=== PATIENT | male | born 1955 | race Caucasian/White ===

== ENCOUNTER 2021-09-11 08:28 | Day surgery (SDC) | payer MEDICARE, SELFPAY ==
[2021-09-11] VITALS (10 sets, daily range): BP systolic 112–179; BP diastolic 60–86; PULSE 55–83; RESP 16–22; TEMP 36.8–37; O2SAT 96–99; BMI 29.0
--- NOTE | ~2021-09-11 | FL_ITS ---
EXAMINATION: XR FLUOROSCOPY WITH IMAGES CLINICAL INFORMATION: Left UVJ calculus. Stent placement. COMPARISON: CT abdomen and pelvis with contrast 09/11/2021. TECHNIQUE: Fluoroscopy performed by Dr. Braulio Silverman. Fluoroscopy time: 34 seconds Cumulative dose: 13.57 mGy Images: 3 FINDINGS: Initial image shows contrast in the left urinary tract guidewire. Final image shows a left ureteral stent overlying left collecting system. No extravasation of contrast. FL/FL guidance in OR IMPRESSION: Fluoroscopy for urologic procedure.
--- NOTE | ~2021-09-11 | CT_ITS ---
EXAMINATION: CT ABDOMEN AND PELVIS WITH CONTRAST CLINICAL INFORMATION: Left lower quadrant and left flank abdominal pain COMPARISON: None TECHNIQUE: Multidetector volumetric images were obtained from the superior aspect of the liver through the pubic symphysis following administration 85 mL of Omnipaque 350 intravenous contrast. Sagittal and coronal reformatted images were obtained on the technologist's workstation. Oral contrast: Yes This CT examination was performed using dose optimization techniques as appropriate, variously including the following: *Automated exposure control *Adjustment of mA and/or kV according to patient size (this includes techniques or standardized protocols for targeted exams where dose is matched to indication/reason for exam; i.e. extremities or head) *Use of iterative reconstruction technique DLP: 689 mGy-cm FINDINGS: LUNG BASES: The visualized lung bases are unremarkable. LIVER, GALLBLADDER, AND BILIARY TREE: The liver is normal in size, shape, and attenuation. No focal hepatic lesion or biliary ductal dilatation is present. The gallbladder is unremarkable with no evidence of radiopaque gallstones, gallbladder wall thickening, or obvious pericholecystic inflammatory changes. PANCREAS: Unremarkable. SPLEEN: Unremarkable. ADRENAL GLANDS: Unremarkable. KIDNEYS AND URETERS: There is mild left hydronephrosis and ureteral dilatation from a 3 mm left UVJ stone. There is left perinephric fat stranding and stranding of the fat surrounding the left proximal ureter. This is probably secondary to obstruction. Differential would include infection. There is a small 1 mm stone in the upper pole of the left kidney. The right kidney is normal appearing. BLADDER: There is a 3 mm left UVJ stone. The bladder is otherwise normal. GASTROINTESTINAL TRACT: There are postsurgical changes to the sigmoid colon. There is mild diverticulosis. No evidence of diverticulitis is seen. Small and large bowel is otherwise unremarkable. The appendix is unremarkable. The stomach is unremarkable. ABDOMINAL WALL: No significant hernia is appreciated. LYMPH NODES: Normal. VASCULAR: Unremarkable. PELVIC VISCERA: Unremarkable. OSSEOUS STRUCTURES: Unremarkable. CT/CT abdomen pelvis w con IMPRESSION: Left hydronephrosis and ureteral dilatation from a 3 mm left UVJ stone. Stranding of the left perinephric fat and fat surrounding the left proximal ureter probably related to obstruction/backflow of urine. Differential would include infection. Small left upper pole renal stone. Diverticulosis. Fleischner guidelines were followed.
--- NOTE | 2021-09-11 09:29 | ED.ABDPAIN ---
HPI - Abdominal Pain General Chief Complaint: Abdominal Pain Stated Complaint: Colon rupture? Time Seen by Provider: 09/11/21 09:17 Source: patient Mode of arrival: ambulatory History of Present Illness HPI narrative: 65-year-old male with past medical history of diverticulitis s/p colon resection, renal stones, presenting to the ED complaining of left flank and LLQ abdominal pain since 03:00. Admits pain is constant with associated nausea, and dark BM this morning. Denies fever, chills, vomiting, diarrhea, dysuria/hematuria. Takes 81 ASA denies other AC MD elicited complaint: abdominal pain Pertinent past history: diverticulitis and kidney stones Related Data Home Medications Medication Instructions Recorded Confirmed aspirin 81 mg tablet,delayed 81 mg PO DAILY 09/11/21 09/11/21 release Allergies Allergy/AdvReac Type Severity Reaction Status Date / Time vancomycin Allergy Unknown Verified 09/11/21 08:52 Review of Systems Review of Systems Constitutional: No Fever, No Chills, No Fatigue, No Malaise ENT/Mouth: No Hearing loss, No Ear Pain, No Nasal Congestion, No sore throat, No Rhinorrhea, No Swallowing Difficulty Eyes: No Eye Pain, No Swelling, No Redness Cardiovascular: No Chest Pain, No SOB, No Edema, No Palpitations Respiratory: No Cough, No Sputum, No Dyspnea Gastrointestinal: + Nausea, No Vomiting, No Diarrhea, No Constipation, + Abdominal pain, No Hematochezia, + Melena Genitourinary: No Dysuria, No Urinary Frequency, No Hematuria, No Urinary Incontinence, No Urgency, + Flank Pain, No Urinary Flow Changes, No Hesitancy Musculoskeletal: No joint pain, No Myalgias, No Joint Swelling Skin: No Skin Lesions, No rash Neuro: No Weakness, No Numbness, No Loss of Consciousness, No Dizziness, No Headache Yes all other systems are reviewed and are negative [facility] Past Medical History Attestation statement: The following information was validated with the patient. Medical History Diverticulitis Surgical History History of resection of large bowel Social History Social History Patient Tobacco Use Status: Former Tobacco user Quit Date: 10/2007 Tobacco use type: Cigarette Smoked in Last 30 Days: No Are you DNR?: No Advance Directives: No Advance Directives Information Provided: Yes Physical Exam ED Vital Signs: Vital Signs - 24 hr 09/11/21 08:53 09/11/21 11:16 09/11/21 12:00 Temperature 98.3 F Pulse Rate 55 67 83 Respiratory Rate 20 22 H 18 Blood Pressure 137/86 179/80 H 148/60 H Pulse Oximetry 99 97 98 09/11/21 15:11 Temperature 98.5 F Pulse Rate 59 Respiratory Rate 16 Blood Pressure 119/63 Pulse Oximetry 97 BMI result Body Mass Index 29.0 Const General: cooperative, healthy appearing and no acute distress Orientation/consciousness: patient oriented x3 Limitations: no limitations HENMT Head: Yes normal to inspection and Yes atraumatic Ears: hearing grossly normal bilaterally General nose exam: Normal external nose present Face and sinus: Yes normal facial exam Eyes General: appearance normal, both eyes and all related structures EOM: EOMs intact bilaterally Neck Neck: Yes normal visual inspection and Yes no meningeal signs Resp Effort & Inspection: normal respiratory effort and no respiratory distress Cardio Rate: regular rate Heart sounds: S1 normal heart sound present and S2 normal heart sound present GI Inspection: Yes normal to inspection Palpation (GI): Soft to palpation, Tenderness to palpation present (GI) (Suprapubic) in the LLQ, no guarding and not rigid General: Yes CVA tenderness on the left Back/Spine/Pelvis Back: CVA tenderness Skin Rashes: no rashes Wounds: no wounds Neuro General: patient oriented x3, tone normal and no meningeal signs Gait exam (Neuro): Normal gait present Extrem General: Yes normal to inspection Course Course Course Narrative: -1020--leukocytosis of 19.2. Lactic acid 2.3 > blood cultures, 30mg/kg IVF and empiric Zosyn ordered. 1200-- CT abdomen pelvis w con IMPRESSION: Left hydronephrosis and ureteral dilatation from a 3 mm left UVJ stone. Stranding of the left perinephric fat and fat surrounding the left proximal ureter probably related to obstruction/backflow of urine. Differential would include infection. Small left upper pole renal stone. Diverticulosis. >> urology consulted -Dr. Silverman will evaluate patient in the ED, needs stent, added on procedure for later today. NPO at this time MDM - Abdominal Pain MDM Narrative Medical decision making narrative: 65-year-old male with past medical history of diverticulitis s/p colon resection, renal stones, presenting to the ED complaining of left flank and LLQ abdominal pain since 03:00. On exam vital signs stable, NAD, appears in pain, abdomen soft with lower/LLQ and left CVA tenderness, no rebound or guarding. On rectal brown stool noted. Concern for diverticulitis vs renal stone vs ?Pyelo vs occult GI bleeding Lower concern for appendicitis, cholecystitis/cholelithiasis or pancreatitis Plan: Labs, UA, IVF, CT abdomen/pelvis, symptomatic treatment, re-evaluate Differential Diagnosis Differential diagnosis: Likely abdominal pain and diverticulitis Medical Records Attestation: I reviewed the patient's medical records. Lab Data Attestation: I reviewed the patient's lab results. Result diagrams: 09/11/21 09:42 09/11/21 09:42 Labs: Lab Results 09/11/21 09/11/21 09/11/21 Range/Units 09:42 09:42 09:42 WBC 19.2 H (4.8-10.8) X10*3/uL RBC 4.38 L (4.60-5.80) X10*6/uL Hgb 14.5 (14.0-18.0) g/dl Hct 42.3 (42.0-52.0) % MCV 96.6 (80.0-98.0) fL MCH 33.1 H (27.0-33.0) pg MCHC 34.3 (31.0-36.0) g/dl RDW 13.3 (11.0-16.0) % Plt Count 223 (160-400) X10*3/uL MPV 10.2 (9.4-12.4) fL Immature Gran % (Auto) 0.9 H (0.0-0.4) % Neut % (Auto) 84.7 H (45-73) % Lymph % (Auto) 8.2 L (20-40) % [place] % (Auto) 5.9 (2-11) % Eos % (Auto) 0.1 (0-4) % Baso % (Auto) 0.2 (0-2) % Lymph # (Auto) 1.6 (1.2-4.9) X10*3/uL [place] # (Auto) 1.1 (0.1-1.2) X10*3/uL Eos # (Auto) 0.0 (0.0-0.4) X10*3/uL Baso # (Auto) 0.0 (0.0-0.2) X10*3/uL Abs Immat Gran (auto) 0.18 H (0.00-0.03) X10*3/uL Absolute Neuts (auto) 16.2 H (2.0-8.3) x10*3/uL Absolute Nucleated RBC 0.000 (0.0-0.012) X10*3/uL Nucleated RBC % (auto) 0.0 (0.0-0.2) /100WBC PT 10.6 (9.9-13.0) SEC INR 0.9 (0.9-1.1) Sodium 137 (135-145) mmol/L Potassium 4.6 (3.3-5.1) mmol/L Chloride 103 (96-108) mmol/L Carbon Dioxide 24 (22-29) mmol/L Anion Gap 15 (12-20) BUN 17 H (9-16) mg/dL Creatinine 1.17 (0.5-1.4) mg/dL Estim Creat Clear Calc 62.3 Estimated GFR > 60 Random Glucose 254 H (60-115) mg/dL Lactic Acid (0.5-2.0) mmol/L Lactic Acid F/U @ 2Hr (0.5-2.0) mmol/L Lactic Acid F/U @ 4Hr (0.5-2.0) mmol/L Calcium 9.3 (8.4-10.2) mg/dL Magnesium 1.9 (1.6-2.6) mg/dL Total Bilirubin 0.6 (0.0-1.0) mg/dL Direct Bilirubin 0.2 (0.0-0.5) mg/dL AST 14 (5-37) U/L ALT 23 (0-40) U/L Alkaline Phosphatase 91 (39-117) U/L Total Protein 6.8 (6.5-8.0) g/dL Albumin 3.9 (3.5-5.0) g/dL Lipase 20 (8-78) U/L Urine Color Urine Appearance Urine pH (5.0-8.0) Ur Specific [place] (1.005-1.025) Urine Protein (NEG-TRACE) MG/DL Urine Glucose (UA) (NEG) MG/DL Urine Ketones (NEG) MG/DL Urine Blood (NEG) Urine Nitrite (NEG) Ur Leukocyte Esterase (NEG) Urine RBC (0) /HPF Urine WBC (0-4) /HPF Ur Squamous Epith Cells /LPF Urine Bacteria /LPF Stool Occult Blood (NEGATIVE) COVID-19 (BALTAZAR) (Negative) COVID-19 Clin Com 09/11/21 09/11/21 09/11/21 Range/Units 09:42 11:15 11:41 WBC (4.8-10.8) X10*3/uL RBC (4.60-5.80) X10*6/uL Hgb (14.0-18.0) g/dl Hct (42.0-52.0) % MCV (80.0-98.0) fL MCH (27.0-33.0) pg MCHC (31.0-36.0) g/dl RDW (11.0-16.0) % Plt Count (160-400) X10*3/uL MPV (9.4-12.4) fL Immature Gran % (Auto) (0.0-0.4) % Neut % (Auto) (45-73) % Lymph % (Auto) (20-40) % [place] % (Auto) (2-11) % Eos % (Auto) (0-4) % Baso % (Auto) (0-2) % Lymph # (Auto) (1.2-4.9) X10*3/uL [place] # (Auto) (0.1-1.2) X10*3/uL Eos # (Auto) (0.0-0.4) X10*3/uL Baso # (Auto) (0.0-0.2) X10*3/uL Abs Immat Gran (auto) (0.00-0.03) X10*3/uL Absolute Neuts (auto) (2.0-8.3) x10*3/uL Absolute Nucleated RBC (0.0-0.012) X10*3/uL Nucleated RBC % (auto) (0.0-0.2) /100WBC PT (9.9-13.0) SEC INR (0.9-1.1) Sodium (135-145) mmol/L Potassium (3.3-5.1) mmol/L Chloride (96-108) mmol/L Carbon Dioxide (22-29) mmol/L Anion Gap (12-20) BUN (9-16) mg/dL Creatinine (0.5-1.4) mg/dL Estim Creat Clear Calc Estimated GFR Random Glucose (60-115) mg/dL Lactic Acid 2.3 H* (0.5-2.0) mmol/L Lactic Acid F/U @ 2Hr (0.5-2.0) mmol/L Lactic Acid F/U @ 4Hr (0.5-2.0) mmol/L Calcium (8.4-10.2) mg/dL Magnesium (1.6-2.6) mg/dL Total Bilirubin (0.0-1.0) mg/dL Direct Bilirubin (0.0-0.5) mg/dL AST (5-37) U/L ALT (0-40) U/L Alkaline Phosphatase (39-117) U/L Total Protein (6.5-8.0) g/dL Albumin (3.5-5.0) g/dL Lipase (8-78) U/L Urine Color YELLOW Urine Appearance CLEAR Urine pH 7.5 (5.0-8.0) Ur Specific [place] 1.010 (1.005-1.025) Urine Protein NEG (NEG-TRACE) MG/DL Urine Glucose (UA) 250 H (NEG) MG/DL Urine Ketones NEG (NEG) MG/DL Urine Blood TRACE (NEG) Urine Nitrite NEG (NEG) Ur Leukocyte Esterase NEG (NEG) Urine RBC 5-9 H (0) /HPF Urine WBC 0 (0-4) /HPF Ur Squamous Epith Cells NONE /LPF Urine Bacteria NONE /LPF Stool Occult Blood NEGATIVE (NEGATIVE) COVID-19 (BALTAZAR) (Negative) COVID-19 Clin Com 09/11/21 09/11/21 09/11/21 Range/Units 12:12 12:12 14:26 WBC (4.8-10.8) X10*3/uL RBC (4.60-5.80) X10*6/uL Hgb (14.0-18.0) g/dl Hct (42.0-52.0) % MCV (80.0-98.0) fL MCH (27.0-33.0) pg MCHC (31.0-36.0) g/dl RDW (11.0-16.0) % Plt Count (160-400) X10*3/uL MPV (9.4-12.4) fL Immature Gran % (Auto) (0.0-0.4) % Neut % (Auto) (45-73) % Lymph % (Auto) (20-40) % [place] % (Auto) (2-11) % Eos % (Auto) (0-4) % Baso % (Auto) (0-2) % Lymph # (Auto) (1.2-4.9) X10*3/uL [place] # (Auto) (0.1-1.2) X10*3/uL Eos # (Auto) (0.0-0.4) X10*3/uL Baso # (Auto) (0.0-0.2) X10*3/uL Abs Immat Gran (auto) (0.00-0.03) X10*3/uL Absolute Neuts (auto) (2.0-8.3) x10*3/uL Absolute Nucleated RBC (0.0-0.012) X10*3/uL Nucleated RBC % (auto) (0.0-0.2) /100WBC PT (9.9-13.0) SEC INR (0.9-1.1) Sodium (135-145) mmol/L Potassium (3.3-5.1) mmol/L Chloride (96-108) mmol/L Carbon Dioxide (22-29) mmol/L Anion Gap (12-20) BUN (9-16) mg/dL Creatinine (0.5-1.4) mg/dL Estim Creat Clear Calc Estimated GFR Random Glucose (60-115) mg/dL Lactic Acid (0.5-2.0) mmol/L Lactic Acid F/U @ 2Hr 2.4 H* (0.5-2.0) mmol/L Lactic Acid F/U @ 4Hr 1.9 (0.5-2.0) mmol/L Calcium (8.4-10.2) mg/dL Magnesium (1.6-2.6) mg/dL Total Bilirubin (0.0-1.0) mg/dL Direct Bilirubin (0.0-0.5) mg/dL AST (5-37) U/L ALT (0-40) U/L Alkaline Phosphatase (39-117) U/L Total Protein (6.5-8.0) g/dL Albumin (3.5-5.0) g/dL Lipase (8-78) U/L Urine Color Urine Appearance Urine pH (5.0-8.0) Ur Specific [place] (1.005-1.025) Urine Protein (NEG-TRACE) MG/DL Urine Glucose (UA) (NEG) MG/DL Urine Ketones (NEG) MG/DL Urine Blood (NEG) Urine Nitrite (NEG) Ur Leukocyte Esterase (NEG) Urine RBC (0) /HPF Urine WBC (0-4) /HPF Ur Squamous Epith Cells /LPF Urine Bacteria /LPF Stool Occult Blood (NEGATIVE) COVID-19 (BALTAZAR) Negative (Negative) COVID-19 Clin Com See Note Discharge Plan Discharge Clinical Impression: Ureterovesical junction (UVJ) obstruction Patient Disposition: Admitted As Inpatient Discharge Date/Time: 09/11/21 15:25
[2021-09-11] MEDS: 0.9 % Sodium Chloride 1,000 ML 999 ML IV ×2 (09:43→10:26)
[2021-09-11] MEDS: ondansetron HCL 4 MG/2 ML VIAL IVPUSH (09:43)
[2021-09-11 09:45] LABS: MANUAL DIFF FLAG NO
[2021-09-11] MEDS: Morphine Sulfate 2 MG/ML CARTRIDGE IVPUSH ×2 (09:49→11:19)
[2021-09-11 09:51] LABS: Basophils Percent Auto 0.2 % (0-2); Eosinophils Percent Auto 0.1 % (0-4); Hematocrit 42.3 % (42.0-52.0); Hemoglobin 14.5 g/dl (14.0-18.0); Imm Gran Abs Auto 0.18 X10*3/uL (0.00-0.03); Imm Gran Pct Auto 0.9 % (0.0-0.4); Lymphocytes Absolute Auto 1.6 X10*3/uL (1.2-4.9); Lymphocytes Percent Auto 8.2 % (20-40); Mean Corpuscular HGB Conc 34.3 g/dl (31.0-36.0); Mean Corpuscular Hemoglobin 33.1 pg (27.0-33.0); Mean Corpuscular Volume 96.6 fL (80.0-98.0); Mean Platelet Volume 10.2 fL (9.4-12.4); Monocytes Absolute Auto 1.1 X10*3/uL (0.1-1.2); Monocytes Percent Auto 5.9 % (2-11); Neutrophils Absolute Auto 16.2 x10*3/uL (2.0-8.3); Neutrophils Percent Auto 84.7 % (45-73); Platelet Count 223 X10*3/uL (160-400); Red Blood Count 4.38 X10*6/uL (4.60-5.80); Red Cell Distribution Width 13.3 % (11.0-16.0); White Blood Count 19.2 X10*3/uL (4.8-10.8)
[2021-09-11 09:55] LABS: INTERNATIONAL NORM RATIO 0.9 (0.9-1.1); Prothrombin Time 10.6 SEC (9.9-13.0)
--- NOTE | 2021-09-11 10:03 | PC.NURSE ---
Pt comes in from home with complaints of LLQ abd pain, L flank pain and nausea with dry heaves since 0300 this morning. Pt has a PMHX of diverticulitis as well as kidney stones. Pt denies any trouble urinating at this time. Pt is A&Ox4, LCA, abd soft TTP with +BS at this time. IV established, medicated as per MAR orders, awaiting CT scan at this time. call chew within reach, will continue to monitor.
[2021-09-11 10:07] LABS: Alanine Aminotransferase 23 U/L (0-40); Albumin Level 3.9 g/dL (3.5-5.0); Alkaline Phosphatase 91 U/L (39-117); Anion Gap 15 (12-20); Aspartate Amino Transferase 14 U/L (5-37); Bilirubin Direct 0.2 mg/dL (0.0-0.5); Bilirubin Total 0.6 mg/dL (0.0-1.0); Blood Urea Nitrogen 17 mg/dL (9-16); Calcium 9.3 mg/dL (8.4-10.2); Carbon Dioxide 24 mmol/L (22-29); Chloride 103 mmol/L (96-108); Creatinine Clr Calc Pharmacy 62.3; Estimated Glomerular Filt Rate > 60; Glucose Random 254 mg/dL (60-115); Lipase 20 U/L (8-78); Magnesium 1.9 mg/dL (1.6-2.6); Potassium 4.6 mmol/L (3.3-5.1); Sodium 137 mmol/L (135-145); Total Protein 6.8 g/dL (6.5-8.0)
[2021-09-11 10:08] LABS: Lactic Acid 2.3 mmol/L (0.5-2.0)
[2021-09-11] MEDS: 0.9 % Sodium Chloride 500 ML 999 ML IV ×2 (10:27→13:55)
[2021-09-11] MEDS: iohexoL 350 MG/ML 100 ML INFUS..BTL IV (11:16)
[2021-09-11] MEDS: Piperacillin Sodium/Tazobactam 3.375 GM in 0.9 % Sodium Chloride 50 ML IV (11:19)
[2021-09-11 11:28] LABS: OBS Int Ctl Valid YES; OBS1 NEGATIVE (NEGATIVE)
[2021-09-11 11:49] LABS: Reflex Lactate? Lactic Acid Added
[2021-09-11 12:11] LABS: Appearance Urine CLEAR; Color Urine YELLOW; Glucose Urine UA 250 MG/DL (NEG); Leukocyte Esterase Urine NEG (NEG); Nitrite Urine NEG (NEG); PH 7.5 (5.0-8.0); UACC Culture Trigger NO; Urine Blood TRACE (NEG); Urine Ketones NEG (NEG); Urine Protein NEG (NEG-TRACE)
[2021-09-11 12:33] LABS: WBC Urine 0 /HPF (0-4)
[2021-09-11 12:35] LABS: COVID-19 Test Negative (Negative)
[2021-09-11] MEDS: Ketorolac Tromethamine 15 MG/ML VIAL IVPUSH (12:35)
[2021-09-11 12:43] LABS: ~Lactic Acid-LAB USE ONLY 2.4 mmol/L (0.5-2.0)
--- NOTE | 2021-09-11 12:50 | PHA.MEDREC ---
Pharmacy Consult ? Medication Reconciliation Pharmacy has completed the medication reconciliation.
[2021-09-11] MEDS: levoFLOXacin/D5W 500 MG/100 ML PIGGYBACK 100 MG IV (13:55)
[2021-09-11 14:14] LABS: Reflex Lactate? 2 Y
[2021-09-11 14:46] LABS: ~Lactic Acid-LAB USE ONLY 1.9 mmol/L (0.5-2.0)
--- NOTE | 2021-09-11 15:42 | PC.NURSE ---
500 ml bag of Normal Saline finished on arrival to preop area, 1000 ml RL started in preop
--- NOTE | 2021-09-11 16:19 | PM.UROCN ---
History of Present Illness Consult details Consult date: 09/11/21 Narrative: Ender is a pleasant 65-year-old male Presents to hospital with left-sided flank pain Prior history of stones which he has typically passed without intervention Unable to tolerate intake or medications Creatinine 1.[address] scan 3 mm distal left ureteric stone with hydroureteronephrosis and significant stranding around kidney Based on constellation of symptoms and imaging results recommend cystoscopy with left retrograde and stent placement Review of Systems Constitutional: Constitutional: Reports as per HPI and Reports no additional constitutional complaints Cardiovascular: Cardiovascular: Reports as per HPI and Reports no additional cardiovascular complaints Respiratory: Respiratory: Reports as per HPI and Reports no additional respiratory complaints Gastrointestinal: Gastrointestinal: Reports as per HPI and Reports no additional gastrointestinal complaints Genitourinary: Genitourinary: Reports as per HPI Musculoskeletal: Musculoskeletal: Reports no additional musculoskeletal complaints and Reports as per HPI Neurologic: Reports system reviewed and no additional complaints, except as documented and Reports as per HPI PMFSH Past Medical History Medical History Diverticulitis Surgical History Surgical History History of resection of large bowel Social History Social History Patient Tobacco Use Status: Former Tobacco user Quit Date: 10/2007 Tobacco use type: Cigarette Smoked in Last 30 Days: No Are you DNR?: No Advance Directives: No Advance Directives Information Provided: Yes Meds Allergies Allergy/AdvReac Type Severity Reaction Status Date / Time vancomycin Allergy Unknown Verified 09/11/21 08:52 Active Medications: Current Medications Pharmacy Consult (Consult Rx Perform Med Rec) 1 each MISCELLANE ONCE PRN PRN Reason: Consult order Home Medications Medication Instructions Recorded Confirmed Last Taken Type aspirin 81 mg tablet,delayed 81 mg PO DAILY 09/11/21 09/11/21 09/10/21 History release Physical Exam Vital Signs: Vital Signs: Last Vital Signs Temp 98.5 F 09/11/21 15:11 Pulse 59 09/11/21 15:11 Resp 16 09/11/21 15:11 BP 119/63 09/11/21 15:11 Pulse Ox 97 09/11/21 15:11 BMI result Body Mass Index 29.0 Const: General: cooperative, healthy appearing, comfortable and no acute distress Orientation/consciousness: patient oriented x3 HEENT: Face and sinus: Yes normal facial exam Mouth: moist mucous membranes Neck: Neck: Yes normal visual inspection, Yes full ROM and Yes trachea midline Chest: Chest palpation & inspection: normal inspection of the chest Resp: Effort & Inspection: normal respiratory effort, able to speak in complete sentences and no respiratory distress GI: Inspection: Yes normal to inspection Back/Spine/Pelvis: Cervical Spine: normal cervical lordosis Thoracic/Lumbar Spine: thoracic and lumbar spine normal to inspection Skin: General skin exam: no rashes or lesions noted Neuro: General: patient oriented x3, tone normal and moves all extremities Extrem: General: Yes normal to inspection and Yes capillary refill normal Results Labs Result diagrams: 09/11/21 09:42 09/11/21 09:42 Labs: Abnormal lab results 09/11/21 09/11/21 09/11/21 Range/Units 09:42 09:42 09:42 WBC 19.2 H (4.8-10.8) X10*3/uL RBC 4.38 L (4.60-5.80) X10*6/uL MCH 33.1 H (27.0-33.0) pg Immature Gran % (Auto) 0.9 H (0.0-0.4) % Neut % (Auto) 84.7 H (45-73) % Lymph % (Auto) 8.2 L (20-40) % Abs Immat Gran (auto) 0.18 H (0.00-0.03) X10*3/uL Absolute Neuts (auto) 16.2 H (2.0-8.3) x10*3/uL BUN 17 H (9-16) mg/dL Random Glucose 254 H (60-115) mg/dL Lactic Acid 2.3 H* (0.5-2.0) mmol/L Lactic Acid F/U @ 2Hr (0.5-2.0) mmol/L Urine Glucose (UA) (NEG) MG/DL Urine RBC (0) /HPF 09/11/21 09/11/21 Range/Units 11:41 12:12 WBC (4.8-10.8) X10*3/uL RBC (4.60-5.80) X10*6/uL MCH (27.0-33.0) pg Immature Gran % (Auto) (0.0-0.4) % Neut % (Auto) (45-73) % Lymph % (Auto) (20-40) % Abs Immat Gran (auto) (0.00-0.03) X10*3/uL Absolute Neuts (auto) (2.0-8.3) x10*3/uL BUN (9-16) mg/dL Random Glucose (60-115) mg/dL Lactic Acid (0.5-2.0) mmol/L Lactic Acid F/U @ 2Hr 2.4 H* (0.5-2.0) mmol/L Urine Glucose (UA) 250 H (NEG) MG/DL Urine RBC 5-9 H (0) /HPF Short CBC 09/11/21 Range/Units 09:42 WBC 19.2 H (4.8-10.8) X10*3/uL Hgb 14.5 (14.0-18.0) g/dl Hct 42.3 (42.0-52.0) % Plt Count 223 (160-400) X10*3/uL BMP 09/11/21 09:42 Sodium 137 Potassium 4.6 Chloride 103 Carbon Dioxide 24 BUN 17 H Creatinine 1.17 Calcium 9.3 Liver Function 09/11/21 Range/Units 09:42 Total Bilirubin 0.6 (0.0-1.0) mg/dL Direct Bilirubin 0.2 (0.0-0.5) mg/dL AST 14 (5-37) U/L ALT 23 (0-40) U/L Alkaline Phosphatase 91 (39-117) U/L Albumin 3.9 (3.5-5.0) g/dL Urine 09/11/21 Range/Units 11:41 Urine Color YELLOW Urine Appearance CLEAR Urine pH 7.5 (5.0-8.0) Ur Specific [place] 1.010 (1.005-1.025) Urine Protein NEG (NEG-TRACE) MG/DL Urine Glucose (UA) 250 H (NEG) MG/DL All other labs normal. Assessment and Plan (1) Nephrolithiasis: Status: Acute (2) Elevated white blood cell count: Status: Acute (3) Hydroureteronephrosis: Status: Acute (4) Flank pain: Status: Acute Plan Risks, benefits and alternatives to therapy were discussed. These include but are not limited to infection, bleeding, damage to local organs and tissues, need for further interventions. Anesthetic risks regarding cardiac arrhythmia, blood clots, and potential mortality were discussed. The patient understands the typical recovery time and the outpatient nature of the procedure. After consideration of these risks the patient gives full informed consent and they wish to move ahead with the procedure. Cystoscopy, left retrograde, left stent placement Procedures Date of Service Date of Service: 09/11/21
--- NOTE | 2021-09-11 17:45 | MHC.SHP ---
Pre-Procedural Eval Section A Date of Service: 09/11/21 The patient is an INPATIENT: No Changes since office visit: No Cold of Flu in the past 2 weeks, No New Medical Problems, No Changes in Medication and No Patient answered all questions The History & Physical has been completed within 30 days and I have reviewed it.: Yes Section B Chief Complaint: Colon rupture? Details of Present Illness: distal left ureteric stone with hydroureteronephrosis Relevant Family History (Specify if Yes): No Relevant Social History: None Present Medications: see Short Stay Collaborative assessment Medical History: No relevant PMH History of Previous Operations: No relevant previous surgery Allergies: Allergies Allergy/AdvReac Type Severity Reaction Status Date / Time vancomycin Allergy Unknown Verified 09/11/21 08:52 Review of Systems Sugical H&P ROS: Negative: Constitution, Cardiovascular, Respiratory, Neurological, Psychiatric, Hem-Onc, Allergic/Immunologic, Gastrointestinal, Genitourinary, Musculoskeletal, Integumentary, Endocrine and Eyes/Ears/Nose/Throat Exam Surgical H&P Exam: Normal: HEENT, Normal: Heart, Normal: Lungs, Normal: Extremities, Normal: Abdomen, Normal: Skin and Normal: Neurological Plan Diagnosis/Plan: Unchanged ( cystoscopy, left retrograde, left stent placement) I have reviewed the history and physical and performed a pertinent physical examination on my patient. No changes have occurred unless specified.
--- NOTE | 2021-09-11 18:08 | P.CONAN_ITS ---
[facility] Active Problems Active Problems: All Active Problems (Updated 09/11/21 @ 17:15 by Kimmie Jackson) Flank pain (Acute) Hydroureteronephrosis (Acute) Elevated white blood cell count (Acute) Nephrolithiasis (Acute) Past Medical History Medical History Diverticulitis Family History Family history of problems with anesthesia: No Surgical History Surgical History History of resection of large bowel History of Problems with Anesthesia: No Social History Social History Patient Tobacco Use Status: Former Tobacco user Quit Date: 10/2007 Tobacco use type: Cigarette Smoked in Last 30 Days: No Are you DNR?: No Advance Directives: No Advance Directives Information Provided: Yes Meds Allergies Allergy/AdvReac Type Severity Reaction Status Date / Time vancomycin Allergy Unknown Verified 09/11/21 08:52 Active Medications: Current Medications Pharmacy Consult (Consult Rx Perform Med Rec) 1 each MISCELLANE ONCE PRN PRN Reason: Consult order Home Medications Medication Instructions Recorded Confirmed Last Taken Type aspirin 81 mg tablet,delayed 81 mg PO DAILY 09/11/21 09/11/21 09/10/21 History release Exam Exam Date and Time: September 11, [id number] Height,Weight and Vital Signs: Height 5 ft 6 in Weight 81.6 kg Last Vital Signs Temp 98.5 F 09/11/21 15:11 Pulse 59 09/11/21 15:11 Resp 16 09/11/21 15:11 BP 119/63 09/11/21 15:11 Pulse Ox 97 09/11/21 15:11 Pertinent Lab Results Pertinent Lab Results: Laboratory Tests 09/11/21 09/11/21 09/11/21 09:42 09:42 09:42 WBC 19.2 H RBC 4.38 L Hgb 14.5 Hct 42.3 MCV 96.6 MCH 33.1 H MCHC 34.3 RDW 13.3 Plt Count 223 MPV 10.2 Immature Gran % (Auto) 0.9 H Neut % (Auto) 84.7 H Lymph % (Auto) 8.2 L [place] % (Auto) 5.9 Eos % (Auto) 0.1 Baso % (Auto) 0.2 Lymph # (Auto) 1.6 [place] # (Auto) 1.1 Eos # (Auto) 0.0 Baso # (Auto) 0.0 Abs Immat Gran (auto) 0.18 H Absolute Neuts (auto) 16.2 H Absolute Nucleated RBC 0.000 Nucleated RBC % (auto) 0.0 PT 10.6 INR 0.9 Sodium 137 Potassium 4.6 Chloride 103 Carbon Dioxide 24 Anion Gap 15 BUN 17 H Creatinine 1.17 Estim Creat Clear Calc 62.3 Estimated GFR > 60 Random Glucose 254 H Lactic Acid Lactic Acid F/U @ 2Hr Lactic Acid F/U @ 4Hr Calcium 9.3 Magnesium 1.9 Total Bilirubin 0.6 Direct Bilirubin 0.2 AST 14 ALT 23 Alkaline Phosphatase 91 Total Protein 6.8 Albumin 3.9 Lipase 20 Urine Color Urine Appearance Urine pH Ur Specific [place] Urine Protein Urine Glucose (UA) Urine Ketones Urine Blood Urine Nitrite Ur Leukocyte Esterase Urine RBC Urine WBC Ur Squamous Epith Cells Urine Bacteria Stool Occult Blood COVID-19 (BALTAZAR) COVID-19 [employer] 09/11/21 09/11/21 09/11/21 09:42 11:15 11:41 WBC RBC Hgb Hct MCV MCH MCHC RDW Plt Count MPV Immature Gran % (Auto) Neut % (Auto) Lymph % (Auto) [place] % (Auto) Eos % (Auto) Baso % (Auto) Lymph # (Auto) [place] # (Auto) Eos # (Auto) Baso # (Auto) Abs Immat Gran (auto) Absolute Neuts (auto) Absolute Nucleated RBC Nucleated RBC % (auto) PT INR Sodium Potassium Chloride Carbon Dioxide Anion Gap BUN Creatinine Estim Creat Clear Calc Estimated GFR Random Glucose Lactic Acid 2.3 H* Lactic Acid F/U @ 2Hr Lactic Acid F/U @ 4Hr Calcium Magnesium Total Bilirubin Direct Bilirubin AST ALT Alkaline Phosphatase Total Protein Albumin Lipase Urine Color YELLOW Urine Appearance CLEAR Urine pH 7.5 Ur Specific [place] 1.010 Urine Protein NEG Urine Glucose (UA) 250 H Urine Ketones NEG Urine Blood TRACE Urine Nitrite NEG Ur Leukocyte Esterase NEG Urine RBC 5-9 H Urine WBC 0 Ur Squamous Epith Cells NONE Urine Bacteria NONE Stool Occult Blood NEGATIVE COVID-19 (BALTAZAR) COVID-19 [employer] 09/11/21 09/11/21 09/11/21 12:12 12:12 14:26 WBC RBC Hgb Hct MCV MCH MCHC RDW Plt Count MPV Immature Gran % (Auto) Neut % (Auto) Lymph % (Auto) [place] % (Auto) Eos % (Auto) Baso % (Auto) Lymph # (Auto) [place] # (Auto) Eos # (Auto) Baso # (Auto) Abs Immat Gran (auto) Absolute Neuts (auto) Absolute Nucleated RBC Nucleated RBC % (auto) PT INR Sodium Potassium Chloride Carbon Dioxide Anion Gap BUN Creatinine Estim Creat Clear Calc Estimated GFR Random Glucose Lactic Acid Lactic Acid F/U @ 2Hr 2.4 H* Lactic Acid F/U @ 4Hr 1.9 Calcium Magnesium Total Bilirubin Direct Bilirubin AST ALT Alkaline Phosphatase Total Protein Albumin Lipase Urine Color Urine Appearance Urine pH Ur Specific [place] Urine Protein Urine Glucose (UA) Urine Ketones Urine Blood Urine Nitrite Ur Leukocyte Esterase Urine RBC Urine WBC Ur Squamous Epith Cells Urine Bacteria Stool Occult Blood COVID-19 ([facility]TAZAR) Negative COVID-19 Clin Com See Note Airway Mallampati Class: II TM Dist: >3cm Neck ROM: Full Assessment and Plan Assessment Anesthesia Assessment: Anesthesia Plan Discussed and Chart Reviewed Final Anesthetic Review Family History of Problems with Anesthesia: No History of Problems with Anesthesia: No NPO: Yes ASA Class: II and Emergency Final Preanesthetic Review: No Changes in Pt Med Stat, Meds/Allgs Chart Reviewed, Consent Obtained/Reviewed and Anes Risks/Benef Reviewed Patient Risk: Low Procedure Risk: Low Anesthetic Plan Anesthetic Plan: GA Disposition: Standard PACU
--- NOTE | 2021-09-11 18:42 | P.OP_ITS ---
Operative Note Operative Note Date of Service: 09/11/21 Narrative: PreOperative Diagnosis: left distal ureteric stone Post Operative Diagnosis: left distal ureteric stone with hydronephrosis Procedure: cystoscopy, left retrograde, left stent placement, stone removal Surgeon: Dr Braulio Silverman Anesthesia: sedation Indications for procedure: left distal ureter external with hydroureteronephrosis Procedure: After informed consent was verified the patient was brought to the operating room and placed in a supine position. Anesthesia was administered per protocol. The patient was placed in modified dorsal lithotomy position and prepped and draped in a sterile fashion. A safety pause time-out was performed. Laterality of procedure and antibiotics were confirmed. appropriate imaging was available A 22 [place] cystoscope was introduced per urethra. No abnormality was noted. Both ureteric orifices were seen in a normal position. The left ureter was cannulated with an open ended catheter and a retrograde examination was performed. hydronephrosis present. Small stone then came free from ureter into bladder. . A Sensor guidewire was placed under fluoroscopy and a good coil was seen within the renal pelvis. A Six [place]ian by 24 cm double-J was advanced over the wire and up to the level of the renal pelvis under fluoroscopic and direct visualization. The stent was seen with appropriate coil within the renal pelvis and in the bladder after deployment. The patient tolerated the procedure well and was transferred in stable condition to the recovery area. Pathology: stone Drains: 6 [place] by 24 cm double-J stent
[2021-09-15 01:27] LABS: Stone Source LEFT URETERAL STONE
== END 2021-09-11 19:50 | disposition home or self-care (01) ==
LOC: HO.ED 16:26 → HO.SSS 17:02
PROVIDERS: Physician Assistant; Emergency Provider Emergency Medicine; PCP Internal Medicine; Visit Provider Urology
PROC: (CPT 52332; principal; 2021-09-11 17:10)
DX: N13.2 Hydronephrosis with renal and ureteral calculous obstruction (principal); D72.829 Elevated white blood cell count, unspecified; Z87.442 Personal history of urinary calculi; Z87.19 Personal history of other diseases of the digestive system; Z90.49 Acquired absence of other specified parts of digestive tract; Z79.82 Long term (current) use of aspirin; Z88.1 Allergy status to other antibiotic agents; Z87.891 Personal history of nicotine dependence; Z20.822 Contact with and (suspected) exposure to COVID-19
CPT/HCPCS: 52332; 36415; 74177; 80048; 80076; 81001; 81003; 82272; 82365; 83605; 83690; 83735; 85025; 85610; 87040; 87635; 88300; 96361; 96365; 96375; 96376; 99285; C1758; C1769; C2617; J1100; J1885; J1956; J2250; J2270; J2405; J2543; J3010; Q9967

== ENCOUNTER → 2021-09-18 14:54 | Outpatient (BNVA) | payer MEDICARE, SELFPAY | PROVIDERS: PCP Internal Medicine; Visit Provider Urology | DX: N20.0 Calculus of kidney (principal) | CPT/HCPCS: 52310; 99212 ==

== ENCOUNTER 2021-10-25 13:59 | Outpatient (REF) | payer MEDICARE, SELFPAY ==
--- NOTE | ~2021-10-25 | US_ITS ---
EXAMINATION: US RETROPERITONEAL LIMITED (RENAL ONLY) CLINICAL INFORMATION: Calculus of kidney. COMPARISON: CT abdomen and pelvis with contrast 09/11/2021. TECHNIQUE: Real-time imaging of the kidneys. FINDINGS: RIGHT KIDNEY: 10.3 x 6.4 x 5.0 cm (SAG x AP x TRV). The kidney is normal in size, contour, and echogenicity. Renal cortical thickness is normal. No calculi or focal parenchymal lesions. No hydronephrosis. LEFT KIDNEY: 11.0 x 6.4 x 5.1 cm (SAG x AP x TRV). The kidney is normal in size, contour, and echogenicity. Renal cortical thickness is normal. No calculi or focal parenchymal lesions. Tiny left renal stones seen by CT not appreciated. No hydronephrosis. US/US renal BI IMPRESSION: Normal renal ultrasound.
== END 2021-10-25 14:00 | disposition home or self-care (01) ==
LOC: HO.HMGCX 13:59
PROVIDERS: PCP Internal Medicine; Visit Provider Urology
DX: N20.0 Calculus of kidney (principal)
CPT/HCPCS: 76775

== ENCOUNTER 2023-02-14 13:38 | Outpatient (AMB) | payer MEDICARE, SELFPAY ==
--- NOTE | 2023-02-14 15:10 | AM.OFFWIN_ITS ---
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 Elbow is warm to the touch and painful when he puts slight pressure on it. Patient Tobacco Use Status: Former Tobacco user Quit Date: 10/2007 Allergies vancomycin Allergy (Verified 02/14/23 15:13) Unknown Do you need a note to return to daycare/school/sports/work: No HPI HPI Comments History of Present Illness Details This is a who presents to the office today for sick visit. Patient complaining of progressively worsening right elbow pain and swelling x1 month. He denies any known trauma or injury to the area. He denies any erythema of the elbow. He states the area is slightly warm to the touch. He denies any fevers or chills. He has been utilizing ibuprofen and ice without much relief. COUNT INCLUDES THE [facility] Medical History Diverticulitis Surgical History History of resection of large bowel Social History Patient Tobacco Use Status: Former Tobacco user Quit Date: 10/2007 Tobacco use type: Cigarette Review of Systems Const All systems reviewed & are unremarkable except as noted in HPI and below Reports no additional complaints Eyes Reports no additional complaints ENT Reports no additional complaints Card Reports no additional complaints Resp Reports no additional complaints GI Reports no additional complaints Reports no additional complaints Musc Reports no additional complaints Skin/Breast Reports system reviewed and no additional complaints, except as documented Neuro Reports no additional complaints Psych Reports no additional complaints Endo Reports no additional complaints Yaron/Lymph Reports no additional complaints Aller/Immun Reports no additional complaints Physical Exam Vital Signs: Last Vital Signs Pulse 60 02/14/23 15:11 BP 120/70 02/14/23 15:11 Pulse Ox 98 02/14/23 15:11 Oxygen Delivery Method Room Air 02/14/23 15:11 Const Other: Vital signs reviewed. Constitutional: Non-toxic appearing. No acute distress. Well-developed and well-nourished. HEENT: Normocephalic and atraumatic. Tympanic membranes without erythema, edema, or bulging bilaterally. External auditory canals without erythema or edema bilaterally. Moist mucous membranes. No pharyngeal erythema or exudates. Skin: Warm and dry. No rashes or lesions noted. Neck: Full and painless range of motion. No cervical lymphadenopathy. Cardio: Regular rate and rhythm. No murmurs, gallops, or rubs. No lower extremity edema. No JVD. Pulmonary: No respiratory distress. No accessory muscle usage. Clear to auscultation bilaterally without wheezing, crackles, or rhonchi. Gastrointestinal: Soft, nontender, and nondistended in all 4 quadrants. Normoa ctive bowel sounds in all 4 quadrants. Genitourinary: No CVA tenderness. Musculoskeletal: Swelling and tenderness to pa lpation of the right elbow. Slightly warm to the touch but no erythema. Full range of motion of the right elbow. Neuro: Alert and oriented x4. Cranial nerves 2-12 grossly intact. No focal deficits appreciated. Psych: Normal mood and affect. Assessment & Plan Assessment & Plan (1) Olecranon bursitis of right elbow: Code(s): M70.21 - Olecranon bursitis, right elbow Plan: This is a 67-year-old male presenting to the office complaining of progressively worsening right elbow pain and swelling x1 month. On physical examination, there is swelling and tenderness to palpation of the right elbow. There is mild warmth of the right elbow but no erythema. History and physical most consistent with olecranon bursitis; low suspicion for septic arthritis or septic bursitis. Recommend rest/activity modification, ice to the area, and elevation of the extremity. Continue with acetaminophen/ibuprofen for pain management as long as patient has no medical contraindications. Patient given a prescription for p.o. prednisone 40 mg daily x5 days. He was instructed to follow-up here if his symptoms are persistent or worsening for orthopedic referral. Patient would prefer to defer orthopedics referral at this time. Patient was also offered an x-ray of the right elbow, but he declined at this time and I have low suspicion for fracture given no trauma or injury. Patient was also instructed to follow-up here or proceed directly to the emergency room if he were to develop fever/ chills or erythema of the elbow. Patient verbalized understanding and is agreeable with the plan. Medications: New prednisone 40 mg (2 x 20 mg) PO DAILY 10 tabs 0RF Coding Level of Care Code New Pt Level 3 (52920) Diagnoses Olecranon bursitis of right elbow M70.21
[2023-02-14 15:11] VITALS: BP 120/70; PULSE 60; O2SAT 98
== END 2023-02-14 15:51 | disposition home or self-care (01) ==
PROVIDERS: PCP Internal Medicine; Visit Provider Physician Assistant Medical
DX: M70.21 Olecranon bursitis, right elbow (principal)
CPT/HCPCS: 99203

== ENCOUNTER 2023-02-26 08:50 | Outpatient (AMB) | payer MEDICARE, SELFPAY ==
--- NOTE | 2023-02-26 10:11 | AM.OFFWIN_ITS ---
Intake Vital Signs 02/26/23 10:12 Weight 83.461 kg BP 120/80 Blood Pressure Location Lt brachial Position Sitting Pulse 80 Pulse Source Pulse Oximeter Pulse Oximetry (%) 98 Oxygen Delivery Method Room Air Intake Visit Reasons: EP-right elbow pain and swollen Intake Note: Patient here for right arm/elbow swelling which has been present for some time now and was given prednisone which helped but then it came right back. Patient Tobacco Use Status: Former Tobacco user Quit Date: 10/2007 Allergies vancomycin Allergy (Verified 02/26/23 10:13) Unknown Do you need a note to return to daycare/school/sports/work: No HPI HPI Comments History of Present Illness Details 1021 This is a 67-year-old male presenting to the clinic for a sick visit complaining a right elbow pain, swelling worsening for over a month and a half. Denies any known trauma to the area. Tells me this happened a few weeks ago, he was given prednisone, improved however it came back. Patient denies any numbness, tingling, fevers, chills, chest pain, shortness of breath, nausea and vomiting. Patient has been taking ibuprofen with little to no relief. Physical examination significant for swelling to the olecranon process, no overlying erythema or warmth, full range of motion, painless, 2+ radial pulses equal bilateral. No wrist drop. Capillary refill less than 2 seconds to bilateral upper extremity digits. Normal sensation distally. History and physical exam consistent with possible olecranon bursitis versus gout versus pseudogout versus inflammatory arthritis. Unlikely neurovascular compromise threat to [place], septic joint. Plan at this time will discharge home on prednisone short course, will give him an Jean wrap to use during the day and to take up pending. Will also give him orthopedic referral. Educated patient on diagnosis and treatment plan, answered all question, patient verbalizes understanding. At this time patient will be discharged home, advised to return with new or worsening symptoms. Educated on worrisome signs and symptoms and when to return. At this time I feel comfortable discharge home. [facility] Medical History Diverticulitis Surgical History History of resection of large bowel Social History Patient Tobacco Use Status: Former Tobacco user Quit Date: 10/2007 Tobacco use type: Cigarette Physical Exam Vital Signs: Last Vital Signs Pulse 80 02/26/23 10:12 BP 120/80 02/26/23 10:12 Pulse Ox 98 02/26/23 10:12 Oxygen Delivery Method Room Air 02/26/23 10:12 vss Appearance: Alert.? Oriented X3.? No acute distress.? Head: Normocephalic, atraumatic, no step-offs or deformities Eyes: Pupils equal, round and reactive to light.? CVS: Normal heart rate and rhythm.? Pulses normal.? Respiratory: No respiratory distress.? Breath sounds normal.? Abdomen: Soft and nontender.? Skin: Skin warm and dry.? Normal skin color.? Normal skin turgor.? Extremities: No lower extremity edema.? No calf ttp. 5/5 strength to bilateral upper and lower extremities + swelling to the olecranon process, no overlying erythema or warmth, full range of motion, painless, 2+ radial pulses equal leonard ateral. No wrist drop. Capillary refill less than 2 seconds to bilateral upper extremity digits. Normal sensation distally. Back: No midline tenderness, no C-spine tenderness, full range of motion, no CVA tenderness bilaterally Neuro: Oriented X 3.? No motor deficit.? No sensory deficit. CN 2-12 intact Assessment & Plan Assessment & Plan (1) Olecranon bursitis: Code(s): M70.20 - Olecranon bursitis, unspecified elbow Plan Take your medications as prescribed. If you were prescribed antibiotics today, it is important that you take your medication to their entirety, do not skip any doses, do not finish them early. Follow-up with your primary care provider this week. Return to the emergency department with new or worsening symptoms. Such as fevers, chills, chest pain, shortness of breath, nausea, vomiting, dizziness, headache, vision changes, lethargy In case of emergency call 911 Orders: Orders XR elbow RT 2V Today M70.20 - Olecranon bursitis, unspecified elbow Referrals Orthopedics Referral M70.20 - Olecranon bursitis, unspecified elbow Medications: New prednisone 60 mg (3 x 20 mg) PO DAILY 5 days 15 tabs 0RF Coding Level of Care Code Est Pt Level 3 (35732) Diagnoses Olecranon bursitis M70.20
[2023-02-26 10:12] VITALS: BP 120/80; PULSE 80; O2SAT 98
== END 2023-02-26 10:41 | disposition home or self-care (01) ==
PROVIDERS: PCP Internal Medicine; Visit Provider Physician Assistant
DX: M70.20 Olecranon bursitis, unspecified elbow (principal)
CPT/HCPCS: 99213

== ENCOUNTER 2023-02-26 10:28 | Outpatient (REF) | payer MEDICARE, SELFPAY ==
--- NOTE | ~2023-02-26 | XR_ITS ---
EXAMINATION: XR ELBOW, RIGHT CLINICAL INFORMATION: Olecranon bursitis COMPARISON: None available. TECHNIQUE: AP, lateral, and oblique views of the right elbow. FINDINGS: Some stippled calcification at the insertion of the triceps on the olecranon. This may be dystrophic calcific tendinosis. Mild avulsion injury cannot be excluded. There is adjacent soft tissue increase. A small bony density in the region of the lateral collateral ligament and spurring in the region of the distal humerus lateral collateral region may well be degenerative in nature. Small loose body in the joint cannot be excluded No acute bony erosion. No evidence for osteopenia. XR/XR elbow RT 2V IMPRESSION: Soft tissue swelling posterior to the olecranon. As described some stippled calcification at the insertion of the triceps may indicate calcific tendinosis versus mild avulsion injury if there is been history of trauma. Otherwise as described some degenerative changes
== END 2023-02-26 10:29 | disposition home or self-care (01) ==
LOC: HO.HMGCLDS 10:28
PROVIDERS: Visit Provider Physician Assistant
DX: M70.20 Olecranon bursitis, unspecified elbow (principal)
CPT/HCPCS: 73070

== ENCOUNTER 2023-03-06 09:35 | Outpatient (AMB) | payer MEDICARE, SELFPAY ==
--- NOTE | 2023-03-06 09:51 | A.OFFVIS_ITS ---
Intake Vital Signs 03/06/23 09:54 Height 5 ft 6 in Weight 178 lb BMI 28.7 Intake Visit Reasons: ED F/U- RT Olecranon bursitis Intake Note: John a 67 year old male who presents today as a new patient for an evaluation of right elbow. Patient reports swelling and pain for about a month. Denies injury. States he was given 2 rounds of prednisone which has helped however pain and swelling comes back. Complaints of slight numbness and tingling as well as itchiness. Allergies vancomycin Allergy (Verified 03/06/23 09:58) Unknown HPI ED F/U- RT Olecranon bursitis HPI Details 67-year-old male who presents to the off ice today for an ER follow-up of right elbow pain for about a month. He states he has swelling and pain in his elbow and rates the pain as 3 on the scale of 0-10. His pain is aggravated at night which makes him unable to sleep. He also c/o slight numbness and tingling as well as itchiness in his elbow. He was seen at walk-in clinic where he was prescribed prednisone which provided him relief but does not provide him relief anymore. He takes baby aspirin and ibuprofen for his pain. He does not have a history of gout. [facility] Medical History Diverticulitis Surgical History History of resection of large bowel Social History (Updated 03/06/23 @ 09:54 by DELROY Carson) Patient Tobacco Use Status: Former Tobacco user Quit Date: 10/2007 Tobacco use type: Cigarette Current occupational status: retired Current occupation: right hand dominant Review of Systems Const All systems reviewed & are unremarkable except as noted in HPI and below Physical Exam Vital Signs: BMI result Body Mass Index 28.7 Extrem Other: Right elbow: Normal to inspection. He does have a trace olecranon bursitis. No redness, warmth or tenderness to palpation. He has full ROM without pain. NVI. Assessment & Plan Assessment & Plan (1) Olecranon bursitis of right elbow: Code(s): M70.21 - Olecranon bursitis, right elbow Plan We discussed conservative management, which includes compression, NSAIDs and activity modifications. If symptoms worsen, the area becomes red, hot and painful, they should return to see me. Otherwise, PRN. Patient Instructions: Scribed for Elmo Chapa PA-C, by Yung Bolanos director medical science, on 03/06/2023 at 9:45 AM EST. I, Elmo Chapa PA-C, have personally reviewed and agree with the information entered by the scribe. Coding Level of Care Code New Pt Level 3 (14195) Diagnoses Olecranon bursitis of right elbow M70.21
[2023-03-06 09:54] VITALS: BMI 28.7
== END 2023-03-06 10:38 | disposition home or self-care (01) ==
PROVIDERS: PCP Internal Medicine; Visit Provider Physician Assistant
DX: M70.21 Olecranon bursitis, right elbow (principal)
CPT/HCPCS: 99203

== ENCOUNTER → 2023-03-06 09:35 | Outpatient (BNVA) | payer MEDICARE, SELFPAY | PROVIDERS: PCP Internal Medicine; Visit Provider Physician Assistant ==

== ENCOUNTER 2023-04-21 14:24 | Outpatient (AMB) | payer MEDICARE, SELFPAY ==
--- NOTE | 2023-04-21 14:32 | A.OFFVIS_ITS ---
Intake Vital Signs 04/21/23 14:33 Height 5 ft 6 in Weight 158 lb BMI 25.5 Handedness Right Intake Visit Reasons: OV-right elbow pain and swollen-Follow up Intake Note: John is a 67 year old male who presents today as a new patient for an evaluation of right elbow. Patient reports still having soreness. He states when he removes his compression sleeve form his elbow he notices it filling up back with blood. Patient states he is unable to apply pressure on his elbow. Denies numbness and tingling. Allergies vancomycin Allergy (Verified 03/06/23 09:58) Unknown HPI OV-right elbow pain and swollen-Follow up HPI Details 67-year-old male who returns to the [facility] today for a follow-up of right elbow pain. He states he has soreness and is currently unable to apply pressure on his elbow. His pain is aggravated in the mornings. He also c/o noticing his elbow filling up back with blood when he removes his compression sleeve. He denies any numbness or tingling. [facility] Medical History Diverticulitis Surgical History History of resection of large bowel Patient Tobacco Use Status: Former Tobacco user Quit Date: 10/2007 Tobacco use type: Cigarette Current occupational status: retired Current occupation: right hand dominant Review of Systems Const All systems reviewed & are unremarkable except as noted in HPI and below Physical Exam Vital Signs: BMI result Body Mass Index 25.5 Extrem Other: Right elbow: Normal to inspection. He does have a trace olecranon bursitis. No redness, warmth or tenderness to palpation. He has full ROM without pain. NVI. Assessment & Plan Assessment & Plan (1) Olecranon bursitis of right elbow: Code(s): M70.21 - Olecranon bursitis, right elbow Plan He will continue with increasing activity as tolerated being mindful to not rest or lean on his right elbow to further worsen his symptoms. He will use compression sleeve as needed and see back as planned. Patient Instructions: Scribed for Ta-Ina Chapa PA-C, by Yung Abhang, durable medical equipment repairer, on 04/21/2023 at 2:45 PM MARCOS. Elmo Flanagan PA-C, have personally reviewed and agree with the information entered by the scribe. Coding Level of Care Code Est Pt Level 3 (01557) Diagnoses Olecranon bursitis of right elbow M70.21
[2023-04-21 14:33] VITALS: BMI 25.5
== END 2023-04-21 15:08 | disposition home or self-care (01) ==
PROVIDERS: PCP Internal Medicine; Visit Provider Physician Assistant
DX: M70.21 Olecranon bursitis, right elbow (principal)
CPT/HCPCS: 99213

== ENCOUNTER → 2023-04-21 14:24 | Outpatient (BNVA) | payer MEDICARE, SELFPAY | PROVIDERS: PCP Internal Medicine; Visit Provider Physician Assistant | DX: M70.21 Olecranon bursitis, right elbow (principal) | CPT/HCPCS: 99212 ==

== ENCOUNTER 2023-08-01 12:26 | Outpatient (AMB) | payer MEDICARE, SELFPAY ==
[2023-08-01 12:29] VITALS: BP 120/72; PULSE 70; O2SAT 95; BMI 28.4
--- NOTE | 2023-08-01 12:29 | MHC.PC.OV ---
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 Intake Note: Pt is here to est care Pt is due for colon screening pt needs a new referral and needs his prostate checked Allergies vancomycin Allergy (Severe, Verified 08/01/23 12:40) Facial Swelling Medication List - Last Reconciled 08/01/23 by TRACY Mahan aspirin 81 mg PO DAILY Saccharomyces boulardii (Digest Probiotic (S.boulardii)) 250 mg PO BID Tobacco use date assessed: 08/01/23 Fall risk assessment: No Falls in past year Last assessed Fall Risk: 08/01/23 Dental Screening Dental Screen Date: 08/01/23 Did you have a dental visit in the last 12 months?: Yes Did you have a dental problem in the last 6 months where you did not have access to dental care?: No Was dental information given to patient?: Patient has dentist HPI HPI Comments History of Present Illness Details Patient is a 67-year-old male here for a sick visit. He has a primary concern for exacerbation of hyperlipidemia, he has been off a statin for several years. Patient denies symptoms. Will order fasting labs today. Patient is due for colonoscopy, will refer. Patient also has strong family history of prostate cancer, will order PSA. [facility] Medical History Diverticulitis Surgical History H/O rotator cuff surgery History of resection of large bowel Social History Housing: House Patient Tobacco Use Status: Former Tobacco user Quit Date: 10/2007 Tobacco use type: Cigarette e-Cigarette/Vaping Use: Never Used Second Hand Smoke Exposure: No Current occupational status: retired Current occupation: right hand dominant Questionnaire PHQ-9 Over the last 2 weeks, how often have you been bothered by any of the following problems? 1. Little interest or pleasure in doing things: not at all 2. Feeling down, depressed, or hopeless: not at all 3. Trouble falling or staying asleep, or sleeping too much: not at all 4. Feeling tired or having little energy: not at all 5. Poor appetite or overeating: not at all 6. Feeling bad about yourself - or that you are a failure or have let yourself or your family down: not at all 7. Trouble concentrating on things, such as reading the newspaper or watching television: not at all 8. Moving or speaking so slowly that other people could have noticed. Or the opposite - being so fidgety or restless that you have been moving around a lot more than usual: not at all 9. Thoughts that you would be better off or of hurting yourself in some way: not at all Total score: 0 Depression Screening Interpretation: Negative Depression Screening Done: Yes 71666 - PHQ-9 Billing: Yes Source: Developed by Drs. Fredy Barrios, Karely Mora, Oskar Roca and colleagues, with an educational david from [employer]. Thrive Questionnaire Date Thrive assessed: 08/01/23 I am a: Patient What is your living situation today?: I have a steady place to live Within the past 12 months, did the food you bought not last and you didn't have the money to get more?: Never true Within the past 12 months, did you worry whether your food would run out before you got money to buy more?: Never true Do you have trouble paying for medicines?: No Do you have trouble getting transportation to medical appointments?: No Do you have trouble paying your heating and electricity bill?: No Do you have trouble taking care of your child, family member or friend?: No Do you have trouble with day-to-day activities such as bathing, preparing meals, shopping, managing finances, etc.?: No Are you currently unemployed and looking for a job?: No Are you interested in more education?: No THRIVE Score: 0 LAMONTE-7 AMB Questionnaire LAMONTE-7 Date LAMONTE - 7 assessed: 08/01/23 Feeling nervous, anxious, or on edge: 0 = Not at all Not being able to stop or control worryin = Not at all Worrying too much about different things: 0 = Not at all Trouble relaxin = Not at all Being so restless that it is hard to sit still: 0 = Not at all Becoming easily annoyed or irritable: 0 = Not at all Feeling afraid as if something awful might happen: 0 = Not at all Total LAMONTE-7 score (0-4 normal; 5-9 mild; 10-14 moderate; 15-21 severe): 0 Source: Developed by Drs. Fredy Barrios, Karely Mora, Oskar Roca and colleagues, with an educational david from [employer]. LAMONTE-7 Assessment Billing LAMONTE-7 Assessment Tool: LAMONTE-7 Assessment 22722 Review of Systems Const All systems reviewed & are unremarkable except as noted in HPI and below Physical exam (Primary Care) Vital Signs: Last Vital Signs Pulse 70 08/01/23 12:29 BP 120/72 08/01/23 12:29 Pulse Ox 95 08/01/23 12:29 Oxygen Delivery Method Room Air 08/01/23 12:29 Care Plan Goal for BP management: Patient's blood pressure is stable. BMI result Body Mass Index 28.4 Tobacco/Smoking Status: Tobacco use Status Tobacco use date assessed 08/01/23 08/01/23 12:37 Patient Tobacco Use Status Former Tobacco user 08/01/23 12:37 Tobacco use type Cigarette 08/01/23 12:37 e-Cigarette/Vaping Use Never Used 08/01/23 12:37 Depression Screening Interpretation: Negative Const Other: Appearance: Alert.? Oriented X3.? No acute distress.? Head: Normocephalic, atraumatic. Neck: Normal inspection.? Neck supple.? CVS: Normal heart rate and rhythm.? Pulses normal.? Respiratory: No respiratory distress.? Breath sounds normal.? Neuro: Oriented X 3.? No motor deficit.? No sensory deficit. CN 2-12 intact Assessment and Plan Assessment & Plan (1) Hyperlipidemia: Comment: Patient has history of hyperlipidemia, states he has been off statin for several years. Will draw fasting labs. Code(s): E78.5 - Hyperlipidemia, unspecified Qualifiers: Hyperlipidemia type: unspecified Qualified Code(s): E78.5 - Hyperlipidemia, unspecified (2) Screening for colon cancer: Comment: Patient will give referred to Gastroenterology. Code(s): Z12.11 - Encounter for screening for malignant neoplasm of colon Plan: Take your medications as prescribed. If you were prescribed antibiotics today, it is important that you take your medication to their entirety, do not skip any doses, do not finish them early. Follow-up with your primary care provider this week. Return to the emergency department with new or worsening symptoms. Such as fevers, chills, chest pain, shortness of breath, nausea, vomiting, dizziness, headache, vision changes, lethargy In case of emergency call 911 Plan Follow-up with physical exam 3 months Orders: Orders PSA,Total (Free>4and<10) Today Z12.5 - Encounter for screening for malignant neoplasm of prostate Vitamin B6 Today Z13.21 - Encounter for screening for nutritional disorder UA CC w/rflx Micro + Cult Today Z13.89 - Encounter for screening for other disorder Comprehensive Met. Panel Today Z91.89 - Other specified personal risk factors, not elsewhere classified Complete Blood Count Auto Diff Today Z13.0 - Encounter for screening for diseases of the blood and blood-forming organs and certain disorders involving the immune mechanism Hemoglobin A1c Today Z13.1 - Encounter for screening for diabetes mellitus Vitamin D 25-OH (D2 and D3) Today Z13.21 - Encounter for screening for nutritional disorder Vitamin B12 Today Z13.21 - Encounter for screening for nutritional disorder TSH reflex Free T4 Today Z13.29 - Encounter for screening for other suspected endocrine disorder Lipid Panel Today Z13.220 - Encounter for screening for lipoid disorders Referrals Gastroenterology Referral Z12.11 - Encounter for screening for malignant neoplasm of colon Review Flu Vaccine not done: patient reason Coding Level of Care Code Est Pt Level 4 (13807) Diagnoses Hyperlipidemia, unspecified hyperlipidemia type E78.5 Hyperlipidemia type: unspecified Screening for colon cancer Z12.11 Additional Codes LAMONTE-7 Assessment Billing - LAMONTE-7 Assessment Tool: LAMONTE-7 Assessment 83282 ([id number]) Time Spent (min) 32
== END 2023-08-01 13:06 | disposition home or self-care (01) ==
PROVIDERS: PCP Internal Medicine; Visit Provider Nurse Practitioner Primary Care
DX: E78.5 Hyperlipidemia, unspecified (principal); Z12.11 Encounter for screening for malignant neoplasm of colon
CPT/HCPCS: 99214

== ENCOUNTER 2023-08-06 07:15 | Outpatient (REF) | payer MEDICARE, SELFPAY ==
[2023-08-06 11:25] LABS: MANUAL DIFF FLAG NO
[2023-08-06 11:40] LABS: Appearance Urine Clear; Color Urine Yellow; Glucose Urine UA Negative (Negative); Leukocyte Esterase Urine Negative (Negative); Nitrite Urine Negative (Negative); Specific Gravity - Urine 1.015 (1.005-1.025); Urine Blood Negative (Negative); Urine Ketones Negative (Negative); Urine Protein Negative (Neg-Trace)
[2023-08-06 11:43] LABS: Basophils Absolute Auto 0.1 X10*3/uL (0.0-0.2); Basophils Percent Auto 1.1 % (0-2); Eosinophils Absolute Auto 0.2 X10*3/uL (0.0-0.4); Eosinophils Percent Auto 2.6 % (0-4); Hemoglobin 14.3 g/dl (14.0-18.0); Imm Gran Abs Auto 0.01 X10*3/uL (0.00-0.03); Imm Gran Pct Auto 0.2 % (0.0-0.4); Lymphocytes Percent Auto 35.4 % (20-40); Mean Corpuscular Hemoglobin 32.1 pg (27.0-33.0); Mean Corpuscular Volume 94.4 fL (80.0-98.0); Mean Platelet Volume 10.5 fL (9.4-12.4); Monocytes Absolute Auto 0.5 X10*3/uL (0.1-1.2); Monocytes Percent Auto 9.1 % (2-11); Neutrophils Absolute Auto 2.9 x10*3/uL (2.0-8.3); Neutrophils Percent Auto 51.6 % (45-73); Platelet Count 262 X10*3/uL (160-400); Red Blood Count 4.45 X10*6/uL (4.60-5.80); Red Cell Distribution Width 14.4 % (11.0-16.0); White Blood Count 5.7 X10*3/uL (4.8-10.8)
[2023-08-06 12:03] LABS: PSA,Total (Free>4and<10) 0.72 ng/mL (0.00-4.00)
[2023-08-06 12:10] LABS: Alanine Aminotransferase 19 U/L (0-40); Albumin Level 4.1 g/dL (3.5-5.0); Alkaline Phosphatase 76 U/L (39-117); Anion Gap 11 (12-20); Aspartate Amino Transferase 16 U/L (5-37); Bilirubin Total 0.6 mg/dL (0.0-1.0); Blood Urea Nitrogen 11 mg/dL (9-16); Calcium 9.3 mg/dL (8.4-10.2); Carbon Dioxide 26 mmol/L (22-29); Chloride 108 mmol/L (96-108); Cholesterol 223 mg/dL (<200); Estimated Glomerular Filt Rate > 60; Glucose Random 151 mg/dL (60-115); HDL Cholesterol 29 mg/dL (>40); LDL Cholesterol Calculated 152 mg/dL (<100); Potassium 3.9 mmol/L (3.3-5.1); Sodium 141 mmol/L (135-145); Total Protein 7.3 g/dL (6.5-8.0); Triglycerides 214 mg/dL (<150)
[2023-08-06 12:14] LABS: TSH reflex Free T4 2.57 uIU/mL (0.32-4.0)
[2023-08-06 15:08] LABS: Vitamin B12 283 pg/mL (200-900)
[2023-08-06 15:32] LABS: Estimated Average Glucose 146 mg/dL; Hemoglobin A1c % 6.7 % (<6.0)
[2023-08-10 15:08] LABS: Vitamin B6 5.6 ng/mL (2.1-21.7)
[2023-08-10 15:49] LABS: Vitamin D 25-OH, D2 <4 ng/mL; Vitamin D 25-OH, D3 36 ng/mL; Vitamin D 25-OH, Total 36 ng/mL (30-100)
== END 2023-08-06 07:16 | disposition home or self-care (01) ==
LOC: HO.HMGCLDS 07:15
PROVIDERS: Visit Provider Nurse Practitioner Primary Care
DX: Z13.21 Encounter for screening for nutritional disorder (principal); Z13.89 Encounter for screening for other disorder; Z13.0 Encounter for screening for diseases of the blood and blood-forming organs and certain disorders involving the immune mechanism; Z13.1 Encounter for screening for diabetes mellitus; Z13.29 Encounter for screening for other suspected endocrine disorder; Z12.5 Encounter for screening for malignant neoplasm of prostate; Z13.220 Encounter for screening for lipoid disorders; Z91.89 Other specified personal risk factors, not elsewhere classified
CPT/HCPCS: 36415; 80053; 80061; 81003; 82306; 82607; 83036; 84153; 84207; 84443; 85025

== ENCOUNTER 2023-08-22 12:30 | Outpatient (AMB) | payer MEDICARE, SELFPAY ==
--- NOTE | 2023-08-22 12:45 | MHC.PC.OV ---
Vital Signs 08/22/23 12:47 Height 5 ft 6 in Weight 176 lb BMI 28.4 BP 118/70 Blood Pressure Location Lt brachial Position Sitting Pulse 72 Pulse Source Pulse Oximeter Pulse Oximetry (%) 98 Oxygen Delivery Method Room Air Intake Visit Reasons: follow labs results Intake Note: pt is here for follow up results Allergies vancomycin Allergy (Severe, Verified 08/22/23 13:00) Facial Swelling Medication List - Last Reconciled 08/22/23 by TRACY Mahan aspirin 81 mg PO DAILY Saccharomyces boulardii (Digest Probiotic (S.boulardii)) 250 mg PO BID Tobacco use date assessed: 08/01/23 Fall risk assessment: No Falls in past year Last assessed Fall Risk: 08/22/23 Dental Screening Dental Screen Date: 08/22/23 Did you have a dental visit in the last 12 months?: Yes Did you have a dental problem in the last 6 months where you did not have access to dental care?: No Was dental information given to patient?: Patient has dentist HPI HPI Comments History of Present Illness Details Patient is a 67-year-old male here for follow-up based on labs. Patient's most recent lab draw demonstrated A1c of 6.7, and elevated cholesterol levels. Patient is denying medication intervention for diabetes at this time, states that he wants to try to get A1c levels down with improved diet and exercise. Patient reluctant to take any medication. Has been educated on the importance of keeping blood sugar levels down. Patient states he understands. He is denying symptoms of polyuria polydipsia. Patient has strong family history of heart disease, hyperlipidemia, will refer for echocardiogram. Denies chest pain, shortness a breath, dizziness, numbness, nausea, vomiting, diarrhea. Patient has agreed to start statin Patient has chief complaint of right shoulder pain acute on chronic. Does have a distant history of right rotator cuff repair. Patient states that he has developed shoulder pain over the past couple months that has gotten progressively worse. Does not take any medication for relief at this time. Denies any tingling or numbness. Will obtain x-ray. [facility] Medical History Diverticulitis Surgical History H/O rotator cuff surgery History of resection of large bowel Family History (Updated 08/22/23 @ 13:20 by TRACY Mahan) Brother Myocardial infarction Social History Housing: House Patient Tobacco Use Status: Former Tobacco user Quit Date: 10/2007 Tobacco use type: Cigarette e-Cigarette/Vaping Use: Never Used Second Hand Smoke Exposure: No Current occupational status: retired Current occupation: right hand dominant Cognitive needs: No Hearing needs: No Vision needs: No Questionnaire PHQ-9 Over the last 2 weeks, how often have you been bothered by any of the following problems? 97269 - PHQ-9 Billing: Patient declined-do not bill Source: Developed by Drs. Fredy Barrios, Karely Mora, Oskar Roca and colleagues, with an educational david from [employer]. Thrive Questionnaire Date Thrive assessed: 08/01/23 LAMONTE-7 AMB Questionnaire LAMONTE-7 Date LAMONTE - 7 assessed: 08/01/23 Source: Developed by Drs. Fredy Barrios, Karely Mora, Oskar Roca and colleagues, with an educational david from [employer]. LAMONTE-7 Assessment Billing LAMONTE-7 Assessment Tool: pt declined-do not bill Review of Systems Const Details: Constitutional : No Weight loss, No Fever, No Chills, No Fatigue, No Malaise ENT/Mouth : No sore throat, No Rhinorrhea Eyes: No Eye Pain, No Swelling, No Redness Cardiovascular : No Chest Pain, No SOB, No Dyspnea on Exertion, No Orthopnea, No Edema, No Palpitations Respiratory : No Cough, No Sputum, No Wheezing Gastrointestinal : No Nausea, No Vomiting, No Diarrhea, No Constipation, No abdominal Pain, No Hematochezia, No Melena Genitourinary : No Dysuria, No Urinary Frequency, No Hematuria, Musculoskeletal : Admits right shoulder pain. Skin : No Skin Lesions, No rash Neuro : No Weakness, No Numbness, No Dizziness, No Headache Psych : No Anxiety/Panic, No Depression Heme/Lymph: No Bruising, No Bleeding,No Lymphadenopathy Endocrine : No Polyuria, No Polydipsia All other systems reviewed and are negative Physical exam (Primary Care) Vital Signs: Last Vital Signs Pulse 72 08/22/23 12:47 BP 118/70 08/22/23 12:47 Pulse Ox 98 08/22/23 12:47 Oxygen Delivery Method Room Air 08/22/23 12:47 Care Plan Goal for BP management: Vital signs reviewed stable. BMI result Body Mass Index 28.4 Tobacco/Smoking Status: Tobacco use Status Tobacco use date assessed 08/01/23 08/22/23 12:45 Patient Tobacco Use Status Former Tobacco user 08/22/23 12:45 Tobacco use type Cigarette 08/22/23 12:45 e-Cigarette/Vaping Use Never Used 08/22/23 12:45 Thrive Assessment: Date of Thrive Assessment Date Thrive assessed 08/01/23 08/22/23 12:45 Const Other: Appearance: Alert.? Oriented X3.? No acute distress.? Head: Normocephalic, atraumatic, no step-offs or deformities Eyes: Pupils equal, round and reactive to light.? Neck: Normal inspection.? Neck supple.? CVS: Normal heart rate and rhythm.? Pulses normal.?Faint systolic murmur. Respiratory: No respiratory distress.? Breath sounds normal.? Abdomen: Soft and nontender.? Skin: Skin warm and dry.? Normal skin color.? Normal skin turgor.? Neuro: Oriented X 3.? No motor deficit.? No sensory deficit. CN 2-12 intact Results Reviewed Results Reviewed: Sodium 141 135-145 mmol/L Potassium 3.9 3.3-5.1 mmol/L CL 108 96-108 mmol/L CO2 26 22-29 mmol/L Gap 11 L 12-20 BUN 11 9-16 mg/dL Creat 0.75 0.5-1.4 mg/dL EGFR > 60 NOTE: For -[place] individuals, multiply the result by 1.210. Chronic Kidney Disease: Estimated GFR < 60 mL/min/1.73m2 Severe Kidney Disease: Estimated GFR < 15 mL/min/1.73m2 Glucose, Random 151 H 60-115 mg/dL CA 9.3 8.4-10.2 mg/dL Total Bili 0.6 0.0-1.0 mg/dL AST (GOT) 16 5-37 U/L ALT (GPT) 19 0-40 U/L Protein, Total 7.3 6.5-8.0 g/dL Alb 4.1 3.5-5.0 g/dL Triglyceride 214 H <150 mg/dL Desirable Triglyceride: less than 150 mg/dL Borderline High Triglyceride 150-199 mg/dL High Triglyceride: 200-499 mg/dL Very High Triglyceride: greater than or equal to 5OO mg/dL Cholesterol 223 H <200 mg/dL Desirable Cholesterol: less than 200 mg/dL Borderline High Cholesterol: 200-239 mg/dL High Cholesterol: greater than 239 mg/dL LDL Calculated 152 H <100 mg/dL Desirable LDL: less than 100 mg/dL Near Optimal/Above Optimal LDL: 110-129 mg/dL Borderline High LDL: 130-159 mg/dL High LDL: 160-189 mg/dL Very High LDL: greater than or equal to 190 mg/dL HDL 29 L >40 mg/dL Desirable HDL: greater than 40 mg/dL Note: This HDL assay may give artificially low results in patients with liver disease. Alk Phos 76 39-117 U/L TSH 2.57 0.32-4.0 uIU/mL Assessment and Plan Assessment & Plan (1) Right shoulder pain: Comment: Will obtain x-ray of right shoulder. Code(s): M25.511 - Pain in right shoulder Qualifiers: Chronicity: acute Qualified Code(s): M25.511 - Pain in right shoulder (2) Hyperlipidemia: Comment: Patient will be started on Crestor. Does have history of muscle aches from unknown statin. Patient instructed to call office if he has any unwanted side effects of medication. Code(s): E78.5 - Hyperlipidemia, unspecified Qualifiers: Hyperlipidemia type: unspecified Qualified Code(s): E78.5 - Hyperlipidemia, unspecified (3) Diabetes type 2, controlled: Comment: Patient newly diagnosed type 2 diabetic. Patient is up-to-date with eye exam. Patient declining medication intervention at this time. Will redraw A1c in 3 months. Code(s): E11.9 - Type 2 diabetes mellitus without complications Qualifiers: Diabetes mellitus complication status: without complication Diabetes mellitus assisted insulin use: without assisted use Qualified Code(s): E11.9 - Type 2 diabetes mellitus without complications Plan: Take your medications as prescribed. If you were prescribed antibiotics today, it is important that you take your medication to their entirety, do not skip any doses, do not finish them early. Follow-up with your primary care provider this week. Return to the emergency department with new or worsening symptoms. Such as fevers, chills, chest pain, shortness of breath, nausea, vomiting, dizziness, headache, vision changes, lethargy In case of emergency call 911 Plan Three-month follow-up Review Patient declined Pneumococcal Vaccine: 08/22/23 Coding Level of Care Code Est Pt Level 4 (97432) Diagnoses Acute pain of right shoulder M25.511 Chronicity: acute Hyperlipidemia, unspecified hyperlipidemia type E78.5 Hyperlipidemia type: unspecified Controlled type 2 diabetes mellitus without complication, without long-term current use of insulin E11.9 Diabetes mellitus complication status: without complication Diabetes mellitus assisted insulin use: without assisted use Time Spent (min) 35
[2023-08-22 12:47] VITALS: BP 118/70; PULSE 72; O2SAT 98; BMI 28.4
== END 2023-08-22 14:04 | disposition home or self-care (01) ==
PROVIDERS: PCP Internal Medicine; Visit Provider Nurse Practitioner Primary Care
DX: M25.511 Pain in right shoulder (principal); E78.5 Hyperlipidemia, unspecified; E11.9 Type 2 diabetes mellitus without complications
CPT/HCPCS: 99214

== ENCOUNTER 2023-08-22 13:24 | Outpatient (REF) | payer MEDICARE, SELFPAY ==
--- NOTE | ~2023-08-22 | XR_ITS ---
EXAMINATION: XR SHOULDER, RIGHT CLINICAL INFORMATION: Pain. COMPARISON: None available. TECHNIQUE: AP external rotation, Grashey, scapular Y, and axillary views of the right shoulder. FINDINGS: Bony alignment and mineralization are normal. The glenohumeral joint is intact. The acromioclavicular and coracoclavicular intervals are normal. There is mild to moderate osteoarthritic change of the acromioclavicular joint. No fracture or dislocation is seen. There is no soft tissue calcification or foreign body. No right pneumothorax is seen. XR/XR shoulder RT min 2V IMPRESSION: 1. There is mild to moderate osteoarthritic change of the right acromioclavicular joint. 2. No fracture or dislocation is seen.
== END 2023-08-22 13:25 | disposition home or self-care (01) ==
LOC: HO.HMGCX 13:24
PROVIDERS: PCP Nurse Practitioner Primary Care; Visit Provider Nurse Practitioner Primary Care
DX: M25.511 Pain in right shoulder (principal)
CPT/HCPCS: 73030

== ENCOUNTER → 2023-09-10 13:56 | Outpatient (REF) | payer MEDICARE, SELFPAY ==
--- NOTE | 2023-09-10 14:01 | CA_ITS ---
Transthoracic Echocardiogram Amended Patient (Last, First, Middle): John Jasso F Gender: Male Date of : 1955 Age: 67 Procedure Date: 09/10/2023 Procedure Type: Transthoracic Echocardiogram Location: OP Height: 167.64 cm Weight: 79.38 kg BSA: 1.89 m2 Heart Rate: bpm BP: 124 / 63 mmHg Digital Advertising Analyst: JAILENE Referring MD: Keith MOLINA Symptoms: E78.5 - Hyperlipidemia, unspecified Study Quality: Adequate with contrast ECG Rhythm: Sinus Conclusions: - The left ventricular systolic function is normal. The calculated ejection fraction is 60% by biplane method. - No obvious valvular pathology seen on this study. - Small plaque is seen in the sino tubular ridge. Findings Procedure Information Contrast agent, definity, is being given per protocol without apparent complications. Left Ventricle Normal left ventricular cavity size. The left ventricular systolic function is normal. The calculated ejection fraction is 60% by biplane method. There is no evidence of regional wall motion abnormalities. Diastolic function is normal for age. Mild focal hypertrophy of the basal septum. Right Ventricle Mildly increased right ventricular cavity size. There is normal right ventricular systolic function. Atria Both atria are normal in size. Aortic Valve There is a normal trileaflet aortic valve. There is no aortic valve stenosis. There is no aortic valve regurgitation. Mitral Valve The mitral valve appears normal. There is trace mitral valve regurgitation. There is no mitral valve stenosis. Pulmonic Valve The pulmonic valve is likely normal. Tricuspid Valve Normal tricuspid valve structure. There is trace tricuspid valve regurgitation. There is no evidence of pulmonary hypertension. Great Vessels The asc aorta is normal in size. Small plaque is seen in the sino tubular ridge. Venous The inferior vena cava is normal in size and collapses greater than 50% with inspiration. Pericardium/Pleural There is no evidence of pericardial effusion. Prior Study Comparison No prior study available for comparison. Recommendations, Care & Conclusions No obvious valvular pathology seen on this study. Measurements 2D Linear Measurements IVSd: 1.32 0.6-0.9/0.6-1.0 cm LVIDd: 3.62 3.9-5.3/4.2-5.9 cm LVIDd Index: 1.92 2.4-3.2/2.2-3.1 cm/m2 LVIDs: 2.27 2.0-3.6 cm LVPWd: 1.06 0.7-1.1 cm LA Diam: 3.10 2.7-3.8/3.0-4.0 cm LAIDs Index: 1.64 1.5-2.3 cm/m2 LV Mass: 175.30 67-162/88-224 g LV Mass Index: 92.75 43-95/49-115 g/m2 LVOT Diam: 2.10 3.0+(-)1.3 cm 2D Volumes LA Vol: 24.70 2D Systolic Function EF 4C: 56.60 >55% EF 2C: 62.90 >55% EF BiP: 59.70 >55% Mitral Valve MV Pk E: 0.60 MV PK A: 0.51 MV Decel Time: 218.00 E/A: 1.20 E'Lateral: 7.40 E'Medial: 7.62 E/E' Med: 7.90 E/E' Lat: 8.10 PHT: 64.00 MVA PHT: 3.44 Decel [place]: 2.75 Aortic Valve AoV Pk Thee: 1.09 AoV Mn Thee: 0.81 AoV VTI: 0.27 AoV Pk Grad: 5.00 Aov Mn Grad: 3.00 NICOLE Cont.VTI: 2.56 LVOT LVOT Pk Thee: 0.93 LVOT Mn Thee: 0.63 LVOT VTI: 0.20 LVOT Pk Grad: 3.00 LVOT Mn Grad: 2.00 LVOT Diam: 2.10 LVOT Area: 3.46 Diastolic Function MV Pk E: 0.60 MV Pk A: 0.51 E/A: 1.20 E'Medial: 7.62 E/E' Med: 7.90 E' Laterial: 7.40 E/E' Lat: 8.10 Right Ventricle TAPSE (mm): 21.70 TVS' Thee: 11.90 Tricuspid Valve TR Pk Thee: 2.01 TR Pk Grad: 16.00 RA Press: 3.00 RVSP: 19.00 Great Vessels Aorta Sinus of Valsalva: 4.06 2.0-3.[address] [place]: 2.40 1.7-3.4 cm Ao Asc: 3.20 2.1-3.4 cm Updated in Other Vendor System with Status of Final Deion Mederos MD electronically signed on 09/11/2023 11:58:23 AM with status of Final
== END ==
LOC: HO.CARD 13:56
PROVIDERS: PCP Nurse Practitioner Primary Care; Visit Provider Nurse Practitioner Primary Care
DX: E11.9 Type 2 diabetes mellitus without complications (principal); E78.5 Hyperlipidemia, unspecified
CPT/HCPCS: 93306; Q9957

== ENCOUNTER → 2023-09-10 14:01 | Outpatient (BNV) | payer MEDICARE, SELFPAY | PROVIDERS: PCP Nurse Practitioner Primary Care; Visit Provider Internal Medicine | DX: I42.2 Other hypertrophic cardiomyopathy (principal) | CPT/HCPCS: 93306 ==

== ENCOUNTER 2023-10-06 23:03 | Emergency (ER) | payer MEDICARE, SELFPAY ==
[2023-10-06 23:31] VITALS: BP 130/75; PULSE 78; RESP 18; TEMP 37.2; O2SAT 98; BMI 28.1
--- NOTE | 2023-10-07 01:29 | ED.EYEPROB ---
HPI - Eye Problem General Chief complaint: Eye Problems Stated complaint: Something in eye Time Seen by Provider: 10/07/23 01:18 Source: patient Mode of arrival: ambulatory Limitations: no limitations History of Present Illness HPI Narrative: Patient was putting together place keep felt some metal /wood silver went to his left eye watch several times after arrival patient is started feeling better no loss of vision Related Data Home Medications ?Medication ?Instructions ?Recorded ?Confirmed aspirin 81 mg tablet,delayed 81 mg PO DAILY 09/11/21 08/22/23 release Saccharomyces boulardii 250 mg 250 mg PO BID 08/01/23 08/22/23 capsule (Digest Probiotic (S.boulardii)) Previous Rx's ?Medication ?Instructions ?Recorded rosuvastatin 5 mg tablet 5 mg PO DAILY #90 tabs 08/22/23 Allergies Allergy/AdvReac Type Severity Reaction Status Date / Time vancomycin Allergy Severe Facial Verified 10/06/23 23:35 Swelling Review of Systems Review of Systems: Yes all other systems are reviewed and are negative [facility] Past Medical History Medical History Diverticulitis Surgical History H/O rotator cuff surgery History of resection of large bowel Family History Family History Brother Myocardial infarction Social History Social History Housing: House Patient Tobacco Use Status: Former Tobacco user Quit Date: 10/2007 Tobacco use type: Cigarette e-Cigarette/Vaping Use: Never Used Second Hand Smoke Exposure: No Advance Directives: No Advance Directives Information Provided: Yes Do you have a plan to hurt others: No Plan Current occupational status: retired Current occupation: right hand dominant Cognitive needs: No Hearing needs: No Vision needs: No Physical Exam Vital Signs: Vital Signs: Last Vital Signs Temp 98.9 F 10/06/23 23:31 Pulse 78 10/06/23 23:31 Resp 18 10/06/23 23:31 BP 130/75 10/06/23 23:31 Pulse Ox 98 10/06/23 23:31 O2 Del Method Room Air 10/06/23 23:31 BMI result Body Mass Index 28.1 Eyes: General: appearance normal, both eyes and all related structures Visual Winkler: normal visual winkler by confrontation Alignment and Position: alignment normal Periorbital: periorbital findings normal Eyelids: Yes eyelids normal Conjunctivae: conjunctivae normal Sclerae: sclerae normal Corneas: corneas normal, fluorescein used and other (No foreign body seen no corneal abrasion) Pupils: Equal, round and reactive pupils present EOM: EOMs intact bilaterally Direct Ophthalmoscopy: no photophobia and anterior chamber normal Neuro: Cranial nerves: Yes Equal, round and reactive pupils present Medical Decision Making Medical Decision Making MDM Narrative: Left eye was washed using saline no foreign body was seen no corneal abrasion on fluorescein examination likely it washed away when patient washed his eye using water at home Discharge Plan Discharge Clinical Impression: Foreign body of left eye Patient Disposition: Home, Self-Care Instructions: Eye Foreign Body (ED) Additional Instructions: No foreign body was seen in the left eye no corneal abrasion seen Likely foreign body was removed when you rinsed your eye Prescriptions: No Action aspirin 81 mg Tablet,Delayed Release (Dr/Ec) 81 mg PO DAILY Saccharomyces boulardii [Digest Probiotic (S.boulardii)] 250 mg capsule 250 mg PO BID rosuvastatin 5 mg tablet 5 mg PO DAILY Qty: 90 0RF Print Language: New Zealander
--- NOTE | 2023-10-07 02:29 | PC.NURSE ---
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
[2023-10-07] MEDS: Fluorescein Sodium STRIP 1 STRIP EYE-LEFT (02:30)
[2023-10-07] MEDS: Tetracaine HCl/PF 0.5% Oph Sol 4 ML DROPS 1 DROP EYE-LEFT (02:30)
[2023-10-07 02:31] VITALS: BP 130/75; PULSE 78; RESP 18; TEMP 37.2; O2SAT 98
== END 2023-10-07 02:32 | disposition home or self-care (01) ==
PROVIDERS: Emergency Provider Internal Medicine; PCP Nurse Practitioner Primary Care
DX: T15.92XA Foreign body on external eye, part unspecified, left eye, initial encounter (principal); W44.F9XA Other object of natural or organic material, entering into or through a natural orifice, initial encounter; Y93.89 Activity, other specified; Y92.007 Garden or yard of unspecified non-institutional (private) residence as the place of occurrence of the external cause; Y99.9 Unspecified external cause status; Z79.82 Long term (current) use of aspirin; Z79.899 Other long term (current) drug therapy; Z87.891 Personal history of nicotine dependence
CPT/HCPCS: 99282; 99283

== ENCOUNTER 2023-10-31 08:49 | Outpatient (AMB) | payer MEDICARE, SELFPAY ==
--- NOTE | 2023-10-31 08:52 | MHC.PC.OV ---
Vital Signs 10/31/23 08:53 Height 5 ft 6 in Weight 174 lb BMI 28.1 BP 124/72 Blood Pressure Location Lt brachial Position Sitting Pulse 57 Pulse Source Pulse Oximeter Pulse Oximetry (%) 98 Oxygen Delivery Method Room Air Intake Visit Reasons: Annual PE Intake Note: pt here for annual PE. Colonoscopy due. Appt 12/11/23 for consult Allergies vancomycin Allergy (Severe, Verified 10/31/23 09:11) Facial Swelling Medication List - Last Reconciled 10/31/23 by TRACY Mahan aspirin 81 mg PO DAILY rosuvastatin 5 mg PO DAILY Saccharomyces boulardii (Digest Probiotic (S.boulardii)) 250 mg PO BID Tobacco use date assessed: 10/31/23 Fall risk assessment: No Falls in past year Dental Screening Dental Screen Date: 10/31/23 Did you have a dental visit in the last 12 months?: Yes Did you have a dental problem in the last 6 months where you did not have access to dental care?: No Was dental information given to patient?: Patient has dentist HPI HPI Comments History of Present Illness Details Patient is a 68-year-old male in today for a physical exam. Patient has colonoscopy screening schedule for next month. Patient is due for Prevnar 20 vaccine-will offer at the appointment today. Patient does not know Tdap status. Will obtain from previous provider. PSA was up-to-date drawn 3 months prior to this appointment value was normal He has a past medical history significant for: Hyperlipidemia-was started on rosuvastatin 3 months prior will redraw lipid panel today. Diabetes type 2-patient controlled with diet however A1c 6.7 a previous appointment. Patient is declining metformin at this time he would like to see what his next A1c level is. Has been educated that metformin would be beneficial to his treatment planned patient states he understands. Patient has establish care with [facility]. Will order microalbumin today. Will refer to [place] [facility]. Disc degeneration at [id number] sees pain management through [facility] gets cortisone injections every 4-5 months with good effect. Bursitis right elbow-controlled patient has not had flare-up in several months. Utilizes compression sleeve with good effect. [facility] Medical History (Updated 10/31/23 @ 09:43 by TRACY Mahan) Diverticulitis Surgical History H/O rotator cuff surgery History of resection of large bowel Family History Brother Myocardial infarction Social History Housing: House Patient Tobacco Use Status: Former Tobacco user Tobacco use type: Cigarette e-Cigarette/Vaping Use: Never Used Second Hand Smoke Exposure: No service: No Current occupational status: retired Cognitive needs: No Hearing needs: No Vision needs: No Questionnaire PHQ-9 Over the last 2 weeks, how often have you been bothered by any of the following problems? 1. Little interest or pleasure in doing things: not at all 2. Feeling down, depressed, or hopeless: not at all 3. Trouble falling or staying asleep, or sleeping too much: not at all 4. Feeling tired or having little energy: not at all 5. Poor appetite or overeating: not at all 6. Feeling bad about yourself - or that you are a failure or have let yourself or your family down: not at all 7. Trouble concentrating on things, such as reading the newspaper or watching television: not at all 8. Moving or speaking so slowly that other people could have noticed. Or the opposite - being so fidgety or restless that you have been moving around a lot more than usual: not at all 9. Thoughts that you would be better off or of hurting yourself in some way: not at all Total score: 0 Depression Screening Interpretation: Negative Depression Screening Done: Yes 17083 - PHQ-9 Billing: Yes Source: Developed by Drs. Fredy Barrios, Karely Mora, Oskar Roca and colleagues, with an educational david from [employer]. Thrive Questionnaire Date Thrive assessed: 10/31/23 I am a: Patient What is your living situation today?: I have a steady place to live Within the past 12 months, did the food you bought not last and you didn't have the money to get more?: Never true Within the past 12 months, did you worry whether your food would run out before you got money to buy more?: Never true Do you have trouble paying for medicines?: No Do you have trouble getting transportation to medical appointments?: No Do you have trouble paying your heating and electricity bill?: No Do you have trouble taking care of your child, family member or friend?: No Do you have trouble with day-to-day activities such as bathing, preparing meals, shopping, managing finances, etc.?: No Are you currently unemployed and looking for a job?: No Are you interested in more education?: No Please select the resources that you would like help with: None Currently or been in a relationship where the following occur: no concerns reported THRIVE Score: 0 AUDIT C Alcohol Use Questionnaire (AUDIT-C) 1. How often do you have a drink containing alcohol?: Never Total Score: 0 LAMONTE-7 AMB Questionnaire LAMONTE-7 Date LAMONTE - 7 assessed: 10/31/23 Feeling nervous, anxious, or on edge: 0 = Not at all Not being able to stop or control worryin = Not at all Worrying too much about different things: 0 = Not at all Trouble relaxin = Not at all Being so restless that it is hard to sit still: 0 = Not at all Becoming easily annoyed or irritable: 0 = Not at all Feeling afraid as if something awful might happen: 0 = Not at all Total LAMONTE-7 score (0-4 normal; 5-9 mild; 10-14 moderate; 15-21 severe): 0 Source: Developed by Drs. Fredy Barrios, Karely Mora, Oskar Roca and colleagues, with an educational david from [employer]. LAMONTE-7 Assessment Billing LAMONTE-7 Assessment Tool: LAMONTE-7 Assessment 78152 Review of Systems Const All systems reviewed & are unremarkable except as noted in HPI and below Physical exam (Primary Care) Vital Signs: Last Vital Signs Pulse 57 10/31/23 08:53 BP 124/72 10/31/23 08:53 Pulse Ox 98 10/31/23 08:53 Oxygen Delivery Method Room Air 10/31/23 08:53 Care Plan Goal for BP management: Blood pressure is controlled. BMI result Body Mass Index 28.1 Tobacco/Smoking Status: Tobacco use Status Tobacco use date assessed 10/31/23 10/31/23 08:55 Patient Tobacco Use Status Former Tobacco user 10/31/23 08:55 Tobacco use type Cigarette 10/31/23 08:55 e-Cigarette/Vaping Use Never Used 10/31/23 08:55 PHQ-9: PHQ-9 Score PHQ-9: Total score 0 10/31/23 09:02 Depression Screening Interpretation: Negative Thrive Assessment: Date of Thrive Assessment Date Thrive assessed 10/31/23 10/31/23 09:02 Currently or been in a relationship where the following occur: no concerns reported Advance Care Planning discussion: Exists, not on file Forms completed: MOLST Time spent: 1-15 minutes, not on file Actual minutes spent: 17 Const Other: Appearance: Alert.? Oriented X3.? No acute distress.? Head: Normocephalic. Eyes: Pupils equal, round and reactive to light.?Sclera white. ENT: Pharynx normal.?TM intact and pearly persaud. Neck: Normal inspection.? Neck supple.?Full ROM. CVS: Normal heart rate and rhythm.? Pulses normal.? Respiratory: No respiratory distress.? Breath sounds normal.? Abdomen: Soft and nontender.? Skin: Small dime-size scaling patch on right forearm. No discharge or signs of infection. Extremities: No lower extremity edema.? No calf ttp. 5/5 strength to bilateral upper and lower extremities Back: No midline tenderness, no C-spine tenderness, full range of motion, no CVA tenderness bilaterally Neuro: Oriented X 3.? No motor deficit.? No sensory deficit. CN 2-12 intact Immunizations pneumoc 20-sergio conj-dip cr(PF) 0.5 mL IM syringe Performing Provider: TRACY Mahan Performing Location: [facility] Administered by: Tyrel Ruano CMA on 10/31/23 09:11 Dose Route Admin Location Dispensed Lot Number Expiration Date NDC [employer] Experience Strategy 0.5 mL IM Left Deltoid 0.5 mL [id number] 10/23/24 6735-4653-78 [employer] VIS Given Date VIS Provided VIS Publication Date 10/31/23 Single Vaccine 21 Eligibility Eligibility Date Funding Source Not VFC Eligible 10/31/23 Private Assessment and Plan Assessment & Plan (1) Encounter for physical examination: Comment: Will redraw labs today including lipid panel and microalbumin. Patient is up-to-date with PSA. It values were normal. Patient filled out a MOLST form today. Will upload to file. He will be sending us previous information from his last provider in regard to Tdap but believes he got within the past 3-4 years. Code(s): Z00.00 - Encounter for general adult medical examination without abnormal findings (2) Diabetes type 2, controlled: Comment: Patient newly diagnosed type 2 diabetic. Patient is up-to-date with eye exam. Patient declining medication intervention at this time. Will redraw A1c today. Patient will get referral to Podiatry. Will draw a microalbumin. Code(s): E11.9 - Type 2 diabetes mellitus without complications Qualifiers: Diabetes mellitus terminal makeup operator insulin use: without detention use Diabetes mellitus complication status: without complication Qualified Code(s): E11.9 - Type 2 diabetes mellitus without complications (3) Hyperlipidemia: Comment: Utilizing rosuvastatin. No complaints of leg pain or joint aches. Will draw lipid panel Code(s): E78.5 - Hyperlipidemia, unspecified Qualifiers: Hyperlipidemia type: unspecified Qualified Code(s): E78.5 - Hyperlipidemia, unspecified (4) Atopic eczema: Comment: Will order triamcinolone. Code(s): L20.9 - Atopic dermatitis, unspecified Qualifiers: Atopic dermatitis type: unspecified Qualified Code(s): L20.9 - Atopic dermatitis, unspecified (5) Olecranon bursitis of right elbow: Comment: Controlled patient utilizes right compression sleeve. As needed. Code(s): M70.21 - Olecranon bursitis, right elbow (6) Disc degeneration, lumbar: Comment: Patient gets cortisone shots at [facility] every 4-5 months. With good effect Code(s): M51.36 - Other intervertebral disc degeneration, lumbar region Plan: Will draw labs Plan Patient to follow-up in 3 months Orders: Orders Pneumococcal 20 Immunization Today Z23 - Encounter for immunization Lipid Panel Today E78.5 - Hyperlipidemia, unspecified Complete Blood Count Auto Diff Today Z91.89 - Other specified personal risk factors, not elsewhere classified Comprehensive Met. Panel Today Z91.89 - Other specified personal risk factors, not elsewhere classified Hemoglobin A1c Today E11.9 - Type 2 diabetes mellitus without complications Microalbumin, Random (w Creat) Today E11.9 - Type 2 diabetes mellitus without complications Referrals Podiatry Referral E11.9 - Type 2 diabetes mellitus without complications Medications: New triamcinolone acetonide 0.1% 1 appl topical DAILY 15 grams 0RF Coding Level of Care Code Est Pt Prev Care >65y(03196) Diagnoses Encounter for physical examination Z00.00 Controlled type 2 diabetes mellitus without complication, without long-term current use of insulin E11.9 Diabetes mellitus terminal makeup operator insulin use: without detention use Diabetes mellitus complication status: without complication Hyperlipidemia, unspecified hyperlipidemia type E78.5 Hyperlipidemia type: unspecified Atopic dermatitis, unspecified type L20.9 Atopic dermatitis type: unspecified Olecranon bursitis of right elbow M70.21 Disc degeneration, lumbar M51.36 Additional Codes LAMONTE-7 Assessment Billing - LAMONTE-7 Assessment Tool: LAMONTE-7 Assessment 05639 ([id number]) Vital Signs *Quality* - Advance Care Planning discussion: Exists, not on file ([id number]) Vital Signs *Quality* - Time spent: 1-15 minutes, not on file ([id number]) Time Spent (min) 31
[2023-10-31 08:53] VITALS: BP 124/72; PULSE 57; O2SAT 98; BMI 28.1
== END 2023-10-31 09:45 | disposition home or self-care (01) ==
PROVIDERS: PCP Internal Medicine; Visit Provider Nurse Practitioner Primary Care
DX: Z23 Encounter for immunization (principal)
CPT/HCPCS: 1124F; 90471; 90677; 99397

== ENCOUNTER 2023-11-28 08:14 | Outpatient (AMB) | payer MEDICARE, SELFPAY ==
[2023-11-28 09:04] VITALS: BP 122/72; PULSE 78; TEMP 36.7; O2SAT 98; BMI 28.1
--- NOTE | 2023-11-28 09:04 | AM.OFFWIN_ITS ---
Intake Vital Signs 11/28/23 09:04 Height 5 ft 6 in Weight 174 lb BMI 28.1 BP 122/72 Blood Pressure Location Lt brachial Position Sitting Pulse 78 Pulse Source Pulse Oximeter Temp 98.1 F Temp Source Oral Pulse Oximetry (%) 98 Intake Visit Reasons: EP lft leg bump/bite 2wks Intake Note: pt is here for left leg bump, bite 2 weeks ago Patient Tobacco Use Status: Former Tobacco user Allergies vancomycin Allergy (Severe, Verified 11/28/23 09:04) Facial Swelling Do you need a note to return to daycare/school/sports/work: No HPI EP lft leg bump/bite 2wks HPI Details This is a 68-year-old male patient who presents to the walk-in clinic today for a small itchy/painful bump on his left lower/inner leg. Noticed this about 2 weeks ago. He states that he initially thought it was a bug bite, since it has been quite itchy. It is raised and has a scabbed-appearance now. [facility] Medical History Diverticulitis Surgical History H/O rotator cuff surgery History of resection of large bowel Family History Brother Myocardial infarction Social History Housing: House Patient Tobacco Use Status: Former Tobacco user Tobacco use type: Cigarette e-Cigarette/Vaping Use: Never Used Second Hand Smoke Exposure: No service: No Current occupational status: retired Cognitive needs: No Hearing needs: No Vision needs: No Review of Systems Const All systems reviewed & are unremarkable except as noted in HPI and below Physical Exam Vital Signs: Last Vital Signs Temp 98.1 F 11/28/23 09:04 Pulse 78 11/28/23 09:04 BP 122/72 11/28/23 09:04 Pulse Ox 98 11/28/23 09:04 BMI result Body Mass Index 28.1 Const General: cooperative, healthy appearing, comfortable and no acute distress HEENT Head: Yes normal to inspection Resp Effort & Inspection: normal respiratory effort Skin Other: small raised lesion lower/medial aspect of left leg. Approx 1/2cm in diameter, with darkened pigment and scabbed appearance. Mildly tender to palpation. No surrounding erythema. No drainage. Extrem General: Yes capillary refill normal and Yes no clubbing, cyanosis or edema Psych Appearance: grossly normal Mental Status: mental status grossly normal Speech and movement: Normal speech and movement present Assessment & Plan Assessment & Plan (1) Skin lesion of left lower extremity: Code(s): L98.9 - Disorder of the skin and subcutaneous tissue, unspecified Plan: I am going to refer him to dermatology given that appearance of lesion is concerning for basal cell carcinoma. In the meantime, I will start him on a topical cream. We reviewed use of this and plan for derm referral. He agrees to plan. Certainly if this worsens or new symptoms develop prior to derm appt., he can return to clinic or see PCP for f/u. Orders: Referrals Dermatology Referral L98.9 - Disorder of the skin and subcutaneous tissue, unspecified Medications: New hydrocortisone 1% Apply to affected area on left lower leg twice a day. 1 appl topical BID PRN 28.35 grams 1RF skin irritation L98.9 - Disorder of the skin and subcutaneous tissue, unspecified Coding Level of Care Code Est Pt Level 4 (17608) Diagnoses Skin lesion of left lower extremity L98.9
== END 2023-11-28 09:43 | disposition home or self-care (01) ==
PROVIDERS: PCP Nurse Practitioner Primary Care; Visit Provider Nurse Practitioner Family
DX: L98.9 Disorder of the skin and subcutaneous tissue, unspecified (principal)
CPT/HCPCS: 99214

== ENCOUNTER 2024-01-16 14:37 | Outpatient (AMB) | payer MEDICARE, SELFPAY ==
[2024-01-16 14:40] VITALS: BP 136/83; PULSE 66; BMI 28.0
--- NOTE | 2024-01-16 14:40 | MHC.OFFVIS ---
Vital Signs 01/16/24 14:40 Height 5 ft 6 in Weight 173 lb 11.588 oz BMI 28.0 BP 136/83 Blood Pressure Location Lt brachial Position Sitting Pulse 66 Intake Visit Reasons: Colonoscopy screening Intake Note: Patient in office today as a new patient for colonoscopy screening. CC: Per patient last colonoscopy done at [facility] about 5 years ago and he was told he has diverticulosis. Health Information Coder Required: No Allergies vancomycin Allergy (Severe, Verified 01/16/24 14:44) Facial Swelling HPI HPI Colonoscopy screening: Details: 68-year-old male here for preprocedural meeting to discuss a screening colonoscopy. He is referred by Rhonda Roa. PMX High cholesterol Diabetes Atopic eczema Lumbar degenerative disc disease History of diverticulitis Nephrolithiasis * SURGICAL HISTORY Rotator cuff surgery bilateral Large bowel resection * ALLERGIES Vancomycin - anaphylaxis * [employer] LABS: Laboratory Tests 08/06/23 07:26 WBC 5.7 Hgb 14.3 Hct 42.0 Plt Count 262 Estimated GFR > 60 Hemoglobin A1c % 6.7 H Total Bilirubin 0.6 AST 16 ALT 19 Alkaline Phosphatase 76 TSH 2.57 TODAY'S VISIT He has has several colonoscopies at [facility] but prior to [facility] database, it was > 5 years ago. He has dtr with polyps, but no known [facility] crc or polyps on his side. He has a hx of TICS with a partial colectomy at [facility] for this. There are no prior problems with anesthesia or sedation. He denies any cardiac or respiratory problems. No ID problems. NO known FHX crc or polyps. [facility] Medical History FH: ovarian cancer Screening for colon cancer Encounter for physical examination Diverticulitis Surgical History Hx of inguinal hernia surgery H/O elbow surgery H/O rotator cuff surgery History of resection of large bowel Family History Brother Heart attack Prostate cancer Brother Colon cancer Bone cancer Mother Heart attack Father Dementia Social History Housing: House Patient Tobacco Use Status: Former Tobacco user Tobacco use type: Cigarette e-Cigarette/Vaping Use: Never Used Second Hand Smoke Exposure: No service: No Current occupational status: retired Cognitive needs: No Hearing needs: No Vision needs: No Review of Systems Const Denies fatigue, Denies fever(s), Denies night sweats, Denies poor appetite and Denies weight loss ENT Reports Normal hearing present, Denies dental pain, Denies dysphagia, Denies hearing loss, Denies mouth pain, Denies odynophagia, Denies throat swelling, Denies tongue swelling and Reports other (Dentition adequate) Card Reports no additional complaints Resp Reports no additional complaints GI Details: Denies abdominal pain, Denies melena, Denies bloating, Denies hematochezia, Denies constipation, Denies GI cramping, Denies dysphagia, Denies excessive flatus, Denies early satiety, Denies heartburn, Denies diarrhea, Denies nausea, Denies odynophagia, Denies vomiting and Denies hematemesis Skin/Breast Denies pruritus, Denies lesions, Denies rash and Denies jaundice Neuro Reports Normal hearing present and Denies Abnormal speech present Endo Denies fatigue Aller/Immun Denies throat swelling and Denies tongue swelling Physical Exam Vital Signs: Last Vital Signs Pulse 66 01/16/24 14:40 BP 136/83 01/16/24 14:40 BMI result Body Mass Index 28.0 Const General: cooperative, no acute distress, well developed and well groomed Nutritional Appearance: average body habitus and well nourished Orientation/consciousness: oriented to person, oriented to place and oriented to time Limitations: No language barrier HEENT Head: Yes normocephalic and Yes atraumatic Eyes General: appearance normal, both eyes and all related structures Pupils: Equal, round and reactive pupils present Neck Neck: Yes normal visual inspection and Yes no lymphadenopathy Thyroid: Thyroid normal Resp Effort & Inspection: normal respiratory effort and able to speak in complete sentences Auscultation: clear to auscultation bilaterally Cardio Rate: regular rate Rhythm: regular rhythm Heart sounds: Normal, physiologic split S2 sound present Peripheral pulses: radial pulses present and posterior tibial pulses present GI Inspection: No distended, Yes Abdominal panniculus present and Yes obesity Palpation (GI): Soft to palpation, nontender, no guarding, not rigid and No hepatosplenomegaly present Percussion: Yes normal to percussion Auscultation: normal bowel sounds Rectal Exam - Male: Yes deferred Abdomen image: 1. surgical scar Skin General skin exam: no rashes or lesions noted, turgor normal, skin not dry, no jaundice, No spider nevi and no striae Rashes: no rashes Nails: normal Neuro General: oriented to person, oriented to place and oriented to time Cranial nerves: Yes Equal, round and reactive pupils present and Yes Normal hearing present Speech: No Abnormal speech present Extrem General: Yes normal to inspection, No clubbing, No cyanosis and No edema Psych Appearance: grossly normal and well kempt Mental Status: mental status grossly normal Speech and movement: Normal speech and movement present Affect: normal affect Attitude: cooperative Thought process: Normal thought process present and not confabulating Thought content: Normal thought content present Insight: Limited insight present (Psych) Judgement: Limited judgement present (Psych) Assessment & Plan Assessment & Plan (1) Encounter for pre-operative examination: Code(s): Z01.818 - Encounter for other preprocedural examination Plan He has has several colonoscopies at [facility] but prior to [facility] database, it was > 5 years ago. He has dtr with polyps, but no known [facility] crc or polyps on his side. He has a hx of TICS with a partial colectomy at [facility] for this. There are no prior problems with anesthesia or sedation. He denies any cardiac or respiratory problems. No ID problems. NO known FHX crc or polyps. Orders: Orders Colonoscopy - GI Use Only 01/16/24 Z01.818 - Encounter for other preprocedural examination Medications: New sodium,potassium,mag sulfates 17.5-3.13-1.6 gram (Suprep Bowel Prep Kit) 480 mL orally; FOR COLONOSCOPY PREP 354 mL 0RF Coding Level of Care Code New Pt Level 3 (20271) Diagnoses Encounter for pre-operative examination Z01.818
== END 2024-01-16 15:11 | disposition home or self-care (01) ==
PROVIDERS: PCP Nurse Practitioner Primary Care; Visit Provider Nurse Practitioner
DX: Z01.818 Encounter for other preprocedural examination (principal); Z12.11 Encounter for screening for malignant neoplasm of colon; Z83.719 Family history of colon polyps, unspecified
CPT/HCPCS: 99024

== ENCOUNTER → 2024-01-16 14:37 | Outpatient (BNVA) | payer MEDICARE, SELFPAY | PROVIDERS: PCP Nurse Practitioner Primary Care; Visit Provider Nurse Practitioner | DX: Z01.818 Encounter for other preprocedural examination (principal); K57.90 Diverticulosis of intestine, part unspecified, without perforation or abscess without bleeding | CPT/HCPCS: 99212 ==

== ENCOUNTER 2024-03-01 10:02 | Outpatient (REF) | payer MEDICARE, SELFPAY ==
[2024-03-01 13:12] LABS: MANUAL DIFF FLAG NO
[2024-03-01 13:37] LABS: Basophils Percent Auto 0.4 % (0-2); Eosinophils Absolute Auto 0.1 X10*3/uL (0.0-0.4); Eosinophils Percent Auto 0.5 % (0-4); Hematocrit 40.8 % (42.0-52.0); Imm Gran Abs Auto 0.05 X10*3/uL (0.00-0.03); Imm Gran Pct Auto 0.4 % (0.0-0.4); Lymphocytes Absolute Auto 1.7 X10*3/uL (1.2-4.9); Lymphocytes Percent Auto 14.7 % (20-40); Mean Corpuscular HGB Conc 34.3 g/dl (31.0-36.0); Mean Corpuscular Hemoglobin 32.8 pg (27.0-33.0); Mean Corpuscular Volume 95.6 fL (80.0-98.0); Mean Platelet Volume 10.4 fL (9.4-12.4); Monocytes Percent Auto 8.6 % (2-11); Neutrophils Absolute Auto 8.5 x10*3/uL (2.0-8.3); Neutrophils Percent Auto 75.4 % (45-73); Platelet Count 242 X10*3/uL (160-400); Red Blood Count 4.27 X10*6/uL (4.60-5.80); Red Cell Distribution Width 13.9 % (11.0-16.0); White Blood Count 11.3 X10*3/uL (4.8-10.8)
[2024-03-01 13:50] LABS: Estimated Average Glucose 146 mg/dL; Hemoglobin A1C 165.7923 umol/L; Hemoglobin A1c % 6.7 % (<6.0); Total Hemoglobin (HGBA1C) 3329.4281 umol/L
[2024-03-01 14:04] LABS: Alanine Aminotransferase 20 U/L (0-40); Alkaline Phosphatase 77 U/L (39-117); Anion Gap 9 (12-20); Aspartate Amino Transferase 18 U/L (5-37); Bilirubin Total 0.7 mg/dL (0.0-1.0); Blood Urea Nitrogen 9 mg/dL (9-16); Calcium 9.1 mg/dL (8.4-10.2); Carbon Dioxide 25 mmol/L (22-29); Chloride 109 mmol/L (96-108); Cholesterol 203 mg/dL (<200); Estimated Glomerular Filt Rate > 60; Glucose Random 129 mg/dL (60-115); HDL Cholesterol 37 mg/dL (>40); LDL Cholesterol Calculated 140 mg/dL (<100); Potassium 3.9 mmol/L (3.3-5.1); Sodium 139 mmol/L (135-145); Total Protein 7.2 g/dL (6.5-8.0); Triglycerides 134 mg/dL (<150)
[2024-03-01 14:05] LABS: Creatinine Urine 107.34 mg/dL; Microalbum/Creatinine Ratio Ur 11.1 ug/mg cr (<30)
== END 2024-03-01 10:03 | disposition home or self-care (01) ==
LOC: HO.HMGCLDS 10:02
PROVIDERS: PCP Nurse Practitioner Family; Visit Provider Nurse Practitioner Primary Care
DX: Z91.89 Other specified personal risk factors, not elsewhere classified (principal); E11.9 Type 2 diabetes mellitus without complications; E78.5 Hyperlipidemia, unspecified
CPT/HCPCS: 36415; 80053; 80061; 82043; 82570; 83036; 85025

== ENCOUNTER 2024-03-03 09:03 | Outpatient (AMB) | payer MEDICARE, SELFPAY ==
[2024-03-03 09:05] VITALS: BP 122/74; PULSE 76; O2SAT 96; BMI 28.6
--- NOTE | 2024-03-03 09:05 | MHC.PC.OV ---
Vital Signs 03/03/24 09:05 Height 5 ft 6 in Weight 177 lb 8 oz BMI 28.6 BP 122/74 Blood Pressure Location Lt brachial Position Sitting Pulse 76 Pulse Source Pulse Oximeter Pulse Oximetry (%) 96 Oxygen Delivery Method Room Air Intake Visit Reasons: Transfer from [facility]/ [facility] [place] Intake Note: pt is here to [facility], transfer from [facility], 4 month follow up Patient Registration Manager Required: No Accompanied by: Self / Same As Patient Allergies vancomycin Allergy (Severe, Verified 03/03/24 09:26) Facial Swelling Medication List - Last Reconciled 03/03/24 by NASH Vazquez aspirin 81 mg PO DAILY Saccharomyces boulardii (Digest Probiotic (S.boulardii)) 250 mg PO BID Tobacco use date assessed: 10/31/23 Fall risk assessment: No Falls in past year Last assessed Fall Risk: 03/03/24 Dental Screening Dental Screen Date: 10/31/23 HPI Transfer from [facility]/ [facility] [place] HPI Details Pt is a diabetic. Last A1C was 6.7. Microalbumin is up to date. Denies polyuria, polydipsia, and neuropathy. Pt denies any signs and symptoms of hypoglycemia and does know how to correct it. Eye exam is up to date. Pt has tried a statin which caused joint pains, he would not like to restart a statin. Will start zetia 10mg. Pt's WBC count was elevated. He reports feeling run down recently but is feeling better today. Pt is not a smoker. Will repeat CBC. Denies fever, chills, chest pain, and shortness of breath. Colon screen is scheduled. Refuses all vaccines. [facility] Medical History FH: ovarian cancer Screening for colon cancer Encounter for physical examination Diverticulitis Surgical History Hx of inguinal hernia surgery H/O elbow surgery H/O rotator cuff surgery History of resection of large bowel Family History Brother Heart attack Prostate cancer Brother Colon cancer Bone cancer Mother Heart attack Father Dementia Social History Housing: House Patient Tobacco Use Status: Former Tobacco user Tobacco use type: Cigarette e-Cigarette/Vaping Use: Never Used Second Hand Smoke Exposure: No service: No Current occupational status: retired Cognitive needs: No Hearing needs: No Vision needs: No Questionnaire PHQ-9 Over the last 2 weeks, how often have you been bothered by any of the following problems? 1. Little interest or pleasure in doing things: not at all 2. Feeling down, depressed, or hopeless: not at all 3. Trouble falling or staying asleep, or sleeping too much: not at all 4. Feeling tired or having little energy: not at all 5. Poor appetite or overeating: not at all 6. Feeling bad about yourself - or that you are a failure or have let yourself or your family down: not at all 7. Trouble concentrating on things, such as reading the newspaper or watching television: not at all 8. Moving or speaking so slowly that other people could have noticed. Or the opposite - being so fidgety or restless that you have been moving around a lot more than usual: not at all 9. Thoughts that you would be better off or of hurting yourself in some way: not at all Total score: 0 Depression Screening Interpretation: Negative Depression Screening Done: Yes 38359 - PHQ-9 Billing: Yes Source: Developed by Drs. Fredy Barrios, Karely Mora, Oskar Roca and colleagues, with an educational david from [employer]. Thrive Questionnaire Date Thrive assessed: 03/03/24 I am a: Patient What is your living situation today?: I have a steady place to live Within the past 12 months, did the food you bought not last and you didn't have the money to get more?: Never true Within the past 12 months, did you worry whether your food would run out before you got money to buy more?: Never true Do you have trouble paying for medicines?: I choose not to answer this question Do you have trouble getting transportation to medical appointments?: No Do you have trouble paying your heating and electricity bill?: I choose not to answer this question Do you have trouble taking care of your child, family member or friend?: No Do you have trouble with day-to-day activities such as bathing, preparing meals, shopping, managing finances, etc.?: No Are you interested in more education?: No Please select the resources that you would like help with: None Currently or been in a relationship where the following occur: I choose not to answer THRIVE Score: 0 AUDIT C Alcohol Use Questionnaire (AUDIT-C) 1. How often do you have a drink containing alcohol?: Never 3. How often do you have six or more drinks on one occasion?: Never Total Score: 0 Score Reviewed/Action Taken: Yes LAMONTE-7 AMB Questionnaire LAMONTE-7 Date LAMONTE - 7 assessed: 03/03/24 Feeling nervous, anxious, or on edge: 0 = Not at all Not being able to stop or control worryin = Not at all Worrying too much about different things: 0 = Not at all Trouble relaxin = Not at all Being so restless that it is hard to sit still: 0 = Not at all Becoming easily annoyed or irritable: 0 = Not at all Feeling afraid as if something awful might happen: 0 = Not at all Total LAMONTE-7 score (0-4 normal; 5-9 mild; 10-14 moderate; 15-21 severe): 0 Source: Developed by Drs. Fredy Barrios, Karely Mora, Oskar Roca and colleagues, with an educational david from [employer]. LAMONTE-7 Assessment Billing LAMONTE-7 Assessment Tool: LAMONTE-7 Assessment 05673 Review of Systems Const Reports as per HPI Physical exam (Primary Care) Vital Signs: Last Vital Signs Pulse 76 03/03/24 09:05 BP 122/74 03/03/24 09:05 Pulse Ox 96 03/03/24 09:05 Oxygen Delivery Method Room Air 03/03/24 09:05 BMI result Body Mass Index 28.6 Tobacco/Smoking Status: Tobacco use Status Tobacco use date assessed 10/31/23 03/03/24 09:07 Patient Tobacco Use Status Former Tobacco user 03/03/24 09:07 Tobacco use type Cigarette 03/03/24 09:07 e-Cigarette/Vaping Use Never Used 03/03/24 09:07 PHQ-9: PHQ-9 Score PHQ-9: Total score 0 03/03/24 09:18 Depression Screening Interpretation: Negative Thrive Assessment: Date of Thrive Assessment Date Thrive assessed 03/03/24 03/03/24 09:07 Currently or been in a relationship where the following occur: I choose not to answer Const General: cooperative Orientation/consciousness: patient oriented x3 Resp Effort & Inspection: normal respiratory effort Auscultation: clear to auscultation bilaterally Cardio Rate: regular rate Rhythm: regular rhythm Heart sounds: S1 normal heart sound present and S2 normal heart sound present Neuro General: patient oriented x3 Extrem Other: bilat feet: + sensation with use of monofilament, feet intact Psych Appearance: grossly normal Mental Status: mental status grossly normal Speech and movement: Normal speech and movement present Affect: normal affect Attitude: cooperative Thought process: Normal thought process present Thought content: Normal thought content present Insight: Good insight present (Psych) Judgement: Good judgement present (Psych) Coding Level of Care Code New Pt Level 3 (05604) Diagnoses Elevated white blood cell count D72.829 Controlled type 2 diabetes mellitus without complication, without long-term current use of insulin E11.9 Diabetes mellitus residential insulin use: without residential use Diabetes mellitus complication status: without complication Additional Codes LAMONTE-7 Assessment Billing - LAMONTE-7 Assessment Tool: LAMONTE-7 Assessment 62149 ([id number]) Assessment & Plan Assessment & Plan (1) Elevated white blood cell count: Code(s): D72.829 - Elevated white blood cell count, unspecified Category: Medical Plan: Repeat CBC ordered (2) Diabetes type 2, controlled: Code(s): E11.9 - Type 2 diabetes mellitus without complications Category: Medical Qualifiers: 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 Scribed for NASH Phan by alethea Martel scribe, on 03/03/2024 at 09:20 EST. Orders: Orders Complete Blood Count Auto Diff Today D72.829 - Elevated white blood cell count, unspecified Medications: New ezetimibe 10 mg PO DAILY 90 days 90 tabs 0RF
== END 2024-03-03 09:40 | disposition home or self-care (01) ==
PROVIDERS: PCP Nurse Practitioner Primary Care; Visit Provider Nurse Practitioner Family
DX: D72.829 Elevated white blood cell count, unspecified (principal); E11.9 Type 2 diabetes mellitus without complications

== ENCOUNTER → 2024-03-03 09:03 | Outpatient (BNVA) | payer MEDICARE, SELFPAY | PROVIDERS: PCP Nurse Practitioner Primary Care; Visit Provider Nurse Practitioner Family | DX: E11.9 Type 2 diabetes mellitus without complications (principal); D72.829 Elevated white blood cell count, unspecified | CPT/HCPCS: 96127; 99202 ==

== ENCOUNTER 2024-03-03 09:41 | Outpatient (REF) | payer MEDICARE, SELFPAY ==
[2024-03-03 13:29] LABS: MANUAL DIFF FLAG NO
[2024-03-03 13:58] LABS: Basophils Absolute Auto 0.1 X10*3/uL (0.0-0.2); Basophils Percent Auto 0.4 % (0-2); Eosinophils Absolute Auto 0.1 X10*3/uL (0.0-0.4); Eosinophils Percent Auto 0.6 % (0-4); Hematocrit 40.5 % (42.0-52.0); Hemoglobin 13.6 g/dl (14.0-18.0); Imm Gran Abs Auto 0.06 X10*3/uL (0.00-0.03); Imm Gran Pct Auto 0.5 % (0.0-0.4); Lymphocytes Absolute Auto 1.6 X10*3/uL (1.2-4.9); Lymphocytes Percent Auto 13.8 % (20-40); Mean Corpuscular HGB Conc 33.6 g/dl (31.0-36.0); Mean Corpuscular Hemoglobin 32.7 pg (27.0-33.0); Mean Corpuscular Volume 97.4 fL (80.0-98.0); Mean Platelet Volume 10.7 fL (9.4-12.4); Monocytes Percent Auto 8.6 % (2-11); Neutrophils Absolute Auto 8.9 x10*3/uL (2.0-8.3); Neutrophils Percent Auto 76.1 % (45-73); Platelet Count 250 X10*3/uL (160-400); Red Blood Count 4.16 X10*6/uL (4.60-5.80); Red Cell Distribution Width 14.1 % (11.0-16.0); White Blood Count 11.7 X10*3/uL (4.8-10.8)
== END 2024-03-03 09:42 | disposition home or self-care (01) ==
LOC: HO.HMGCLDS 09:41
PROVIDERS: PCP Nurse Practitioner Family; Visit Provider Nurse Practitioner Family
DX: D72.829 Elevated white blood cell count, unspecified (principal)
CPT/HCPCS: 36415; 85025

== ENCOUNTER 2024-03-05 10:24 | Outpatient (REF) | payer MEDICARE, SELFPAY ==
--- NOTE | ~2024-03-05 | XR_ITS ---
EXAMINATION: XR CHEST 2 VIEWS CLINICAL INFORMATION: Elevated white blood cell count, unspecified D72.829. Elevated white blood cell count. COMPARISON: None available TECHNIQUE: 2 views of the chest were obtained. FINDINGS: No significant abnormality is noted involving the heart, lungs, mediastinum, bony thorax or soft tissues. XR/XR chest 2V IMPRESSION: Unremarkable examination. Electronically signed by: Jaspal Junior MD 05/06/2024 09:08 AM MARCOS
[2024-03-05 13:18] LABS: Appearance Urine Clear; Color Urine Yellow; Glucose Urine UA Negative (Negative); Leukocyte Esterase Urine Negative (Negative); Nitrite Urine Negative (Negative); PH 5.5 (5.0-9.0); Specific Gravity - Urine 1.015 (1.005-1.025); Urine Blood Negative (Negative); Urine Ketones Negative (Negative); Urine Protein Negative (Neg-Trace)
[2024-03-05 13:20] LABS: MANUAL DIFF FLAG NO
[2024-03-05 13:35] LABS: Basophils Absolute Auto 0.1 X10*3/uL (0.0-0.2); Basophils Percent Auto 0.7 % (0-2); Eosinophils Absolute Auto 0.2 X10*3/uL (0.0-0.4); Eosinophils Percent Auto 2.4 % (0-4); Hematocrit 39.5 % (42.0-52.0); Hemoglobin 13.4 g/dl (14.0-18.0); Imm Gran Abs Auto 0.04 X10*3/uL (0.00-0.03); Imm Gran Pct Auto 0.6 % (0.0-0.4); Lymphocytes Percent Auto 29.5 % (20-40); Mean Corpuscular HGB Conc 33.9 g/dl (31.0-36.0); Mean Corpuscular Hemoglobin 32.5 pg (27.0-33.0); Mean Corpuscular Volume 95.9 fL (80.0-98.0); Mean Platelet Volume 10.2 fL (9.4-12.4); Monocytes Absolute Auto 0.6 X10*3/uL (0.1-1.2); Monocytes Percent Auto 9.5 % (2-11); Neutrophils Absolute Auto 3.8 x10*3/uL (2.0-8.3); Neutrophils Percent Auto 57.3 % (45-73); Platelet Count 295 X10*3/uL (160-400); Red Blood Count 4.12 X10*6/uL (4.60-5.80); Red Cell Distribution Width 13.8 % (11.0-16.0); White Blood Count 6.7 X10*3/uL (4.8-10.8)
== END 2024-03-05 10:25 | disposition home or self-care (01) ==
LOC: HO.HMGCX 10:24
PROVIDERS: PCP Nurse Practitioner Family; Visit Provider Nurse Practitioner Family
DX: D72.829 Elevated white blood cell count, unspecified (principal)
CPT/HCPCS: 36415; 71046; 81003; 85025

== ENCOUNTER 2024-05-07 13:52 | Outpatient (AMB) | payer MEDICARE, SELFPAY ==
--- NOTE | 2024-05-07 14:00 | AM.OFFWIN_ITS ---
Intake Vital Signs 05/07/24 14:01 Weight 177 lb BP 140/80 H Blood Pressure Location Rt brachial Position Sitting Pulse 83 Pulse Source Pulse Oximeter Pulse Oximetry (%) 97 Oxygen Delivery Method Room Air Intake Visit Reasons: EP Rt ankle injury Patient Tobacco Use Status: Former Tobacco user Allergies vancomycin Allergy (Severe, Verified 03/03/24 09:26) Facial Swelling PFSH Medical History FH: ovarian cancer Screening for colon cancer Encounter for physical examination Diverticulitis Surgical History Hx of inguinal hernia surgery H/O elbow surgery H/O rotator cuff surgery History of resection of large bowel Family History Brother Heart attack Prostate cancer Brother Colon cancer Bone cancer Mother Heart attack Father Dementia Social History Housing: House Patient Tobacco Use Status: Former Tobacco user Tobacco use type: Cigarette e-Cigarette/Vaping Use: Never Used Second Hand Smoke Exposure: No service: No Current occupational status: retired Cognitive needs: No Hearing needs: No Vision needs: No Coding
[2024-05-07 14:01] VITALS: BP 140/80; PULSE 83; O2SAT 97
--- NOTE | 2024-05-07 14:01 | A.OFFVIS_ITS ---
Vital Signs 05/07/24 14:01 Weight 177 lb BP 140/80 H Blood Pressure Location Rt brachial Position Sitting Pulse 83 Pulse Source Pulse Oximeter Pulse Oximetry (%) 97 Oxygen Delivery Method Room Air Intake Visit Reasons: EP Rt ankle injury Allergies vancomycin Allergy (Severe, Verified 03/03/24 09:26) Facial Swelling HPI Comments Details: This is a 68-year-old male with a past medical history of hyperlipidemia presenting for evaluation of right ankle pain. Patient states that approximately 12:00 p.m. yesterday he was wearing work boots when he stepped over a tree in the [place] and twisted his right ankle causing him to fall to the ground. Patient denies any head injury or loss of consciousness and was able to eventually stand up independently on his own. Patient has not taken any medication for treatment of his discomfort and is complaining of pain in his right lateral ankle. [facility] Medical History FH: ovarian cancer Screening for colon cancer Encounter for physical examination Diverticulitis Surgical History Hx of inguinal hernia surgery H/O elbow surgery H/O rotator cuff surgery History of resection of large bowel Family History Brother Heart attack Prostate cancer Brother Colon cancer Bone cancer Mother Heart attack Father Dementia Social History Housing: House Patient Tobacco Use Status: Former Tobacco user Tobacco use type: Cigarette e-Cigarette/Vaping Use: Never Used Second Hand Smoke Exposure: No service: No Current occupational status: retired Cognitive needs: No Hearing needs: No Vision needs: No Review of Systems Const All systems reviewed & are unremarkable except as noted in HPI and below Reports as per HPI, Denies chills, Denies fatigue, Denies fever(s), Denies frequent falls and Denies headache(s) Eyes Reports no additional complaints ENT Reports no additional complaints and Denies headache(s) Card Reports no additional complaints Resp Reports no additional complaints GI Reports no additional complaints Reports no additional complaints Musc Reports as per HPI, Reports arthralgias (Right ankle) and Reports joint swelling Skin/Breast Reports system reviewed and no additional complaints, except as documented Neuro Reports no additional complaints, Denies frequent falls and Denies headache(s) Psych Reports no additional complaints Endo Reports no additional complaints and Denies fatigue Yaron/Lymph Reports no additional complaints Aller/Immun Reports no additional complaints Physical Exam Vital Signs: Last Vital Signs Pulse 83 05/07/24 14:01 BP 140/80 H 05/07/24 14:01 Pulse Ox 97 05/07/24 14:01 Oxygen Delivery Method Room Air 05/07/24 14:01 Const General: cooperative, healthy appearing, comfortable, no acute distress, well developed, alert, awake and Physically active Nutritional Appearance: average body habitus and well nourished Orientation/consciousness: patient oriented x3 Limitations: no limitations Skin Other: Dependent ecchymosis noted on the border of the right foot adjacent to the 1st and 5th metatarsals Neuro General: patient oriented x3 Extrem Right lower extremity: normal capillary refill, edema and ankle Details: abnormal to inspection, tenderness, swelling, abnormal ROM and ecchymosis; no unusual warmth, no abrasions, no lacerations and achilles tendon exam normal; abnormal to inspection (Edema overlying the right lateral malleolus) Psych Appearance: grossly normal Mental Status: mental status grossly normal Insight: Good insight present (Psych) Judgement: Good judgement present (Psych) Results Reviewed Results Reviewed: Imaging reviewed; no acute fracture. Assessment & Plan Assessment & Plan (1) Right ankle sprain: Comment: There are no acute fractures identified on imaging; final read is pending at this time. Code(s): S93.401A - Sprain of unspecified ligament of right ankle, initial encounter Category: Medical Qualifiers: Encounter type: initial encounter Involved ligament of ankle: other ligament Qualified Code(s): S93.491A - Sprain of other ligament of right ankle, initial encounter Plan: Patient is placed in an Aircast and Naprosyn is prescribed. Patient is advised to keep right lower extremity elevated while at rest. Orders: Orders XR ankle RT min 3V Today M25.571 - Pain in right ankle and joints of right foot Medications: New naproxen (Naprosyn) 500 mg PO BID PRN 20 tabs 0RF pain Coding Level of Care Code Est Pt Level 3 (49127) Diagnoses Sprain of other ligament of right ankle, initial encounter S93.491A Encounter type: initial encounter Involved ligament of ankle: other ligament Time Spent (min) 25
== END 2024-05-07 14:29 | disposition home or self-care (01) ==
PROVIDERS: PCP Nurse Practitioner Family; Visit Provider Physician Assistant
DX: S93.491A Sprain of other ligament of right ankle, initial encounter (principal)

== ENCOUNTER 2024-06-08 06:50 | Day surgery (SDC) | payer MEDICARE, SELFPAY ==
[2024-06-04 14:22] VITALS: BMI 28.6
--- NOTE | 2024-06-07 11:58 | P.CONAN_ITS ---
HPI - Anesthesia Eval Consult details Narrative: 68yo M for Colonoscopy PMF Active Problems Active Problems: All Active Problems Right ankle sprain (Acute) Acute right ankle pain (Acute) Disc degeneration, lumbar (Acute) Atopic eczema (Acute) Diabetes type 2, controlled (Acute) Right shoulder pain (Acute) Hyperlipidemia (Acute) Olecranon bursitis of right elbow (Acute) Iliotibial band syndrome (Acute) Past Medical History Medical History (Updated 06/04/24 @ 14:20 by Franchesca Prather RN) Eczema DDD (degenerative disc disease), lumbar Hyperlipidemia Diabetes Diverticulitis Family History Family History Brother Heart attack Prostate cancer Brother Colon cancer Bone cancer Mother Heart attack Father Dementia Family history of problems with anesthesia: No Surgical History Surgical History Hx of inguinal hernia surgery H/O elbow surgery H/O rotator cuff surgery History of resection of large bowel History of Problems with Anesthesia: No Social History Social History Housing: House Patient Tobacco Use Status: Former Tobacco user Tobacco use type: Cigarette e-Cigarette/Vaping Use: Never Used Second Hand Smoke Exposure: No Use of substances other than those prescribed or required for medical reasons: No Are you DNR?: No Advance Directives: No Advance Directives Information Provided: Yes service: No Current occupational status: retired Cognitive needs: No Hearing needs: No Vision needs: No Meds Allergies Allergy/AdvReac Type Severity Reaction Status Date / Time vancomycin Allergy Severe Facial Verified 03/03/24 09:26 Swelling Home Medications ?Medication ?Instructions ?Recorded ?Confirmed ?Last Taken ?Type aspirin 81 mg tablet,delayed 81 mg PO DAILY 09/11/21 03/03/24 09/10/21 History release Saccharomyces boulardii 250 mg 250 mg PO BID 08/01/23 06/04/24 Unknown History capsule (Digest Probiotic (S.boulardii)) Exam Height,Weight and Vital Signs: Height 5 ft 6 in Weight 80.286 kg Assessment and Plan Assessment Anesthesia Assessment: Chart Reviewed Final Anesthetic Review Family History of Problems with Anesthesia: No History of Problems with Anesthesia: No
[2024-06-08 07:43] VITALS: BP 128/70; PULSE 66; RESP 16; TEMP 36.8; O2SAT 98; BMI 27.9
--- NOTE | 2024-06-08 08:16 | P.HPSUR_ITS ---
Pre-Procedural Eval Section A - 24 Hr Update-Section A only Date of Service: 06/08/24 Section B - Complete if H&P > 30 days Chief Complaint: Encounter for screening for malignant neoplasm of Relevant Family History (Specify if Yes): No Relevant Social History: None Present Medications: see Short Stay Collaborative assessment Medical History: Significant History (High cholesterol Diabetes Atopic eczema Lumbar degenerative disc disease History of diverticulitis Nephrolithiasis) History of Previous Operations: Relevant previous surgery/procedure and date(s) (Rotator cuff surgery bilateral Large bowel resection) Allergies: Allergies Allergy/AdvReac Type Severity Reaction Status Date / Time vancomycin Allergy Severe Facial Verified 03/03/24 09:26 Swelling Review of Systems Sugical H&P ROS: Negative: Constitution, Cardiovascular, Respiratory, Neurol ogical, Psychiatric, Hem-Onc, Allergic/Immunologic, Gastrointestinal, Genitourinary, Musculoskeletal, Integumentary, Endocrine and Eyes/Ears/Nose/Throat Exam Surgical H&P Exam: Normal: HEENT, Normal: Heart, Normal: Lungs, Normal: Extremities, Normal: Abdomen, Normal: Skin and Normal: Neurological Plan Diagnosis/Plan: Unchanged I have reviewed the history and physical and performed a pertinent physical examination on my patient. No changes have occurred unless specified. Time Spent With Patient Time: Total time managing care of this patient today ____ minutes.
[2024-06-08] MEDS: Lactated Ringers 1,000 ML 100 ML IVCONT (08:21)
--- NOTE | 2024-06-08 08:38 | P.OPN-COLO_ITS ---
Colonoscopy Operative Note Operative Note Date of Service: 06/08/24 Narrative: Operative Information Procedure Description: Colonoscopy Indication: screening Anesthesia: MAC COLONOSCOPY Instrument: Olympus variable stiffness pediatric scope 190L Colonoscopy Monitoring: Vital signs and clinical assessment, continuous EKG monitoring, Pulse oximetry, Carbon Dioxide monitoring and blood pressure monitoring were done throughout the procedure. Colon withdrawal time was 9 minutes. Procedure: The patient was placed in the left lateral decubitis position and pre-procedure medications were administered. After a digital rectal examination of the ano-rectum, the video colonoscope was inserted into the rectum and advanced through the colon to the cecum/TI. The colonoscope was slowly withdrawn in a retrograde panoramic fashion and the colon mucosa was carefully examined including a retroflexed view of the rectum. Findings and interventions are described below. Procedure Difficulty: easy Findings: Terminal Ileum-normal Cecum:normal Ascending Colon: mild diverticulosis Transverse Colon -normal Descending Colon:normal Sigmoid Colon: severe diverticulosis with wide mouthed tics - scar noted from prior anastomosis Rectum: Retroflexion with small internal hemorrhoids seen, grade I, 8-9 mm sessile polyp removed with cold snare Anorectum - normal Intervention: cold snare Colon preparation: [place] Bowel Preparation Scale Right colon; 2 Transverse colon: 2 Left colon; 2 (0 = Unprepared colon segment with mucosa not seen due to solid stool that cannot be cleared. 1 = Portion of mucosa of the colon segment seen, but other areas of the colon segment not well seen due to staining, residual stool and/or opaque liquid. 2 = Minor amount of residual staining, small fragments of stool and/or opaque liquid, but mucosa of colon segment seen well. 3 = Entire mucosa of colon segment seen well with no residual staining, small fragments of stool or opaque liquid) Impression and Post Procedure Diagnosis: diverticulosis colon polyp internal hemorrhoids Plan: High fiber diet leaflet Avoid straining at stool, epsom salts and sitz bath, anusol supps or cream Repeat Colonoscopy in 5 years due to polyp or earlier if clinically indicated Above findings were reviewed with the patient and relevant handouts were provided if indicated.
[2024-06-08 08:44] VITALS: BP 95/56; PULSE 66; RESP 15; TEMP 36.2; O2SAT 95
== END 2024-06-08 09:37 | disposition home or self-care (01) ==
PROVIDERS: PCP Nurse Practitioner Family; Visit Provider Internal Medicine Gastroenterology
PROC: 0DJD8ZZ Inspection of Lower Intestinal Tract, Via Natural or Artificial Opening Endoscopic (ICD-10-PCS; CPT 45378; principal; 2024-06-08 08:30)
DX: Z12.11 Encounter for screening for malignant neoplasm of colon (principal); K62.1 Rectal polyp; K57.30 Diverticulosis of large intestine without perforation or abscess without bleeding; K63.89 Other specified diseases of intestine; K64.0 First degree hemorrhoids; E11.9 Type 2 diabetes mellitus without complications; E78.5 Hyperlipidemia, unspecified; Z87.891 Personal history of nicotine dependence; Z79.82 Long term (current) use of aspirin; Z79.899 Other long term (current) drug therapy
CPT/HCPCS: 45385; 88305; J2003; J2704

== ENCOUNTER → 2024-06-08 06:50 | Outpatient (BNV) | payer MEDICARE, SELFPAY | PROVIDERS: PCP Nurse Practitioner Family; Visit Provider Internal Medicine Gastroenterology | DX: Z12.11 Encounter for screening for malignant neoplasm of colon (principal); K62.1 Rectal polyp; K57.90 Diverticulosis of intestine, part unspecified, without perforation or abscess without bleeding; K64.0 First degree hemorrhoids | CPT/HCPCS: 45385 ==

== ENCOUNTER 2024-09-06 10:05 | Outpatient (AMB) | payer MEDICARE, SELFPAY ==
--- NOTE | 2024-09-06 10:25 | A.OFFPC_ITS ---
Vital Signs 09/06/24 10:27 Height 5 ft 6 in Weight 176 lb BMI 28.4 BP 118/70 Blood Pressure Location Lt brachial Position Sitting Pulse 68 Pulse Source Pulse Oximeter Pulse Oximetry (%) 98 Oxygen Delivery Method Room Air Intake Visit Reasons: 6 month follow up - see comments Allergies vancomycin Allergy (Severe, Verified 03/03/24 09:26) Facial Swelling Medication List - Last Reconciled 09/06/24 by TRACY Vazquez- aspirin 81 mg PO DAILY ezetimibe 10 mg PO DAILY naproxen (Naprosyn) 500 mg PO BID PRN Saccharomyces boulardii (Digest Probiotic (S.boulardii)) 250 mg PO BID Tobacco use date assessed: 10/31/23 Fall risk assessment: No Falls in past year Last assessed Fall Risk: 09/06/24 Dental Screening Dental Screen Date: 09/06/24 Did you have a dental visit in the last 12 months?: Yes Did you have a dental problem in the last 6 months where you did not have access to dental care?: No Was dental information given to patient?: Patient has dentist HPI 6 month follow up - see comments HPI Details Chief Complaint The patient reports elevated blood pressure readings at home and issues with medication adherence due to side effects. History of Present Illness The patient is a 51-year-old female presenting with issues concerning her hypertension management and menopausal symptoms. She has noted elevated blood pressure readings at home due to inconsistent adherence to her amlodipine regimen, linked to adverse effects, including swelling in her extremities. She denies additional symptoms such as chest pain, dizziness, or headaches, which might indicate further complications from hypertension. The swelling has led to modifying her medication dosage. Additionally, she is experiencing challenging menopausal symptoms impacting daily activities, alongside previous surgical needs concerning a pinched nerve and discomforts related to her knee and shoulder. These medical issues align with her history of menopause and its pervasive effects. Social History - Exercise: Patient attempts to exercise three times a week. - Employment: Recently retired due to upcoming surgeries and health issues. - Activities: Previously faced an intens e work routine but not currently working due to health concerns. Health Maintenance Review of Systems - Cardiovascular: Denies chest pain. - Respiratory: Denies shortness of breat h. - Neurological: Denies dizziness, headac hes, or blurred vision. - Musculoskeletal: Notes issues with kne e and shoulder related to surgical history. Physical Exam General: Cooperative, healthy appearing, comfortable, no acute distress and well developed, obese Orientation: Patient oriented x3 Limitations: Limitations due to knee issues and rotator cuff problems Head: Normal to inspection Ears: Hearing grossly normal bilaterally Nose: Normal external nose present Face and sinus: Normal facial exam Eyes: Appearance normal, both eyes and all related structures Neck: Normal visual inspection and Yes full ROM Respiratory: Normal respiratory effort and able to speak in complete sentences. Clear to auscultation bilaterally Cardiovascular: Regular rate and rhythm. Normal S1 and S2 GI: Normal to inspection. Soft to palpation and nontender Skin: No rashes or lesions noted Neuro: Patient oriented x3 Extremities: Swelling in bilateral extremities noted Results Plan 1. 5 mg daily to mitigate the edema side effect while maintaining losartan and initiating hydrochlorothiazide 12.5 mg. It is essential to ensure laboratory monitoring to assess her response and ongoing management needs. Further evaluation of her menopausal symptoms will be addressed via lab tests, with a follow-up scheduled with her OBGYN. Instructions include adherence to the modified medication regimen and planning for lab work to assess blood pressure control and overall wellness.: Discussion Notes I discussed with the patient the management strategy for her hypertension, empha sizing the importance of medication adherence, adjusting amlodipine to 2.5 mg daily, and adding hydrochlorothiazide. The potential benefits of these changes include improved blood pressure control and reduced side effects. We also reviewed upcoming lab work to monitor her condition thoroughly. For menopausal symptoms, I reiterated the need for laboratory evaluation and follow-up with her OBGYN. I reassured her about addressing any menopausal challenges as part of her comprehensive care plan. I encouraged the adherence to lifestyle modifications, including exercise, and stressed adequate follow-up and monitoring. Patient Instructions - Continue taking losartan as prescribed . - Adjust amlodipine dosage to 2.5 mg john ly. - Begin taking hydrochlorothiazide 12.5 mg daily. - Schedule and complete laboratory tests as discussed. - Follow up with your OBGYN for menopaus al symptom evaluation. - Maintain regular exercise routine and monitor symptoms. - Report any new or worsening symptoms p romptly. [facility] Medical History Eczema DDD (degenerative disc disease), lumbar Hyperlipidemia Diabetes Diverticulitis Surgical History Hx of inguinal hernia surgery H/O elbow surgery H/O rotator cuff surgery History of resection of large bowel Family History Brother Heart attack Prostate cancer Brother Colon cancer Bone cancer Mother Heart attack Father Dementia Social History Housing: House Patient Tobacco Use Status: Former Tobacco user Tobacco use type: Cigarette e-Cigarette/Vaping Use: Never Used Second Hand Smoke Exposure: No service: No Current occupational status: retired Cognitive needs: No Hearing needs: No Vision needs: No Questionnaire PHQ-9 Over the last 2 weeks, how often have you been bothered by any of the following problems? 1. Little interest or pleasure in doing things: not at all 2. Feeling down, depressed, or hopeless: not at all 3. Trouble falling or staying asleep, or sleeping too much: not at all 4. Feeling tired or having little energy: not at all 5. Poor appetite or overeating: not at all 6. Feeling bad about yourself - or that you are a failure or have let yourself or your family down: not at all 7. Trouble concentrating on things, such as reading the newspaper or watching television: not at all 8. Moving or speaking so slowly that other people could have noticed. Or the opposite - being so fidgety or restless that you have been moving around a lot more than usual: not at all 9. Thoughts that you would be better off or of hurting yourself in some way: not at all Total score: 0 Depression Screening Interpretation: Negative Depression Screening Done: Yes 92399 - PHQ-9 Billing: Yes Source: Developed by Drs. Fredy Barrios, Karely Mora, Oskar Roca and colleagues, with an educational david from [employer]. Thrive Questionnaire Date Thrive assessed: 09/06/24 I am a: Patient What is your living situation today?: I have a steady place to live Within the past 12 months, did the food you bought not last and you didn't have the money to get more?: I choose not to answer this question Within the past 12 months, did you worry whether your food would run out before you got money to buy more?: I choose not to answer this question Do you have trouble paying for medicines?: I choose not to answer this question Do you have trouble getting transportation to medical appointments?: I choose not to answer this question Do you have trouble paying your heating and electricity bill?: I choose not to answer this question Do you have trouble taking care of your child, family member or friend?: I choose not to answer this question Do you have trouble with day-to-day activities such as bathing, preparing meals, shopping, managing finances, etc.?: I choose not to answer this question Are you currently unemployed and looking for a job?: I choose not to answer this question Are you interested in more education?: No Please select the resources that you would like help with: None Currently or been in a relationship where the following occur: No concerns reported THRIVE Score: 0 AUDIT C Alcohol Use Questionnaire (AUDIT-C) 1. How often do you have a drink containing alcohol?: Never 3. How often do you have six or more drinks on one occasion?: Never Total Score: 0 Score Reviewed/Action Taken: Yes LAMONTE-7 AMB Questionnaire LAMONTE-7 Date LAMONTE - 7 assessed: 09/06/24 Feeling nervous, anxious, or on edge: 0 = Not at all Not being able to stop or control worryin = Not at all Worrying too much about different things: 0 = Not at all Trouble relaxin = Not at all Being so restless that it is hard to sit still: 0 = Not at all Becoming easily annoyed or irritable: 0 = Not at all Feeling afraid as if something awful might happen: 0 = Not at all Total LAMONTE-7 score (0-4 normal; 5-9 mild; 10-14 moderate; 15-21 severe): 0 Source: Developed by Drs. Fredy Barrios, Karely Mora, Oskar Roca and colleagues, with an educational david from [employer]. LAMONTE-7 Assessment Billing LAMONTE-7 Assessment Tool: LAMONTE-7 Assessment 63479 Physical exam (Primary Care) Vital Signs: Last Vital Signs Pulse 68 09/06/24 10:27 BP 118/70 09/06/24 10:27 Pulse Ox 98 09/06/24 10:27 Oxygen Delivery Method Room Air 09/06/24 10:27 BMI result Body Mass Index 28.4 Tobacco/Smoking Status: Tobacco use Status Tobacco use date assessed 10/31/23 09/06/24 10:25 Patient Tobacco Use Status Former Tobacco user 09/06/24 10:25 Tobacco use type Cigarette 09/06/24 10:25 e-Cigarette/Vaping Use Never Used 09/06/24 10:25 PHQ-9: PHQ-9 Score PHQ-9: Total score 0 09/06/24 10:31 Depression Screening Interpretation: Negative Thrive Assessment: Date of Thrive Assessment Date Thrive assessed 09/06/24 09/06/24 10:31 Currently or been in a relationship where the following occur: No concerns reported Coding Level of Care Code Est Pt Level 3 (50883) Diagnoses Controlled type 2 diabetes mellitus without complication, without long-term current use of insulin 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: without assisted use Diabetes mellitus complication status: without complication Screening for prostate cancer Z12.5 Additional Codes LAMONTE-7 Assessment Billing - LAMONTE-7 Assessment Tool: LAMONTE-7 Assessment 28246 ([id number]) PHQ-9 - 83903 - PHQ-9 Billing: Yes ([id number]) Assessment & Plan Assessment & Plan (1) Diabetes type 2, controlled: Code(s): E11.9 - Type 2 diabetes mellitus without complications Category: Medical Qualifiers: Diabetes mellitus assisted insulin use: without assisted use Diabetes mellitus complication status: without complication Qualified Code(s): E11.9 - Type 2 diabetes mellitus without complications (2) Screening for prostate cancer: Code(s): Z12.5 - Encounter for screening for malignant neoplasm of prostate Category: Medical Plan . Orders: Orders Complete Blood Count Auto Diff Today E11.9 - Type 2 diabetes mellitus without complications Comprehensive [place]. Panel Fast Today E11.9 - Type 2 diabetes mellitus without complications TSH reflex Free T4 Today E11.9 - Type 2 diabetes mellitus without complications UA CC w/rflx Micro + Cult Today E11.9 - Type 2 diabetes mellitus without complications Lipid Panel Today E11.9 - Type 2 diabetes mellitus without complications Microalbumin, Random (w Creat) Today E11.9 - Type 2 diabetes mellitus without complications Prostate Specific Antigen Scr Today Z12.5 - Encounter for screening for malignant neoplasm of prostate
[2024-09-06 10:27] VITALS: BP 118/70; PULSE 68; O2SAT 98; BMI 28.4
--- OUTSIDE RECORDS SUMMARY | 2024-09-06 11:25 | XMS_ITS | Patient Health Record ---
[facility] Address [address] [facility] [place] [address] Care Team Providers Care Full Stack Net Developer Name Role Phone Keith Li Primary Care Provider Edilia Heredia Unavailable [phone] Reason For Referral No Information Problems No Known Problems Plan Of Treatment Pending Test Test Name Order Date ,[id number] TENDON SHEATH/LIGAMENT 0 12/08/2015 Insurance Providers Payer Name Payer Address Payer Phone Subscriber Number Group Number Insured Name Patient Relationship to Insured Coverage Start Date Coverage End Date [employer] Medicare Advantage [address] [place] [address] [phone] [id number] John Jasso Self - patient is the insured Medical (General) History Medical History History ICD Code Arthritis Diverticulosis Measles Chicken pox Surgical History Surgery Date(Month/Year) abdominal surgery shoulder surgery elbow sx
--- OUTSIDE RECORDS SUMMARY | 2024-09-06 11:25 | XMS_ITS | Clinical Summary ---
Author Organization [facility] ity Address [address] [place] [address] Care Team Providers Care Director Workforce Management Name Role Phone Unavailable Primary Care Provider Unavailabl e Social History Tobacco Use Types Packs/Day Years Used Date Smoking Tobacco: Never Assessed Sex and Gender Information Value Date Recorded Sex Assigned at Not on file Legal Sex Male 2:55 PM EST Gender Identity Not on file Sexual Orientation Not on file Plan of Treatment Health Maintenance Due Date Last Done Comments DTaP,Tdap,and Td Vaccines (1 - Tdap) 1973 Pneumococcal Vaccine: 50+ Ye ars (1 of 1 - PCV) 2004 Zoster Vaccines (1 of 2) 2004 COVID-19 Vaccine ( - 2023-2 5 season) 2024 Influenza Vaccine (Season Ended) 2025 RSV Immunization Adult Patie nts (1 - 1-dose 75+ series) 2029 HIB Vaccines Aged Out No longer eligi ble based on patient's age to complete this topic HPV Vaccines Aged Out No longer eligi ble based on patient's age to complete this topic Hepatitis A Vaccines Aged Out No long er eligible based on patient's age to complete this topic Hepatitis B Vaccines Aged Out No long er eligible based on patient's age to complete this topic IPV Vaccines Aged Out No longer eligi ble based on patient's age to complete this topic MMR Vaccines Aged Out No longer eligi ble based on patient's age to complete this topic Meningococcal ACWY Vaccine Aged Out N o longer eligible based on patient's age to complete this topic Meningococcal B Vaccine Aged Out No l onger eligible based on patient's age to complete this topic RSV Immunization Patients Un morgan 20 months Aged Out No longer eligible b ased on patient's age to complete this topic Varicella Vaccines Aged Out No longer eligible based on patient's age to complete this topic
== END 2024-09-06 12:00 | disposition home or self-care (01) ==
LOC: HO.HMCC 10:06
PROVIDERS: PCP Nurse Practitioner Primary Care; Visit Provider Nurse Practitioner Family
DX: E11.9 Type 2 diabetes mellitus without complications (principal); Z12.5 Encounter for screening for malignant neoplasm of prostate; Z13.9 Encounter for screening, unspecified

== ENCOUNTER → 2024-09-06 10:05 | Outpatient (BNVA) | payer MEDICARE, SELFPAY | PROVIDERS: PCP Nurse Practitioner Primary Care; Visit Provider Nurse Practitioner Family | DX: E11.9 Type 2 diabetes mellitus without complications (principal); I10 Essential (primary) hypertension; Z87.891 Personal history of nicotine dependence; Z79.899 Other long term (current) drug therapy | CPT/HCPCS: 83036; 96127; 99212 ==

== ENCOUNTER 2024-09-16 09:42 | Outpatient (REF) | payer MEDICARE, SELFPAY ==
--- OUTSIDE RECORDS SUMMARY | 2024-09-16 10:46 | XMS_ITS | Patient Health Record ---
[facility] Address [address] [facility] [place] [address] Care Team Providers Care Local Az Truck Driver Name Role Phone Keith Li Primary Care Provider Edilia Heredia Unavailable [phone] Reason For Referral No Information Problems No Known Problems Plan Of Treatment Pending Test Test Name Order Date ,[id number] TENDON SHEATH/LIGAMENT 0 12/08/2015 Insurance Providers Payer Name Payer Address Payer Phone Subscriber Number Group Number Insured Name Patient Relationship to Insured Coverage Start Date Coverage End Date [employer] Medicare Advantage [address] [place] [address] [phone] [id number] John Jasso Self - patient is the insured Medical (General) History Medical History History ICD Code Arthritis Diverticulosis Measles Chicken pox Surgical History Surgery Date(Month/Year) abdominal surgery shoulder surgery elbow sx
--- OUTSIDE RECORDS SUMMARY | 2024-09-16 10:46 | XMS_ITS | Clinical Summary ---
Author Organization [facility] ity Address [address] [place] [address] Care Team Providers Care Button Grader Name Role Phone Unavailable Primary Care Provider [...]
[2024-09-16 13:08] LABS: MANUAL DIFF FLAG NO
[2024-09-16 13:14] LABS: Appearance Urine Clear; Color Urine Yellow; Glucose Urine UA Negative (Negative); Leukocyte Esterase Urine Negative (Negative); Nitrite Urine Negative (Negative); PH 5.5 (5.0-9.0); Specific Gravity - Urine 1.015 (1.005-1.025); Urine Blood Negative (Negative); Urine Ketones Negative (Negative); Urine Protein Negative (Neg-Trace)
[2024-09-16 13:19] LABS: Basophils Absolute Auto 0.1 X10*3/uL (0.0-0.2); Basophils Percent Auto 0.9 % (0-2); Eosinophils Absolute Auto 0.2 X10*3/uL (0.0-0.4); Eosinophils Percent Auto 2.7 % (0-4); Hematocrit 40.6 % (42.0-52.0); Imm Gran Abs Auto 0.02 X10*3/uL (0.00-0.03); Imm Gran Pct Auto 0.3 % (0.0-0.4); Lymphocytes Absolute Auto 1.9 X10*3/uL (1.2-4.9); Lymphocytes Percent Auto 27.6 % (20-40); Mean Corpuscular HGB Conc 34.5 g/dl (31.0-36.0); Mean Corpuscular Hemoglobin 32.9 pg (27.0-33.0); Mean Corpuscular Volume 95.5 fL (80.0-98.0); Mean Platelet Volume 10.4 fL (9.4-12.4); Monocytes Absolute Auto 0.6 X10*3/uL (0.1-1.2); Monocytes Percent Auto 8.9 % (2-11); Neutrophils Percent Auto 59.6 % (45-73); Platelet Count 271 X10*3/uL (160-400); Red Blood Count 4.25 X10*6/uL (4.60-5.80); Red Cell Distribution Width 14.2 % (11.0-16.0); White Blood Count 6.8 X10*3/uL (4.8-10.8)
[2024-09-16 13:40] LABS: Microalbum/Creatinine Ratio Ur 13.7 ug/mg cr (<30)
[2024-09-16 13:46] LABS: Prostate Specific Antigen Scr 0.52 ng/mL (<0.05-4.0)
[2024-09-16 13:54] LABS: Alanine Aminotransferase 32 U/L (0-40); Albumin Level 4.1 g/dL (3.5-5.0); Alkaline Phosphatase 79 U/L (39-117); Anion Gap 13 (12-20); Aspartate Amino Transferase 25 U/L (5-37); Bilirubin Total 0.4 mg/dL (0.0-1.0); Blood Urea Nitrogen 9 mg/dL (9-16); Calcium 9.2 mg/dL (8.4-10.2); Carbon Dioxide 24 mmol/L (22-29); Chloride 108 mmol/L (96-108); Cholesterol 194 mg/dL (<200); Estimated Glomerular Filt Rate > 60; Glucose Fasting 158 mg/dL (60-99); HDL Cholesterol 34 mg/dL (>40); LDL Cholesterol Calculated 125 mg/dL (<100); Potassium 3.8 mmol/L (3.3-5.1); Sodium 141 mmol/L (135-145); Total Protein 7.4 g/dL (6.5-8.0); Triglycerides 177 mg/dL (<150)
[2024-09-16 13:59] LABS: TSH reflex Free T4 1.84 uIU/mL (0.32-4.0)
== END 2024-09-16 09:43 | disposition home or self-care (01) ==
LOC: HO.HMGCLDS 09:42
PROVIDERS: PCP Nurse Practitioner Family; Visit Provider Nurse Practitioner Family
DX: E11.9 Type 2 diabetes mellitus without complications (principal); Z12.5 Encounter for screening for malignant neoplasm of prostate
CPT/HCPCS: 36415; 80053; 80061; 81003; 82043; 82570; 84153; 84443; 85025

== ENCOUNTER 2024-10-11 14:13 | Outpatient (AMB) | payer MEDICARE, SELFPAY ==
--- OUTSIDE RECORDS SUMMARY | 2024-10-11 14:23 | XMS_ITS | Clinical Summary ---
Author Organization [facility] ity Address [address] [place] [address] Care Team Providers Care Treasury Management Sales Consultant Name Role Phone Unavailable Primary Care Provider [...]
--- OUTSIDE RECORDS SUMMARY | 2024-10-11 14:23 | XMS_ITS | Patient Health Record ---
[facility] Address [address] [facility] [place] [address] Care Team Providers Care Supervisor [employer] Name Role Phone Keith Li Primary Care Provider Edilia Heredia Unavailable [phone] Reason For Referral No Information Problems No Known Problems Plan Of Treatment Pending Test Test Name Order Date ,[id number] TENDON SHEATH/LIGAMENT 0 12/08/2015 Insurance Providers Payer Name Payer Address Payer Phone Subscriber Number Group Number Insured Name Patient Relationship to Insured Coverage Start Date Coverage End Date [employer] [place] Medicare Advantage [address] [place] [address] [phone] [id number] John Jasso Self - patient is the insured Medical (General) History Medical History History ICD Code Arthritis Diverticulosis Measles Chicken pox Surgical History Surgery Date(Month/Year) abdominal surgery shoulder surgery elbow sx
--- NOTE | 2024-10-11 15:04 | AM.OFFWIN_ITS ---
Intake Vital Signs 10/11/24 15:11 Weight 176 lb BP 116/78 Blood Pressure Location Rt brachial Position Sitting Pulse 80 Pulse Source Pulse Oximeter Pulse Oximetry (%) 97 Oxygen Delivery Method Room Air Intake Visit Reasons: EP severe back and hip pain Intake Note: Patient here for severe back pain and right sided hip pain that has been present for a couple of weeks. Patient Tobacco Use Status: Former Tobacco user Allergies vancomycin Allergy (Severe, Verified 10/11/24 15:10) Facial Swelling Do you need a note to return to daycare/school/sports/work: No HPI HPI Comments History of Present Illness Details 69 y/o Male patient who presents to the walk in clinic with c/o Severe back pain and right sided hip pain that has been present for a couple of weeks. Pt had an injury back in 2019 at work and currently follows with [facility] Pain management - she gets Cortisone shots every 4 weeks. [facility] Medical History Eczema DDD (degenerative disc disease), lumbar Hyperlipidemia Diabetes Diverticulitis Surgical History Hx of inguinal hernia surgery H/O elbow surgery H/O rotator cuff surgery History of resection of large bowel Family History Brother Heart attack Prostate cancer Brother Colon cancer Bone cancer Mother Heart attack Father Dementia Social History Housing: House Patient Tobacco Use Status: Former Tobacco user Tobacco use type: Cigarette e-Cigarette/Vaping Use: Never Used Second Hand Smoke Exposure: No service: No Current occupational status: retired Cognitive needs: No Hearing needs: No Vision needs: No Review of Systems Const All systems reviewed & are unremarkable except as noted in HPI and below Physical Exam Vital Signs: Last Vital Signs Pulse 80 10/11/24 15:11 BP 116/78 10/11/24 15:11 Pulse Ox 97 10/11/24 15:11 Oxygen Delivery Method Room Air 10/11/24 15:11 Const General: no acute distress Nutritional Appearance: well nourished Orientation/consciousness: patient oriented x3 Limitations: ambulation with cane Back/Spine/Pelvis Back: back tenderness Thoracic/Lumbar Spine: pain with thoraco-lumbar ROM, thoraco-lumbar spasm on the right greater than left and lumbar spinal tenderness at L5 Neuro General: patient oriented x3 and moves all extremities Assessment & Plan Assessment & Plan (1) Disc degeneration, lumbar: Comment: Patient gets cortisone shots at [facility] every 4-5 months. With good effect Code(s): M51.36 - Other intervertebral disc degeneration, lumbar region Qualifiers: Disc-related pain type: discogenic back pain and lower extremity pain Qualified Code(s): M51.362 - Other intervertebral disc degeneration, lumbar region with discogenic back pain and lower extremity pain Plan: Advised Pt to call Pain management and F/u with them. Ordered Meloxicam, Flexeril and Lidocaine patches. Medications: New cyclobenzaprine 10 mg PO BEDTIME 14 tabs 0RF M51.362 - Other intervertebral disc degeneration, lumbar region with discogenic back pain and lower extremity pain meloxicam 15 mg PO DAILY 2 weeks 14 tabs 0RF M51.362 - Other intervertebral disc degeneration, lumbar region with discogenic back pain and lower extremity pain lidocaine 5% leave on most painful area for up to 12 hrs 1 patch topical DAILY 30 ea 0RF M51.362 - Other intervertebral disc degeneration, lumbar region with discogenic back pain and lower extremity pain Discontinued naproxen (Naprosyn) Discontinued Reason: Patient Completed Course 500 mg PO BID PRN 20 tabs 0RF pain Coding Level of Care Code Est Pt Level 4 (42716) Diagnoses Degeneration of intervertebral disc of lumbar region with discogenic back pain and lower extremity pain M51.362 Disc-related pain type: discogenic back pain and lower extremity pain Time Spent (min) 20
[2024-10-11 15:11] VITALS: BP 116/78; PULSE 80; O2SAT 97
== END 2024-10-11 15:32 | disposition home or self-care (01) ==
PROVIDERS: PCP Nurse Practitioner Family; Visit Provider Nurse Practitioner Family
DX: M51.362 Other intervertebral disc degeneration, lumbar region with discogenic back pain and lower extremity pain (principal)

== ENCOUNTER → 2024-10-11 14:13 | Outpatient (BNVA) | payer MEDICARE, SELFPAY | PROVIDERS: PCP Nurse Practitioner Family; Visit Provider Nurse Practitioner Family | DX: M51.362 Other intervertebral disc degeneration, lumbar region with discogenic back pain and lower extremity pain (principal) | CPT/HCPCS: 99212 ==

== ENCOUNTER 2024-12-07 09:01 | Outpatient (AMB) | payer MEDICARE, SELFPAY ==
--- NOTE | 2024-12-07 09:11 | A.OFFPC_ITS ---
Vital Signs 12/07/24 09:15 Height 5 ft 6 in Weight 179 lb BMI 28.9 BP 138/70 Blood Pressure Location Rt brachial Position Sitting Respiration 18 Pulse 56 Pulse Source Pulse Oximeter Temp 98.2 F Temp Source Oral Pulse Oximetry (%) 98 Oxygen Delivery Method Room Air Intake Visit Reasons: PE-Needs A1c see comments Toe Lining Closer Required: No Accompanied by: Self / Same As Patient Allergies vancomycin Allergy (Severe, Verified 12/07/24 09:45) Facial Swelling Medication List - Last Reconciled 12/07/24 by Bandar Bhakta DIE DESIGNER APPRENTICE- aspirin 81 mg PO DAILY blood sugar diagnostic (FreeStyle Lite Strips) test blood sugar once a day blood-glucose meter (FreeStyle Lite Meter kit) Test blood sugar once a day cyclobenzaprine 10 mg PO BEDTIME ezetimibe 10 mg PO DAILY lancets (FreeStyle Lancets) Test blood sugar once a day lidocaine 5% 1 patch topical DAILY Saccharomyces boulardii (Digest Probiotic (S.boulardii)) 250 mg PO BID semaglutide (Ozempic) 0.25 mg (0.368 mL) subcut QWEEK Tobacco use date assessed: 12/07/24 Fall risk assessment: No Falls in past year Last assessed Fall Risk: 12/07/24 Dental Screening Dental Screen Date: 12/07/24 Did you have a dental visit in the last 12 months?: Yes Did you have a dental problem in the last 6 months where you did not have access to dental care?: No Was dental information given to patient?: Patient has dentist HPI PE-Needs A1c see comments HPI Details History of Present Illness The patient is a 69-year-old male presenting with a follow-up for physical examination and diabetes management. His Hemoglobin A1c level today was 7.3%. He denies any history of pancreatitis or thyroid carcinoma. The patient reports incomplete bladder emptying and excessive dribbling after urination. His brother has a history of terminal prostate cancer. A digital rectal exam revealed an enlarged prostate with a small nodule on the right side. The patient has a tender corn on the plantar aspect of his left foot, specifically at the fifth metatarsophalangeal joint. Health Maintenance - Colonoscopy is up-to-date - PSA is up-to-date - Eye exam is up-to-date Social History Review of Systems - Cardiovascular: Denies chest pain - Respiratory: Denies shortness of breat h - Neurological: Denies neuropathy - Genitourinary: Reports incomplete blad morgan emptying and excessive dribbling after urination - Musculoskeletal: Reports tender corn o n the plantar aspect of the left foot Physical Exam General: Cooperative, healthy appearing, comfortable, no acute distress and well developed Orientation: Patient oriented x3 Limitations: No limitations Head: Normal to inspection Ears: Hearing grossly normal bilaterally Nose: Normal external nose present Face and sinus: Normal facial exam Eyes: Appearance normal, both eyes and all related structures Neck: Normal visual inspection and Yes full ROM Respiratory: Normal respiratory effort and able to speak in complete sentences. Clear to auscultation bilaterally Cardiovascular: Regular rate and rhythm. Very soft S1 and S2 GI: Normal to inspection. Soft to palpation and nontender : Testicles without masses/lesions and no hernias appreciated. Prostate enlarged with a small nodule palpated on the right lobe Skin: No rashes or lesions noted Neuro: Patient oriented x3 Extremities: Normal to inspection. Tender corn to touch on the plantar aspect of the left foot at the fifth MTP joint Results - Labs: Hemoglobin A1c 7.3% Plan The patient will be started on a GLP-1 agonist, specifically Ozempic, to aid in weight loss and diabetes management. I have discussed the potential side effects of this medication with him. Due to the findings of an enlarged prostate with a nodule, I will refer him to urology for further evaluation. For the tender corn on his left foot, I will refer him to podiatry for specialized care. Discussion Notes I discussed with the patient the initiation of a GLP-1 agonist, Ozempic, for his diabetes management and weight loss, including the potential side effects. I also explained the need for a urology referral due to the prostate findings and a podiatry referral for the corn on his foot. Patient Instructions - Start taking the prescribed GLP-1 agon ist, Ozempic, as directed. - Follow up with urology for prostate ev aluation. - Schedule an appointment with podiatry for foot care. [facility] Medical History Eczema DDD (degenerative disc disease), lumbar Hyperlipidemia Diabetes Diverticulitis Surgical History Hx of inguinal hernia surgery H/O elbow surgery H/O rotator cuff surgery History of resection of large bowel Family History Brother Heart attack Prostate cancer Brother Colon cancer Bone cancer Mother Heart attack Father Dementia Social History Housing: House Patient Tobacco Use Status: Former Tobacco user Tobacco use type: Cigarette e-Cigarette/Vaping Use: Never Used Second Hand Smoke Exposure: No service: No Current occupational status: retired Cognitive needs: No Hearing needs: No Vision needs: No Questionnaire Thrive Questionnaire Date Thrive assessed: 08/30/24 I am a: Patient What is your living situation today?: I have a steady place to live Within the past 12 months, did the food you bought not last and you didn't have the money to get more?: I choose not to answer this question Within the past 12 months, did you worry whether your food would run out before you got money to buy more?: I choose not to answer this question Do you have trouble paying for medicines?: I choose not to answer this question Do you have trouble getting transportation to medical appointments?: I choose not to answer this question Do you have trouble paying your heating and electricity bill?: I choose not to answer this question Do you have trouble taking care of your child, family member or friend?: I choose not to answer this question Do you have trouble with day-to-day activities such as bathing, preparing meals, shopping, managing finances, etc.?: I choose not to answer this question Are you currently unemployed and looking for a job?: I choose not to answer this question Are you interested in more education?: No Please select the resources that you would like help with: None Currently or been in a relationship where the following occur: No concerns reported THRIVE Score: 0 AUDIT C Alcohol Use Questionnaire (AUDIT-C) 1. How often do you have a drink containing alcohol?: Never 3. How often do you have six or more drinks on one occasion?: Never Total Score: 0 Score Reviewed/Action Taken: Yes LAMONTE-7 AMB Questionnaire LAMONTE-7 Date LAMONTE - 7 assessed: 09/06/24 Feeling nervous, anxious, or on edge: 0 = Not at all Not being able to stop or control worryin = Not at all Worrying too much about different things: 0 = Not at all Trouble relaxin = Not at all Being so restless that it is hard to sit still: 0 = Not at all Becoming easily annoyed or irritable: 0 = Not at all Feeling afraid as if something awful might happen: 0 = Not at all Total LAMONTE-7 score (0-4 normal; 5-9 mild; 10-14 moderate; 15-21 severe): 0 Source: Developed by Drs. Fredy Barrios, Karely Mora, Oskar Roca and colleagues, with an educational david from [employer]. LAMONTE-7 Assessment Billing LAMONTE-7 Assessment Tool: LAMONTE-7 Assessment 78606 Physical exam (Primary Care) Vital Signs: Last Vital Signs Temp 98.2 F 12/07/24 09:15 Pulse 56 12/07/24 09:15 Resp 18 12/07/24 09:15 BP 138/70 12/07/24 09:15 Pulse Ox 98 12/07/24 09:15 Oxygen Delivery Method Room Air 12/07/24 09:15 BMI result Body Mass Index 28.9 Tobacco/Smoking Status: Tobacco use Status Tobacco use date assessed 12/07/24 12/07/24 09:23 Patient Tobacco Use Status Former Tobacco user 12/07/24 09:13 Tobacco use type Cigarette 12/07/24 09:13 e-Cigarette/Vaping Use Never Used 12/07/24 09:13 Thrive Assessment: Date of Thrive Assessment Date Thrive assessed 08/30/24 12/07/24 09:13 Currently or been in a relationship where the following occur: No concerns reported Results AMB Hemoglobin A1c AMB Hemoglobin A1c 7.3 % Last Edit by Jerilyn Avalos MA on 12/07/24 09:29 Results Reviewed Results Reviewed: Laboratory Last Values Hgb A1c (Clinic) 7.3 % (4.0-6.0) H 12/07/24 09:14 Coding Level of Care Code Est Pt Level 3 (49519) Est Pt Prev Care >65y(53891) Diagnoses Diabetes E11.9 Vitamin D deficiency E55.9 Smoker F17.200 Dixon of foot L84 Enlarged prostate N40.0 Prostate nodule N40.2 Encounter for routine adult physical exam with abnormal findings Z00.01 Additional Codes LAMONTE-7 Assessment Billing - LAMONTE-7 Assessment Tool: LAMONTE-7 Assessment 81402 ([id number]) Assessment & Plan Assessment & Plan (1) Diabetes: Code(s): E11.9 - Type 2 diabetes mellitus without complications Category: Medical (2) Vitamin D deficiency: Code(s): E55.9 - Vitamin D deficiency, unspecified Category: Medical (3) Smoker: Code(s): F17.200 - Nicotine dependence, unspecified, uncomplicated Category: Social Hx (4) Dixon of foot: Code(s): L84 - Corns and callosities Category: Medical (5) Enlarged prostate: Code(s): N40.0 - Benign prostatic hyperplasia without lower urinary tract symptoms Category: Medical (6) Prostate nodule: Code(s): N40.2 - Nodular prostate without lower urinary tract symptoms Category: Medical (7) Encounter for routine adult physical exam with abnormal findings: Code(s): Z00.01 - Encounter for general adult medical examination with abnormal findings Category: Medical Plan . Orders: Orders Complete Blood Count Auto Diff Today E11.9 - Type 2 diabetes mellitus without complications Comprehensive [place]. Panel Fast Today E11.9 - Type 2 diabetes mellitus without complications UA CC w/rflx Micro + Cult Today E11.9 - Type 2 diabetes mellitus without complications Lipid Panel Today E11.9 - Type 2 diabetes mellitus without complications Vitamin D 25-OH Total Today E55.9 - Vitamin D deficiency, unspecified AMB Hemoglobin A1c Today Z13.9 - Encounter for screening, unspecified TSH reflex Free T4 Today E11.9 - Type 2 diabetes mellitus without complications Referrals Lung Cancer Screening Referral F17.200 - Nicotine dependence, unspecified, uncomplicated Podiatry Referral L84 - Corns and callosities Urology Referral N40.0 - Benign prostatic hyperplasia without lower urinary tract symptoms, N40.2 - Nodular prostate without lower urinary tract symptoms Medications: New semaglutide (Ozempic) for 4 weeks 0.25 mg (0.368 mL) subcut QWEEK 3 mL 0RF
[2024-12-07 09:15] VITALS: BP 138/70; PULSE 56; RESP 18; TEMP 36.8; O2SAT 98; BMI 28.9
--- OUTSIDE RECORDS SUMMARY | 2024-12-07 09:19 | XMS_ITS | Clinical Summary ---
Author Organization [facility] ity Address [address] [place] [address] Care Team Providers Care Sports Apparel Internship Name Role Phone Unavailable Primary Care Provider [...] Vaccines (1 of 2) 2004 COVID-19 Vaccine (1 - 2023-2 5 season) 2024 Influenza Vaccine (#1) 2025 RSV Immunization Adult Patie nts (1 [...]
--- OUTSIDE RECORDS SUMMARY | 2024-12-07 09:19 | XMS_ITS | Patient Health Record ---
[facility] Address [address] [place] [address] Care Team Providers Care Meter Setter Name Role Phone Keith Li Primary Care Provider Edilia Heredia Unavailable [phone] Reason For Referral No Information Problems No Known Problems Plan Of Treatment Pending Test Test Name Order Date ,[id number] TENDON SHEATH/LIGAMENT 0 12/08/2015 Insurance Providers Payer Name Payer Address Payer Phone Subscriber Number Group Number Insured Name Patient Relationship to Insured Coverage Start Date Coverage End Date [employer]age [address] [place] [address] [id number] John Jasso Self - patient is the insured Medical (General) History Medical History History ICD Code Arthritis Diverticulosis Measles Chicken pox Surgical History Surgery Date(Month/Year) abdominal surgery shoulder surgery elbow sx
== END 2024-12-07 10:02 | disposition home or self-care (01) ==
LOC: HO.HMCC 09:02
PROVIDERS: PCP Nurse Practitioner Primary Care; Visit Provider Nurse Practitioner Family
DX: Z00.01 Encounter for general adult medical examination with abnormal findings (principal); E11.9 Type 2 diabetes mellitus without complications; E55.9 Vitamin D deficiency, unspecified; F17.200 Nicotine dependence, unspecified, uncomplicated; L84 Corns and callosities; N40.0 Benign prostatic hyperplasia without lower urinary tract symptoms; N40.2 Nodular prostate without lower urinary tract symptoms

== ENCOUNTER → 2024-12-07 09:01 | Outpatient (BNVA) | payer MEDICARE, SELFPAY | PROVIDERS: PCP Nurse Practitioner Primary Care; Visit Provider Nurse Practitioner Family | DX: Z00.01 Encounter for general adult medical examination with abnormal findings (principal); E11.9 Type 2 diabetes mellitus without complications; R33.8 Other retention of urine; N39.43 Post-void dribbling; E55.9 Vitamin D deficiency, unspecified; F17.210 Nicotine dependence, cigarettes, uncomplicated; L84 Corns and callosities; N40.1 Benign prostatic hyperplasia with lower urinary tract symptoms; N40.3 Nodular prostate with lower urinary tract symptoms | CPT/HCPCS: 83036; 96127; 99212; 99397 ==

== ENCOUNTER 2025-02-11 10:10 | Outpatient (AMB) | payer MEDICARE, SELFPAY ==
--- NOTE | 2025-02-11 07:59 | MHC.OFFVIS ---
Intake Visit Reasons: Former Smoker Allergies vancomycin Allergy (Severe, Verified 12/07/24 09:45) Facial Swelling HPI HPI Former Smoker: Details: Initial visit for this 69yo former smoker with a 35PYH. Patient started smoking at age 19 for 36 years at 1ppd. He quit 14 years ago in 2010 . Denies marijuana use. Denies second hand smoke exposure. 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 . Denies known family history of lung cancer. Denies personal history of cancers. Denies chest CT in last year. . Denies recent travel outside the [place]. Denies recent respiratory illness or recent hospitalization for respiratory issues. Denies testing positive for COVID. Denies receiving COVID Vaccine. . Denies fever, chills, new/worsening cough, hemoptysis, hoarseness or dysphagia. Denies significant chest pain, significant dyspnea or unintentional weight loss. Patient Lung Cancer Screening Questionnaire reviewed with patient by provider. . Shared Decision Making Completed. Patient meets criteria. Discussed in detail with patient, the risk vs benefit of LDCT screening. Patient consents to proceed with scan. Discussed and encouraged continued smoking cessation. [facility] Medical History (Updated 02/11/25 @ 10:21 by Zoe Kuhn PA-C) Ocular migraine Personal history of nicotine dependence Eczema DDD (degenerative disc disease), lumbar Hyperlipidemia Diabetes Diverticulitis Surgical History (Updated 02/11/25 @ 10:28 by Zoe Kuhn PA-C) History of left inguinal hernia repair History of rotator cuff surgery History of elbow surgery History of resection of large bowel Family History Brother Heart attack Prostate cancer Brother Colon cancer Bone cancer Mother Heart attack Father Dementia Social History (Updated 02/11/25 @ 10:18 by Zoe Kuhn PA-C) Housing: House Patient Tobacco Use Status: Former Tobacco user Tobacco use type: Cigarette Years Smoked: (onset 19yo, 1ppd x 36yrs, 35pyh, quit 2010) e-Cigarette/Vaping Use: Never Used Second Hand Smoke Exposure: No service: No Current occupational status: retired Cognitive needs: No Hearing needs: No Vision needs: No Assessment & Plan Assessment & Plan (1) Personal history of nicotine dependence: Comment: (onset 19yo, 1ppd x 36yrs, 35pyh, quit 2010) Code(s): Z87.891 - Personal history of nicotine dependence Category: Medical Plan: - SDM visit completed today in office. - Patient meets criteria for LDCT for lung cancer screening purposes and is asymptomatic. - Smoking cessation counseling offered. Patients can always call [phone]. - Will arrange for a LDCT scan of the chest for screening purposes at [facility]. - Risks, benefits, and alternatives were discussed in detail and the patient agrees to proceed. - Risks discussed include but are not limited to: radiation exposure, anxiety during testing and while awaiting results, false negatives, false positives and possibility of additional intervention such as further imaging or surgical procedures for benign disease. - Benefits are obviously detection of lung cancer at an early stage which can lead to improved outcomes. - Discussed the importance of screening program compliance with adherence to yearly LDCT scan as scheduled - or sooner interval scans for personalized screening regimen. - Discussed follow up plan. Our office will send a letter discussing results and if needed set up phone call and office visit based on CT findings. - Patient educated on results categorization and the management decisions for suspicious findings potentially found on the screening LDCT scan. Any patient with a Lung RADS score of 3 or 4 will be reviewed by a multidisciplinary team at [facility] to form a plan of action in regards to scan findings. - If further work up is warranted for a suspicious lung finding this will be followed by the Lung Cancer Screening program in conjunction with the Thoracic Surgery Department at [facility]. - A copy of the office note and LDCT will be sent to the patient's PCP - as well as documentation on any associated further plans of care. - Incidental findings on LDCT are the PCP's responsibility. These findings are indicated with an S finding on the LDCT Assessment. A note discussing the findings will be sent to the PCP who is then responsible for further management. - All questions answered.? Coding Level of Care Code Lung Cancer Screening G0296 Diagnoses Personal history of nicotine dependence Z87.891
--- OUTSIDE RECORDS SUMMARY | 2025-02-11 10:46 | XMS_ITS | Clinical Summary ---
Author Organization [facility] ity Address [address] [place] [address] Care Team Providers Care Body Rolling Machine Tender Name Role Phone Unavailable Primary Care Provider [...] 2004 Zoster Vaccines (1 of 2) 2004 Depression Screening 05/26/2024 COVID-19 Vaccine (1 - 2023-2 5 season) 2025 Influenza Vaccine (#1) 2025 RSV Immunization Adult [...]
== END 2025-02-11 10:32 | disposition home or self-care (01) ==
LOC: HO.HPS 10:11
PROVIDERS: PCP Nurse Practitioner Family; Referring Provider Nurse Practitioner Family; Visit Provider Physician Assistant Medical
DX: Z87.891 Personal history of nicotine dependence (principal)
CPT/HCPCS: G0296

== ENCOUNTER 2025-02-11 10:28 | Outpatient (REF) | payer MEDICARE, SELFPAY ==
--- NOTE | ~2025-02-11 | CT_ITS ---
CLINICAL HISTORY: Z87.891 - Personal history of nicotine dependence CT lung cancer screening (LDCT) Comparison: None provided Technique: Axial CT images of the chest using low-dose technique. Referring provider counseled the patient on shared decision-making for LDCT screening. Additional counseling was provided on smoking cessation. Effective radiation dose total: DLP 44.7 mGycm, CTDIvol 1.3 mGy. Findings: No dense focal airspace consolidation. No pleural effusion. No pneumothorax. Central airways are patent. No masses or suspicious pulmonary nodules. Mild developing scarring in bilateral lung apices. Background of mild emphysema. Normal heart size. No pericardial effusion. Mild multivessel coronary artery calcifications. Calcified but nonaneurysmal thoracic aorta. Normal caliber central pulmonary arteries. Unremarkable esophagus. No definite pathologically enlarged lymph nodes. No acute findings within visualized lower neck. Visualized upper abdomen appears unremarkable. No acute osseous abnormality. No lytic or sclerotic osseous lesions. Impression: 1. No acute cardiopulmonary abnormality identified. 2. Mild pulmonary emphysema. 3. No masses or suspicious pulmonary nodules. Continued annual surveillance with low-dose chest CT is recommended. 4. Additional findings as above. This document has been electronically signed by: Tashia Bains MD on 02/13/2025 19:14:48
== END 2025-02-11 10:29 | disposition home or self-care (01) ==
LOC: HO.CT 10:28
PROVIDERS: PCP Nurse Practitioner Family; Visit Provider Physician Assistant Medical
DX: Z12.2 Encounter for screening for malignant neoplasm of respiratory organs (principal); Z87.891 Personal history of nicotine dependence
CPT/HCPCS: 71271; G0296

== ENCOUNTER → 2025-02-11 10:29 | Outpatient (BNV) | payer MEDICARE, SELFPAY | PROVIDERS: PCP Nurse Practitioner Family; Visit Provider Radiology Diagnostic Radiology | DX: Z12.2 Encounter for screening for malignant neoplasm of respiratory organs (principal); Z87.891 Personal history of nicotine dependence | CPT/HCPCS: 71271 ==

== ENCOUNTER 2025-03-02 08:49 | Outpatient (AMB) | payer MEDICARE, SELFPAY ==
--- NOTE | 2025-03-02 08:53 | MHC.OFFVIS ---
Intake Visit Reasons: BPH Intake Note: Patient is present for BPH Urology Medication:NONE Antibiotic Allergy:VANCOMYCIN Blood Thinner:ASPIRIN TODAY'S PVR:0ML'S Memorandum Statement Clerk Required: No Allergies vancomycin Allergy (Severe, Verified 03/02/25 09:30) Facial Swelling Medication List - Last Reconciled 03/02/25 by TRACY Kasper- aspirin 81 mg PO DAILY blood sugar diagnostic (FreeStyle Lite Strips) test blood sugar once a day blood-glucose meter (FreeStyle Lite Meter kit) Test blood sugar once a day ezetimibe 10 mg PO DAILY lancets (FreeStyle Lancets) Test blood sugar once a day Saccharomyces boulardii (Digest Probiotic (S.boulardii)) 250 mg PO BID semaglutide (Ozempic) 0.25 mg (0.368 mL) subcut QWEEK HPI Comments Details: John is a 69-year-old male patient of Dr. Virgen. Has a past medical history of hyperplastic colon polyp, ocular migraines, previous history of nicotine dependence quit in 2010, eczema, degenerative disc disease, hyperlipidemia, diabetes, and diverticulitis. In discussion with the patient today he reports having followed up with his PCP in on IJEOMA patient was noted to have a palpable nodule in recommendations were made for urology referral for further assessment evaluation. IJEOMA offered however deferred. He reports over 30 years ago following up with a urologist at [facility] and having had prostate biopsy that was negative. He does report a family history of prostate cancer. He reports 2 of his brothers have prostate cancer. PSAs are as follows: PSA: 324 0.7, 09/17 0.5 He also reports a previous history of nephrolithiasis and has followed up with Dr. Silverman however this has been over 3 years ago. In review of patient's chart it appears patient underwent left-sided ureteroscopy with Dr. Silverman 09/14. He does report noting episodes of urinary frequency however does not find them bothersome. He denies any bothersome urinary issues. He denies incontinence, nocturia, hematuria, dysuria, foul smelling urine, changes to urinary stream, flank pain, fever, and or chills. He is happy with his current voiding parameters. In office urinalysis results reviewed with the patient today. PVR 0 mL. We did discussed at length potential causes of nephrolithiasis as well as palpable prostate nodule. We discussed further treatment options and risks and benefits of these treatment options. He does discuss his longstanding history of back pain and follows up with pain management at [facility] as this is a workman's comp claim. All questions were answered. He otherwise offers no other issues or concerns at this time. [facility] Medical History Hyperplastic colon polyp Ocular migraine Personal history of nicotine dependence Eczema DDD (degenerative disc disease), lumbar Hyperlipidemia Diabetes Diverticulitis Surgical History (Updated 02/11/25 @ 10:33 by Zoe Kuhn PA-C) History of cystoscopy History of colonoscopy History of left inguinal hernia repair History of rotator cuff surgery History of elbow surgery History of resection of large bowel Family History Brother Heart attack Prostate cancer Brother Colon cancer Bone cancer Mother Heart attack Father Dementia Social History (Updated 02/11/25 @ 10:18 by Zoe Kuhn PA-C) Housing: House Patient Tobacco Use Status: Former Tobacco user Tobacco use type: Cigarette Years Smoked: (onset 19yo, 1ppd x 36yrs, 35pyh, quit 2010) e-Cigarette/Vaping Use: Never Used Second Hand Smoke Exposure: No service: No Current occupational status: retired Cognitive needs: No Hearing needs: No Vision needs: No Review of Systems Const All systems reviewed & are unremarkable except as noted in HPI and below Physical Exam Const General: cooperative, healthy appearing, comfortable, no acute distress, well developed, alert and awake Orientation/consciousness: patient oriented x3 Limitations: no limitations HEENT Head: Yes normal to inspection, Yes normocephalic and Yes atraumatic Ears: hearing grossly normal bilaterally Eyes General: appearance normal, both eyes and all related structures Neck Neck: Yes normal visual inspection and Yes trachea midline Chest Chest palpation & inspection: normal inspection of the chest Resp Effort & Inspection: normal respiratory effort and able to speak in complete sentences Cardio Rate: regular rate GI Inspection: Yes normal to inspection General: Yes no CVA tenderness Back/Spine/Pelvis Back: no CVA tenderness Skin General skin exam: no rashes or lesions noted Neuro General: patient oriented x3 Extrem General: Yes normal to inspection Psych Appearance: grossly normal and well kempt Mental Status: mental status grossly normal Speech and movement: Normal speech and movement present and Clear speech present Affect: normal affect Attitude: cooperative Thought process: Normal thought process present Thought content: Normal thought content present Insight: Fair insight present (Psych) Judgement: Fair judgement present (Psych) Office Procedures Post Void Residual Post Residual Void Post Void Residual (PVR): 0 11235-Adtd Void Residual by ultrasound Results AMB Urinalysis, Automated UA Leukoctes 15 Melissa/uL Last Edit by VISHAL Bermudez on 03/02/25 09:08 UA Nitrite Negative Last Edit by VISHAL Bermudez on 03/02/25 09:08 UA Urobilinogen 0.2 mg/dL Last Edit by VISHAL Bermudez on 03/02/25 09:08 UA Protein 15 mg/dL Last Edit by VISHAL Bermudez on 03/02/25 09:08 UA pH 6.0 Last Edit by VISHAL Bermudez on 03/02/25 09:08 UA Blood 0 Ephraim/uL Last Edit by VISHAL Bermudez on 03/02/25 09:08 UA Specific [place] 1.010 Last Edit by VISHAL Bermudez on 03/02/25 09:08 UA Ketone Negative Last Edit by VISHAL Bermudez on 03/02/25 09:08 UA Bilirubin 0 mg/dL Last Edit by VISHAL Bermudez on 03/02/25 09:08 UA Glucose 0 mg/dL Last Edit by VISHAL Bermudez on 03/02/25 09:08 Results Reviewed Results Reviewed: Laboratory Last Values Urine pH (Auto) 6.0 03/02/25 09:07 Specific [place] (Auto) 1.010 03/02/25 09:07 Urine Protein (Auto) 15 mg/dL 03/02/25 09:07 Glucose (UA)(Auto) 0 mg/dL 03/02/25 09:07 Urine Ketones (Auto) Negative 03/02/25 09:07 Urine Blood (Auto) 0 Ephraim/uL 03/02/25 09:07 Urine Nitrite (Auto) Negative 03/02/25 09:07 Urine Bilirubin (Auto) 0 mg/dL 03/02/25 09:07 Urine Urobilinogen (Auto) 0.2 mg/dL 03/02/25 09:07 Leukocyte Esterase (Auto) 15 Melissa/uL 03/02/25 09:07 Assessment & Plan Assessment & Plan (1) Enlarged prostate: Code(s): N40.0 - Benign prostatic hyperplasia without lower urinary tract symptoms Category: Medical (2) Prostate nodule: Code(s): N40.2 - Nodular prostate without lower urinary tract symptoms Category: Medical (3) Family history of prostate cancer: Code(s): Z80.42 - Family history of malignant neoplasm of prostate Category: Medical (4) Nephrolithiasis: Code(s): N20.0 - Calculus of kidney Category: Medical (5) Urinary frequency: Code(s): R35.0 - Frequency of micturition Category: Medical Plan In office urinalysis results reviewed with the patient today; as noted above. PVR 0 mL Will obtain retroperitoneal ultrasound for further assessment evaluation. Will obtain MRI for further assessment evaluation. IJEOMA was offered however deferred. Will obtain PSA for further assessment evaluation. He reports be happy with current voiding parameters. We did discussed potential causes of prostate nodule, urinary frequency, and nephrolithiasis; we discussed further workup in risks and benefits of these interventions. All questions were answered. Follow-up in 3 months with imaging and lab to be completed prior; or sooner with any issues, concerns, and or questions. Orders: Orders AMB Urinalysis Automated Today Z13.9 - Encounter for screening, unspecified US retroperitoneal comp Today N40.0 - Benign prostatic hyperplasia without lower urinary tract symptoms, N40.2 - Nodular prostate without lower urinary tract symptoms, Z80.42 - Family history of malignant neoplasm of prostate MR pelvis wo/w con Today C61 - Malignant neoplasm of prostate Prostate Specific Antigen Today N40.0 - Benign prostatic hyperplasia without lower urinary tract symptoms, N40.2 - Nodular prostate without lower urinary tract symptoms Patient Instructions: The patient had an opportunity to ask questions regarding the treatment plan. All questions were answered. Physical exam, labs, and imaging were discussed and reviewed in detail. As well as risks, benefits, and discussion of treatment choices. No major barriers to understanding were identified. The patient expressed understanding and agreement with the above treatment plan. The patient was made aware they should contact our office by phone for worsening of their current condition, the appearance of new symptoms, or with any questions or concerns. Compliance is encouraged with any medications and follow up testing that is ordered. It is a privilege to be allowed the opportunity to participate in? your urological care.? Again, if you have any questions or concerns If you have any questions or concerns please do not hesitate to contact me. The office is [phone]. This note is constructed using voice recognition software. While every effort has been made to ensure accuracy ammonia box tender errors may have been included. Yours sincerely, DAFNE Kasper Coding Level of Care Code New Pt Level 3 (32437) Diagnoses Enlarged prostate N40.0 Prostate nodule N40.2 Family history of prostate cancer Z80.42 Nephrolithiasis N20.0 Urinary frequency R35.0 CPT Codes Post Residual Void - PVR CPT Code: 25077-Djcp Void Residual by ultrasound ([id number])
== END 2025-03-02 09:19 | disposition home or self-care (01) ==
LOC: HO.HUSH 08:50
PROVIDERS: PCP Nurse Practitioner Primary Care; Visit Provider Nurse Practitioner Family
DX: N40.0 Benign prostatic hyperplasia without lower urinary tract symptoms (principal); N40.2 Nodular prostate without lower urinary tract symptoms; Z80.42 Family history of malignant neoplasm of prostate; N20.0 Calculus of kidney; R35.0 Frequency of micturition; Z13.9 Encounter for screening, unspecified
CPT/HCPCS: 99203

== ENCOUNTER → 2025-03-02 08:49 | Outpatient (BNVA) | payer MEDICARE, SELFPAY | PROVIDERS: PCP Nurse Practitioner Primary Care; Visit Provider Nurse Practitioner Family | DX: N40.0 Benign prostatic hyperplasia without lower urinary tract symptoms (principal); R35.0 Frequency of micturition; Z80.42 Family history of malignant neoplasm of prostate | CPT/HCPCS: 51798; 81003; 99202 ==

== ENCOUNTER 2025-04-18 09:22 | Outpatient (REF) | payer MEDICARE, SELFPAY ==
[2025-04-18 10:00] LABS: MANUAL DIFF FLAG NO
[2025-04-18 10:17] LABS: Hematocrit 40.7 % (42.0-52.0); Hemoglobin 13.7 g/dl (14.0-18.0); Imm Gran Abs Auto 0.06 X10*3/uL (0.00-0.03); Imm Gran Pct Auto 0.7 % (0.0-0.4); Lymphocytes Absolute Auto 2.1 X10*3/uL (1.2-4.9); Mean Corpuscular HGB Conc 33.7 g/dl (31.0-36.0); Mean Corpuscular Hemoglobin 32.8 pg (27.0-33.0); Mean Corpuscular Volume 97.4 fL (80.0-98.0); NRBC Abs Auto 0.000 X10*3/uL (0.0-0.012); NRBC Pct Auto 0.0 /100WBC (0.0-0.2); Platelet Count 294 X10*3/uL (160-400); Red Blood Count 4.18 X10*6/uL (4.60-5.80); White Blood Count 8.6 X10*3/uL (4.8-10.8)
--- OUTSIDE RECORDS SUMMARY | 2025-04-18 10:32 | XMS_ITS | Clinical Summary ---
Author Organization [facility] ity Address [address] [place] [address] Care Team Providers Care Clinical Business Analyst Name Role Phone Unavailable Primary Care Provider [...] Depression Screening 05/26/2024 COVID-19 Vaccine (1 - 2024-2 6 season) 2025 Influenza Vaccine (#1) 2025 RSV [...]
--- OUTSIDE RECORDS SUMMARY | 2025-04-18 10:32 | XMS_ITS | Patient Health Record ---
Author Organization [facility] Address [address] [place] [address] Care Team Providers Care Tile Layer Helper Name Role Phone Bandar Miranda Primary Care Provider Unav ailable Edilia Nicolas Unavailable [phone] Allergies Allergen (clinical drug ingredient) Drug/Non Drug Allergy documented on EMR Reaction Allergy Type Onset Date Status vancomycin Vancomycin HCl swelling, itching Drug Allergy Active Results Component Value Reference Range Notes HEMOGLOBIN A1C (GLYCOHEMOGLO BIN) Reviewed date:02/23/2025 09:33:13 AM Interpretation: Performing Lab: Notes/Report: HEMOGLOBIN A1C % (HH) 7.2 Reason For Referral No Information Medications Medication SIG (Take, Route, Frequency, Duration) Notes Start Date End Date Status Ozempic (0.25 or 0.5 MG/DOSE) 2 MG/3ML as directed Subcutaneous Active Ezetimibe 10 MG 1 tablet Orally Once a day Active Immunizations Vaccine Route Administration Date Status Comme nts Influenza Unknown 02/24/2024 Administered Social History AUDIT-C (Standard) Question Answer Notes Did you have a drink containing alcohol in the p ast year? No Points 0 Interpretation Negative Problems Problem Type SNOMED Code ICD Code Onset Dates Problem Status W/U Status Risk Notes Problem Plantar wart ([id number]) Plantar wart (B07.0) Active confirmed Problem Polyneuropathy due to type 2 diabetes mellitus (684830045) Type 2 diabetes mellitus with diabetic polyneuropathy (E11.42) Active confirmed Vital Signs Blood pressure diastolic 80 mm Hg 02/23/2025 Height 5ft6in in 02/23/2025 Blood pressure systolic 122 mm Hg 02/23/2025 Weight 169 lbs 02/23/2025 BMI 27.27 kg/m2 02/23/2025 Encounters Encounter Location Date Provider Diagnosis [facility] [address] [place] [address] 02/23/2025 Edilia Nicolas Type 2 diabetes mellitus with diabetic polyneuropathy E11.42 ; Plantar wart B07.0 and Left foot pain M79.672 Assessments Encounter Date Diagnosis (ICD Code) Assessment Notes Treatment Notes Treatment Clinical Notes Section Notes 02/23/2025 Plantar wart (ICD-10 - B07.0) 02/23/2025 Type 2 diabetes mellitus with diabetic polyneuropathy (ICD-10 - E11.42) 02/23/2025 Left foot pain (ICD-10 - M79.672) Plan Of Treatment Pending Test Test Name Order Date ,[id number] TENDON SHEATH/LIGAMENT 0 12/08/2015 Next Appt Details Provider Name:Edilia alexander, 02/28/2026 02:00:00 PM, [address] [place] [address], [phone], Insurance Providers Payer Name Payer Address Payer Phone Subscriber Number Group Number Insured Name Patient Relationship to Insured Coverage Start Date Coverage End Date [employer] [place] [employer] [address] [place] [address] [id number] John Jasso Self - patient is the insured 4 Medical (General) History Medical History History ICD Code Arthritis Diverticulosis Measles Chicken pox Back,Hip,and Knee pain CAD (Cholesterol) Diabetic Headaches/Migraines Joint implants/screws Surgical History Surgery Date(Month/Year) abdominal surgery shoulder surgery elbow sx colon 2004
[2025-04-18 11:30] LABS: Prostate Specific Antigen 0.61 ng/mL (<0.05-4.0)
[2025-04-18 11:34] LABS: Alanine Aminotransferase 40 U/L (0-40); Albumin Level 4.4 g/dL (3.5-5.0); Alkaline Phosphatase 77 U/L (39-117); Anion Gap 12 (12-20); Aspartate Amino Transferase 23 U/L (5-37); Blood Urea Nitrogen 20 mg/dL (9-16); Calcium 9.1 mg/dL (8.4-10.2); Carbon Dioxide 24 mmol/L (22-29); Chloride 109 mmol/L (96-108); Cholesterol 180 mg/dL (<200); Estimated Glomerular Filt Rate > 60; HDL Cholesterol 33 mg/dL (>40); Potassium 4.1 mmol/L (3.3-5.1); Sodium 141 mmol/L (135-145); Total Protein 7.4 g/dL (6.5-8.0); Triglycerides 126 mg/dL (<150)
[2025-04-18 13:19] LABS: Appearance Urine Clear; Glucose Urine UA Negative (Negative); PH 5.5 (5.0-9.0); Specific Gravity - Urine 1.015 (1.005-1.025); UMIC TRIGGER UACC YES
== END 2025-04-18 09:23 | disposition home or self-care (01) ==
LOC: HO.HMGCLDS 09:22
PROVIDERS: Nurse Practitioner Family; PCP Nurse Practitioner Family; Visit Provider Nurse Practitioner Family
DX: E11.9 Type 2 diabetes mellitus without complications (principal); N40.0 Benign prostatic hyperplasia without lower urinary tract symptoms; N40.2 Nodular prostate without lower urinary tract symptoms; E55.9 Vitamin D deficiency, unspecified; Z12.5 Encounter for screening for malignant neoplasm of prostate
CPT/HCPCS: 36415; 80053; 80061; 81001; 82306; 84153; 84443; 85025

== ENCOUNTER 2025-04-25 09:59 | Outpatient (AMB) | payer MEDICARE, SELFPAY ==
[2025-04-25 10:03] VITALS: BP 120/62; PULSE 62; O2SAT 97; BMI 27.4
--- NOTE | 2025-04-25 10:03 | A.OFFPC_ITS ---
Vital Signs 04/25/25 10:03 Height 5 ft 6 in Weight 170 lb BMI 27.4 BP 120/62 Blood Pressure Location Lt brachial Position Sitting Pulse 62 Pulse Source Pulse Oximeter Pulse Oximetry (%) 97 Intake Visit Reasons: 4m f/u Allergies vancomycin Allergy (Severe, Verified 04/25/25 10:03) Facial Swelling Medication List - Last Reconciled 04/25/25 by Bandar Bhakta, BLANKET BINDER- aspirin 81 mg PO DAILY bergamot extract ([place] Bergamot) 1,000 mg (2 x 500 mg) PO DAILY 90 days blood sugar diagnostic (FreeStyle Lite Strips) test blood sugar once a day blood-glucose meter (FreeStyle Lite Meter kit) Test blood sugar once a day diclofenac potassium 50 mg PO TID ezetimibe 10 mg PO DAILY gabapentin 100 mg PO BEDTIME lancets (FreeStyle Lancets) Test blood sugar once a day Saccharomyces boulardii (Digest Probiotic (S.boulardii)) 250 mg PO BID semaglutide (Ozempic) 0.5 mg (0.736 mL) subcut QWEEK Tobacco use date assessed: 12/07/24 Fall risk assessment: No Falls in past year Last assessed Fall Risk: 04/25/25 Dental Screening Dental Screen Date: 12/07/24 HPI 4m f/u HPI Details Chief Complaint The patient presents for a follow-up visit for diabetes and dyslipidemia. History of Present Illness The patient is a 69 year old individual presenting for follow-up for diabetes. The patient's diabetes is well-controlled, with a recent HbA1c of 5.4. The patient also has a history of dyslipidemia and is currently on generic Zetia, but the LDL remains elevated at 122. The patient's eye exam is up to date. Social History Health Maintenance - Eye exam is up to date. Review of Systems - General: Reports feeling quite well. Physical Exam General: Cooperative, healthy appearing, comfortable, no acute distress and well developed Orientation: Patient oriented x3 Limitations: No limitations Head: Normal to inspection Ears: Hearing grossly normal bilaterally Nose: Normal external nose present Face and sinus: Normal facial exam Eyes: Appearance normal, both eyes and all related structures Neck: Normal visual inspection and Yes full ROM Respiratory: Normal respiratory effort and able to speak in complete sentences. Clear to auscultation bilaterally Cardiovascular: Regular rate and rhythm. Normal S1 and S2 GI: Normal to inspection. Soft to palpation and nontender Skin: No rashes or lesions noted Neuro: Patient oriented x3 Extremities: Normal to inspection. Feet were intact, + sensation with use of monofilament Results - Labs: - A1c: 5.4 - LDL: 122 Plan 1. Diabetes Mellitus The patient's diabetes is well-controlled, with a recent HbA1c of 5.4. Continue current management. 2. Dyslipidemia The patient has persistent dyslipidemia with an LDL of 122 despite being on generic Zetia. To further lower the LDL cholesterol, Kulpmont bergamot 1000 mg daily will be added to the regimen. A lipid panel will be rechecked in two months to assess the effectiveness of the new treatment. Discussion Notes I informed the patient that the diabetes is well-controlled, with an excellent HbA1c of 5.4. We discussed that despite being on Zetia, the LDL cholesterol remains elevated at 122. I recommended adding [place] bergamot 1000 mg daily to help lower the cholesterol levels. We will recheck lipid levels in two months to evaluate the response to the new therapy. Patient Instructions - Your diabetes is well-managed, with an A1c of 5.4, which is excellent. - Your LDL (bad) cholesterol is still a little high at 122. - Please start taking K[place] bergamot 10 00 mg once a day to help lower your cholesterol. - You will need to have a repeat blood t est in two months to recheck your cholesterol levels. [facility] Medical History Hyperplastic colon polyp Ocular migraine Personal history of nicotine dependence Eczema DDD (degenerative disc disease), lumbar Hyperlipidemia Diabetes Diverticulitis Surgical History History of cystoscopy History of colonoscopy History of left inguinal hernia repair History of rotator cuff surgery History of elbow surgery History of resection of large bowel Family History Brother Heart attack Prostate cancer Brother Colon cancer Bone cancer Mother Heart attack Father Dementia Social History Housing: House Patient Tobacco Use Status: Former Tobacco user Tobacco use type: Cigarette Years Smoked: (onset 19yo, 1ppd x 36yrs, 35pyh, quit 2010) e-Cigarette/Vaping Use: Never Used Second Hand Smoke Exposure: No service: No Current occupational status: retired Cognitive needs: No Hearing needs: No Vision needs: No Questionnaire Thrive Questionnaire Date Thrive assessed: 08/30/24 I am a: Patient What is your living situation today?: I have a steady place to live Within the past 12 months, did the food you bought not last and you didn't have the money to get more?: I choose not to answer this question Within the past 12 months, did you worry whether your food would run out before you got money to buy more?: I choose not to answer this question Do you have trouble paying for medicines?: I choose not to answer this question Do you have trouble getting transportation to medical appointments?: I choose not to answer this question Do you have trouble paying your heating and electricity bill?: I choose not to answer this question Do you have trouble taking care of your child, family member or friend?: I c hoose not to answer this question Do you have trouble with day-to-day activities such as bathing, preparing meals, shopping, managing finances, etc.?: I choose not to answer this question Are you currently unemployed and looking for a job?: I choose not to answer this question Are you interested in more education?: No Please select the resources that you would like help with: None Currently or been in a relationship where the following occur: No concerns reported THRIVE Score: 0 LAMONTE-7 AMB Questionnaire LAMONTE-7 Date LAMONTE - 7 assessed: 09/06/24 Source: Developed by Drs. Fredy Barrios, Karely Mora, Oskar Roca and colleagues, with an educational david from [employer]. Physical exam (Primary Care) Vital Signs: Last Vital Signs Pulse 62 04/25/25 10:03 BP 120/62 04/25/25 10:03 Pulse Ox 97 04/25/25 10:03 BMI result Body Mass Index 27.4 Tobacco/Smoking Status: Tobacco use Status Tobacco use date assessed 12/07/24 04/25/25 10:08 Patient Tobacco Use Status Former Tobacco user 04/25/25 10:08 Tobacco use type Cigarette 04/25/25 10:08 e-Cigarette/Vaping Use Never Used 04/25/25 10:08 Thrive Assessment: Date of Thrive Assessment Date Thrive assessed 08/30/24 04/25/25 10:08 Currently or been in a relationship where the following occur: No concerns reported Results AMB Hemoglobin A1c AMB Hemoglobin A1c 5.4 % Last Edit by Efrain Murrieta CMA on 04/25/25 10: 31 Results Reviewed Results Reviewed: Laboratory Last Values Hgb A1c (Clinic) 5.4 % (4.0-6.0) 04/25/25 10:11 Coding Level of Care Code Est Pt Level 3 (58429) Diagnoses Diabetes type 2, controlled E11.9 Hyperlipidemia, unspecified hyperlipidemia type E78.5 Hyperlipidemia type: unspecified Assessment & Plan Assessment & Plan (1) Diabetes type 2, controlled: Code(s): E11.9 - Type 2 diabetes mellitus without complications Category: Medical (2) Hyperlipidemia: Comment: does not tolerate statins Code(s): E78.5 - Hyperlipidemia, unspecified Category: Medical Qualifiers: Hyperlipidemia type: unspecified Qualified Code(s): E78.5 - Hyperlipidemia, unspecified Plan . Orders: Orders Comprehensive [place]. Panel Fast Today E11.9 - Type 2 diabetes mellitus without complications, E78.5 - Hyperlipidemia, unspecified AMB Hemoglobin A1c Today Z13.9 - Encounter for screening, unspecified Lipid Panel Today E11.9 - Type 2 diabetes mellitus without complications, E78.5 - Hyperlipidemia, unspecified Medications: New bergamot extract ([place] Bergamot) 1,000 mg (2 x 500 mg) PO DAILY 180 caps 1RF 90 days
== END 2025-04-25 11:13 | disposition home or self-care (01) ==
LOC: HO.HMCC 10:00
PROVIDERS: PCP Nurse Practitioner Family; Visit Provider Nurse Practitioner Family
DX: E11.9 Type 2 diabetes mellitus without complications (principal); E78.5 Hyperlipidemia, unspecified; Z13.9 Encounter for screening, unspecified

== ENCOUNTER → 2025-04-25 09:59 | Outpatient (BNVA) | payer MEDICARE, SELFPAY | PROVIDERS: PCP Nurse Practitioner Family; Visit Provider Nurse Practitioner Family | DX: E11.9 Type 2 diabetes mellitus without complications (principal); E78.5 Hyperlipidemia, unspecified | CPT/HCPCS: 83036; 99212 ==